=== PATIENT | male | born 1945 | race Caucasian/White ===

== ENCOUNTER → 2018-06-24 13:48 | Outpatient (CLI) | payer MEDICARE, OTHER, SELFPAY | PROVIDERS: Family Provider Internal Medicine; PCP Internal Medicine; Referring Provider Internal Medicine; Visit Provider Internal Medicine | DX: R09.89 Other specified symptoms and signs involving the circulatory and respiratory systems (principal) | CPT/HCPCS: 93225; 93226 ==

== ENCOUNTER 2018-07-25 10:51 | Emergency (ER) | payer MEDICARE, OTHER, SELFPAY ==
[2017-10-16 16:11] VITALS: BMI 26.2
[2018-07-25 10:52] VITALS: BP 112/69; PULSE 74; RESP 16; TEMP 36.3; O2SAT 94; BMI 25.2
--- NOTE | 2018-07-25 11:28 | EKG12_ITS ---
Test Reason : CP Blood Pressure : / mmHG Vent. Rate : 060 BPM Atrial Rate : 060 BPM P-R Int : 144 ms QRS Dur : 074 ms QT Int : 424 ms P-R-T Axes : 069 -30 063 degrees QTc Int : 424 ms Normal sinus rhythm Left axis deviation Septal infarct , age undetermined Abnormal ECG Confirmed by ALONA WALKER, LETY ([id number]), editor greeting card MUSTAPHA ECKERT ([id number]) on 07/29/2018 11:41:50 AM Referred By: KEISHA/EZRA Confirmed By:LETY SAGE MD
--- NOTE | 2018-07-25 11:30 | RAD_ITS ---
STUDY: X-RAY CHEST REASON FOR EXAM: Male, 73 years old. Chest pain, history of OR and stent TECHNIQUE: Single AP portable view of the chest. COMPARISON: Previous study of 06/19/2017 FINDINGS: site monitor leads are present. The lungs are clear and expanded. There is no demonstrated pleural abnormality. Normal size heart. Normal mediastinum and tremayne. Normal visualized pulmonary arteries. There are calcified plaques of the aortic arch. Normal visualized thoracic spine. Normal visualized ribs, clavicles, and shoulders. There is no demonstrated abnormality of the visualized soft tissue structures of the upper abdomen. RAD/Chest 1 View (Portable) IMPRESSION: Calcified plaques of the aortic arch. No acute cardiopulmonary disease process is seen. Electronically Signed: Charles Maria MD at 11:55 EST , Service support ,
[2018-07-25 11:31] VITALS: O2SAT 100
[2018-07-25 11:49] LABS: Absolute Lymphocyte Count 0.81 X10^3/ul (0.83-4.51); Absolute Neutrophil Count 4.6 X10^3/uL (2.0-7.7); Basophil# 0.04 X10^3/uL; Basophil% 0.6 % (0-1); Eosinophils% 4.5 % (0-5); Hematocrit 43.4 % (40-54); Hemoglobin 14.5 g/dl (13.0-16.5); Lymphocyte # 0.81 X10^3/ul (4.0); Lymphocyte % 12.1 % (19-41); Mean Corp Hgb Conc 33.4 g/gl (32-36); Mean Corpuscular Hgb 30.5 pg (27.0-32.0); Mean Corpuscular Volume 91.2 fL (80-94); Mean Platelet Vol. 10.7 fl (6.2-12.0); Monocyte# 0.94 X10^3/uL; Monocyte% 14.1 % (0-10); Neutrophil # 4.57 X10^3/uL (2.7-7.7); Neutrophil % 68.6 % (47-70); POSITIVE COUNT NO; POSITIVE DIFFERENTIAL NO; POSITIVE MORPHOLOGY NO; Platelet Count 206 K/mm3 (150-450); RBC Distribution Width CV 15.1 % (11.6-14.6); RBC Distribution Width SD 49.6 fl (35.1-43.9); Red Blood Count 4.76 M/mm3 (4.6-6.2); White Blood Count 6.7 K/mm3 (4.4-11.0)
[2018-07-25 12:01] LABS: Anion Gap 5 (5-15); BUN 12 mg/dL (7-18); BUN/Creat Ratio 11.7 RATIO (10-20); Calcium,Total 8.5 mg/dL (8.5-10.1); Chloride 108 mmol/L (98-107); Creatinine, Serum 1.03 mg/dL (0.70-1.30); EST Glomerular Filtration Rate 76 mL/min (>60); Est Glom Filt Rate - Afr Amer 91 mL/min (>60); Estimated Creatinine Clearance 63.64 ml/min; Glucose 99 mg/dL (74-106); Sodium Level 142 mmol/L (136-145)
[2018-07-25 12:11] VITALS: BP 124/70; PULSE 66; RESP 14; O2SAT 96
--- NOTE | 2018-07-25 13:05 | ED.DCSUM_ITS ---
- ER Visit Summary Date of Service: 07/25/18 Chief Complaint: Chest pain History of Present Illness: The patient is a 73 M with chest pain that is now resolved. It is mostly on the right side of his chest. He has had this in the past. He has no shortness of breath or cough. No fever or chills. He is now asymptomatic. He has a history of coronary artery disease. Physical Examination: Not appear in acute distress. Moist mucous membranes, no obvious facial deformity No C-spine tenderness supple neck. Regular rate and rhythm without any obvious murmurs Clear lungs bilaterally speaking in full sentences without any obvious respiratory distress. Right-sided chest wall pain is somewhat reproducible. Abdomen soft and nontender no guarding or rebound Moves all extremities without any difficulty or pain. Skin does not show any obvious rashes or lesions, no trauma. Alert oriented ?3 with no gross focal deficit Emergency Department Course and Treatment: Cardiac workup is unremarkable. Initial troponin is negative. The patient's risk factors I repeated a troponin, clinical history is unlikely for cardiac disease but for safety 2 different troponins were done. This was also unremarkable. 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 His worsening symptoms needs to return. Disposition: Discharge stable condition Impression: Chest pain This note was generated with [employer] dictation software. It may contain incorrect words, spelling, and punctuation that were not noted in review of the chart prior to signing ED Disposition - Plan for ED Patient: Disposition: Home or Assisted Living Chief Complaint: Chest Pain Instructions: ED Chest Pain Atypical Unkn Cause Referrals: Yen Hamlin DO [Primary Care Provider] - 3-5 Days
[2018-07-25 14:30] VITALS: BP 116/67; PULSE 75; RESP 18; O2SAT 92
[2018-07-25 15:21] VITALS: BP 118/102; PULSE 72; RESP 16; O2SAT 93
== END 2018-07-25 15:22 | disposition home or self-care (01) ==
PROVIDERS: Emergency Provider Emergency Medicine; Family Provider Internal Medicine; PCP Internal Medicine
DX: R07.9 Chest pain, unspecified (principal); I25.10 Atherosclerotic heart disease of native coronary artery without angina pectoris; J44.9 Chronic obstructive pulmonary disease, unspecified; I10 Essential (primary) hypertension; E78.00 Pure hypercholesterolemia, unspecified; Z79.02 Long term (current) use of antithrombotics/antiplatelets; Z79.899 Other long term (current) drug therapy
CPT/HCPCS: 71045; 80048; 84484; 85025; 93005; 99284; A4216

== ENCOUNTER → 2018-11-25 10:45 | Outpatient (CLI) | payer MEDICARE, OTHER, SELFPAY ==
[2018-11-11 13:01] VITALS: BMI 26.3
== END ==
PROVIDERS: Family Provider Internal Medicine; PCP Internal Medicine; Referring Provider Physician Assistant Medical; Visit Provider Physician Assistant Medical
DX: I49.3 Ventricular premature depolarization (principal)
CPT/HCPCS: 93225; 93226

== ENCOUNTER → 2018-12-11 13:31 | Outpatient (CLI) | payer MEDICARE, OTHER, SELFPAY ==
[2018-11-11 13:01] VITALS: BMI 26.3
--- NOTE | 2018-12-11 13:34 | CT_ITS ---
STUDY: LOW DOSE CT LUNG CANCER SCREENING REASON FOR EXAM: Male, 73 years old. 50 years of smoking, 1-3 packs per day RADIATION DOSAGE (If Supplied By Facility): CTDIvol = ( 2.55 ) mGy, DLP = ( 88.06 ) mGycm TECHNIQUE: No contrast was administered. Low dose technique was utilized (average mAS-38 and kVp 120). 1.25 mm axial source images with a slice interval of 1.25-mm were reconstructed in lung windows. 2.5 mm axial source images with a slice interval of 2.5-mm were reconstructed in lung windows. 5.0 mm axial source images with a slice interval of 5.0-mm were reconstructed in soft tissue windows. Nodule measured using lung windows on PACS and/or independent workstation with automated measurement of minimum and maximum diameter. Nodule measurement reported as average diameter rounded to the nearest whole number. Growth is defined as an increase ins size of greater than 1.5 mm. COMPARISON: 06/03/2017 NODULES: Total lung nodules (excluding granulomas): 0 Emphysema: Central lobular emphysema and multiple pulmonary lobes but predominantly the upper segments. Reticular fibrotic changes at the bilateral lung apices, right middle lobe and the bilateral lower lobes overall similar. Endobronchial lesion: None Aorta: Atherosclerosis throughout the thoracic aorta. Coronary arteries: Moderate atherosclerosis. Heart: Normal size Pulmonary artery: Unremarkable unopacified appearance Mediastinal nodes: No adenopathy. Other chest and abdominal findings: Multiple hepatic cysts are grossly similar. CT/Low Dose CT Lung Screening IMPRESSION: Lung-RADS category 2 - Continue annual screening with LDCT in 12 months. Centrilobular emphysema, atherosclerosis including coronary arteries IMPORTANT NOTES FOR USE: ACR Lung-RADS Version 1.0 Assessment Categories Release Date: January 03, 2014 Category: Coded 0-4 bases on nodule(s) with highest degree of suspicion. Negative screen is defined as categories 1 and 2; a positive screen is defined as categories 3 and 4. Category 3 and 4A nodules that are unchanged on interval CT should be coded as category 2, and individuals returned to screening in 12 months. Category 4X: Category 3 or 4 nodules with additional imaging findings that increase the suspicion of lung cancer, such as spiculation, GGN that doubles in size in 1 year, enlarged lymph notes, etc. Category Modifiers: S (significant finding unrelated to lung cancer) and C (prior history of treated lung cancer) may be added to the 0-4 Lung-RADS Electronically Signed: Rajesh Barber MD at 13:12 EDT , Service support ,
== END ==
PROVIDERS: Family Provider Internal Medicine; PCP Internal Medicine; Referring Provider Internal Medicine Pulmonary Disease; Visit Provider Internal Medicine Pulmonary Disease
DX: Z87.891 Personal history of nicotine dependence (principal)
CPT/HCPCS: G0297

== ENCOUNTER → 2019-02-10 | Outpatient (CLI) | payer MEDICARE, OTHER, SELFPAY ==
[2019-01-05 10:55] VITALS: BMI 26.3
--- NOTE | 2019-02-10 06:47 | ECHOD_ITS ---
Reason For Study: Palpitations Procedure This was a 2D Doppler, Color Flow transthoracic echocardiogram. Exam performed in department. Left Ventricle Normal LV size. Left ventricular systolic function is normal. The estimated ejection fraction is 55 %. Stage 2 diastolic dysfunction. No regional wall motion abnormalities noted. Right Ventricle Normal RV size. Normal systolic function. Atria Normal left atrium. Normal right atrium. Mitral Valve Normal mitral valve. Mild (1+) eccentric mitral valve insufficiency. Tricuspid Valve Normal tricuspid valve. Mild tricuspid valve insufficiency. Pulmonary artery systolic pressure is 39 mmHg. Aortic Valve Normal aortic valve. Pulmonic Valve Normal pulmonic valve. Great Vessels Normal aortic root. The pulmonary artery is normal size. Normal inferior vena cava. Pericardium/Pleural No pericardial effusion. MMode/2D Measurements & Calculations LVIDd: 4.3 cm IVSd: 1.0 cm Ao root diam: 3.5 cm LVIDs: 3.2 cm LVPWd: 0.82 cm LA dimension: 3.6 cm RVDd: 3.3 cm FS: 25.4 % LAV(MOD-bp): 47.7 ml LA A4 area: 17.8 cm2 RA A4 area: 14.8 cm2 LAV(MOD-bp) Indexed: 25.2 ml/m2 LAV(MOD-sp2): 47.1 ml LAV(MOD-sp4): 45.7 ml Time Measurements MV dec time: 0.16 sec Doppler Measurements & Calculations MV E max rahul: 101.6 cm/sec Lat Peak E' Rahul: 8.8 cm/sec Med Peak E' Rahul: 8.7 cm/sec MV A max rahul: 70.5 cm/sec E/E' lat: 11.5 E/E' med: 11.7 MV E/A: 1.4 MV V2 max: 101.1 cm/sec MV P1/2t max rahul: 103.0 cm/sec Ao V2 max: 128.1 cm/sec MV max P.1 mmHg MV P1/2t: 103.7 msec Ao max P.6 mmHg MV V2 mean: 55.4 cm/sec MV dec slope: 290.9 cm/sec2 Ao V2 mean: 87.0 cm/sec MV mean P.4 mmHg MVA(P1/2t): 2.1 cm2 Ao mean P.4 mmHg MV V2 VTI: 31.9 cm Ao V2 VTI: 32.6 cm LV V1 max: 80.6 cm/sec MR max rahul: 610.6 cm/sec PA V2 max: 64.5 cm/sec LV V1 max P.6 mmHg MR max P.1 mmHg LV V1 mean P.1 mmHg MR mean rahul: 484.0 cm/sec LV V1 mean: 47.7 cm/sec MR mean P.0 mmHg LV V1 VTI: 19.1 cm MR VTI: 260.6 cm TR max rahul: 294.2 cm/sec TR max P.6 mmHg Interpretation Summary Normal LV size. Left ventricular systolic function is normal. The estimated ejection fraction is 55 %. Stage 2 diastolic dysfunction. Mild (1+) eccentric mitral valve insufficiency. Mild tricuspid valve insufficiency. Ordering Physician: Nancy Lozada Referring Physician: Nancy Lozada Performed By: Jason Camacho RCS
--- NOTE | 2019-02-10 17:16 | STRESSREP ---
Stress Test Report Exercise myocardial perfusion stress test. 74-year-old man with a history of chest pain. Medications: Plavix, Pravachol, Flomax,. Resting EKG demonstrates normal sinus rhythm with a rate of 58 bpm normal intervals are noted resting blood pressures 120/88 mmHg. The patient exercised according to regular [place] protocol for total duration of 6 minutes and 45 seconds. The maximum heart rate attained was 107 bpm which was 72% of maximum predicted heart rate the maximum workload was 8.1 metabolic equivalents. At rest there were no ST or T wave changes noted suggest ischemia at peak exercise upsloping ST changes only were noted with no meet the criteria for ischemia. No clinical angina was noted occasional premature ventricular complexes was noted. The resting blood pressure was 120/88 with a final blood pressure 130/88 mmHg. Myocardial perfusion protocol. 11.3 mCi of technetium 99m sestamibi was injected at rest. The patient exercised according to regular [place] protocol. At peak exercise 32.7 mCi of technetium 99m sestamibi was injected stress images were obtained stress and rest images were reconstructed and compared in the short axis vertical long horizontal long axis. Gated images were also obtained per Perfusion SPECT analysis: Review of the stress images demonstrate a normal cardiac silhouette size. There is a medium-sized defect noted involving the inferior wall on the stress images. The septum anterior wall and lateral wall appear to be well perfused. The resting images demonstrate a moderate amount of improvement in the inferior wall suggestive of moderate inferior ischemia present. Gated SPECT analysis: The gated ejection fraction is noted to be 56% with mild basal inferior hypokinesis. Conclusion: Abnormal exercise myocardial perfusion stress test with evidence of moderate inferior ischemia. Preserved ejection fraction.
== END | disposition home or self-care (01) ==
LOC: CVS 06:44
PROVIDERS: Family Provider Internal Medicine; PCP Internal Medicine; Referring Provider Physician Assistant Medical; Visit Provider Physician Assistant Medical
DX: I25.10 Atherosclerotic heart disease of native coronary artery without angina pectoris (principal); I49.3 Ventricular premature depolarization
CPT/HCPCS: 78452; 93017; 93306; A9500; A4216

== ENCOUNTER → 2019-02-15 | Outpatient (CLI) | payer MEDICARE, OTHER, SELFPAY ==
[2019-01-05 10:55] VITALS: BMI 26.3
--- NOTE | 2019-02-15 11:25 | RAD_ITS ---
STUDY: X-RAY CHEST REASON FOR EXAM: Male, 74 years old. Abnormal stress test. TECHNIQUE: Frontal and lateral views of the chest. COMPARISON: 07/25/2018 FINDINGS: The lungs are hyperexpanded. There are coarsened interstitial markings suggestive of mild chronic fibrosis. No gross focal infiltrates. No gross effusions. Normal size heart. Normal mediastinum and tremayne. Normal visualized pulmonary arteries. Normal visualized aortic arch and descending thoracic aorta. Normal visualized thoracic spine. Normal visualized ribs, clavicles, and shoulders. There is no demonstrated abnormality of the visualized soft tissue structures of the upper abdomen. RAD/Chest PA and Lateral IMPRESSION: There are findings consistent with COPD. There is no evidence of acute chest disease. Electronically Signed: Brandon Menezes MD at 17:29 EDT , Service support ,
[2019-02-15 11:33] LABS: Absolute Lymphocyte Count 1.11 X10^3/ul (0.83-4.51); Absolute Neutrophil Count 3.7 X10^3/uL (2.0-7.7); Basophil# 0.02 X10^3/uL; Basophil% 0.3 % (0-1); Eosinophils% 3.4 % (0-5); Hematocrit 44.1 % (40-54); Hemoglobin 14.7 g/dl (13.0-16.5); Lymphocyte # 1.11 X10^3/ul (4.0); Lymphocyte % 18.7 % (19-41); Mean Corp Hgb Conc 33.3 g/gl (32-36); Mean Corpuscular Hgb 29.9 pg (27.0-32.0); Mean Corpuscular Volume 89.8 fL (80-94); Mean Platelet Vol. 10.5 fl (6.2-12.0); Monocyte# 0.87 X10^3/uL; Monocyte% 14.7 % (0-10); Neutrophil # 3.72 X10^3/uL (2.7-7.7); Neutrophil % 62.7 % (47-70); Platelet Count 231 K/mm3 (150-450); RBC Distribution Width CV 15.1 % (11.6-14.6); RBC Distribution Width SD 49.6 fl (35.1-43.9); Red Blood Count 4.91 M/mm3 (4.6-6.2); White Blood Count 5.9 K/mm3 (4.4-11.0)
[2019-02-15 11:35] LABS: POSITIVE COUNT NO; POSITIVE DIFFERENTIAL NO; POSITIVE MORPHOLOGY NO
[2019-02-15 12:01] LABS: Anion Gap 9 (5-15); BUN 15 mg/dL (7-18); BUN/Creat Ratio 12.3 RATIO (10-20); Calcium,Total 8.8 mg/dL (8.5-10.1); Chloride 109 mmol/L (98-107); Creatinine, Serum 1.22 mg/dL (0.70-1.30); EST Glomerular Filtration Rate 62 mL/min (>60); Est Glom Filt Rate - Afr Amer 75 mL/min (>60); Glucose 90 mg/dL (74-106); Potassium 4.1 mmol/L (3.5-5.1); Sodium Level 144 mmol/L (136-145)
== END | disposition home or self-care (01) ==
LOC: LAB 11:14
PROVIDERS: Family Provider Internal Medicine; PCP Internal Medicine; Referring Provider Internal Medicine Cardiovascular Disease; Visit Provider Internal Medicine Cardiovascular Disease
DX: R94.39 Abnormal result of other cardiovascular function study (principal); I25.10 Atherosclerotic heart disease of native coronary artery without angina pectoris; I25.2 Old myocardial infarction; Z95.5 Presence of coronary angioplasty implant and graft; E78.5 Hyperlipidemia, unspecified; I71.9 Aortic aneurysm of unspecified site, without rupture
CPT/HCPCS: 36415; 71046; 80048; 85025

== ENCOUNTER 2019-02-17 06:42 | Day surgery (SDC) | payer MEDICARE, OTHER, SELFPAY ==
[2019-01-05 10:55] VITALS: BMI 26.3
[2019-02-16 08:02] VITALS: BMI 26.7
--- NOTE | 2019-02-16 16:48 | PCM.HP.BLA ---
History and Physical Details: SHAY UMSTAFA, is a 73 M who presents to the office today for a cardiovascular follow-up. He has a history of known coronary artery disease with previous angioplasty and stenting to the right coronary artery. His circumflex artery was totally occluded in the ramus intermedius and left anterior descending artery had mild disease. He also has a history of hyperlipidemia. Pt was restarted on his metoprolol d/t his 23% PVC burden. His metoprolol was discontinued in the past d/t intermediate 2:1 AV block. This was last year on a tilt test. He notes that the only had one episode of dizziness since restarting his metoprolol He does have SOB walking up steps, this is not new. He does keep himself active. He does not have any chest pain/heaviness. Intake Vital Signs 01/05/19 Body Mass Index (BMI) 26.3 01/05/19 Height 5 ft 7 in 01/05/19 Weight: 171 lb 01/05/19 Body Mass Index (BMI) 26.7 01/05/19 Blood Pressure 90/58 L 01/05/19 Blood Pressure Location Rt brachial 01/05/19 Blood Pressure Position Sitting 01/05/19 Respiratory Rate 18 01/05/19 Pulse Rate 68 01/05/19 Pulse Source Palpation Intake Visit Reasons: 1 M FU Accompanied by: Self Is patient in pain?: No Allergies No Known Allergies Allergy (Verified 11/11/18 13:02) Medications Albuterol IH (ProAir) [Proair Hfa] 1 puff INHALATION Q4H PRN PRN 01/25/14 [History Confirmed 01/05/19] Azelastine HCl [Astelin] 2 spray NASAL BID 01/25/14 [History Confirmed 01/05/19] Calcium Carbonate/Vitamin D3 [Calcium 600 + Vit D Tablet] 1 ea PO DAILY 01/25/14 [History Confirmed 01/05/19] Clopidogrel Bisulfate [Plavix] 75 mg PO DAILY 01/25/14 [History Confirmed 01/05/19] Multivitamins,Therapeutic [Multivitamin] 1 tab PO DAILY 01/25/14 [History Confirmed 01/05/19] Pravastatin [Pravachol] 80 mg PO DAILY 01/25/14 [History Confirmed 01/05/19] Tamsulosin HCl [Flomax] 0.4 mg PO DAILY 01/25/14 [History Confirmed 01/05/19] Temazepam [Restoril] 15 mg PO QHS PRN PRN 01/25/14 [History Confirmed 01/05/19] Tiotropium [place] [Spiriva 18 MCG] 1 puff INHALATION DAILY 01/25/14 [History Confirmed 01/05/19] Ascorbic Acid [Vitamin C] 1,000 mg PO PRN PRN 06/11/17 [History Confirmed 01/05/19] Citalopram [Celexa] 10 mg PO DAILY 06/11/17 [History Confirmed 01/05/19] Fluticasone 0.05% [Flonase Nasal [place]] 1 spray NASAL DAILY 06/11/17 [History Confirmed 01/05/19] Fluticasone/Salmeterol [Advair 250/50 Mcg Diskus] 1 puff INHALATION BID 06/11/17 [History Confirmed 01/05/19] Goldenseal/Echinacea Purpurea [Echinacea & Goldenseal Cap] 1 ea PO PRN PRN 06/11/17 [History Confirmed 01/05/19] Montelukast Sodium 10 mg PO DAILY 06/11/17 [History Confirmed 01/05/19] Pantoprazole Sodium 40 mg PO DAILY 06/11/17 [History Confirmed 01/05/19] fenofibric acid (choline) 135 mg capsule,delayed release 135 mg PO QDAY 10/13/17 [History Confirmed 01/05/19] metoprolol tartrate 25 mg tablet 12.5 mg PO BID tab 01/05/19 [History] [facility] Medical History Arteriosclerotic heart disease (ASHD) (Chronic) Hyperlipidemia (Chronic) Old 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 Social History Smoking Status: Former smoker ROS Const Const: Negative for fatigue, weakness, fever(s) or headache(s) Eyes Eyes: Negative for blind spots, loss of peripheral vision or transient loss of vision ENT ENT: Positive for dizziness; negative for headache(s) Cardio Chest Pain: No Palpitations: No Edema: None Muscle aches with walking: None Resp Respiratory: Negative for SOB with activity, SOB at rest, SOB orthopnea\SOB lying down or Cough GI GI: Negative nausea, vomiting, heartburn or vomiting blood/hematemesis : Negative for hematuria Musc Musc: Negative for muscle aches/ myalgia Neuro Neuro: Positive for dizziness; negative for headache(s) or weakness Eliseo Hematologic/Lymphatic: Negative for easy bleeding Endo Endo: Negative for fatigue Cardiology Exam Const Appearance: cooperative, no acute distress and well developed Orientation: alert, awake and oriented x3 Head Head: normocephalic and atraumatic Mouth: moist mucous membranes Eyes General: appearance normal, both eyes and all related structures Conjunctivae: conjunctivae normal Pupils: PERRL EOM: EOM intact bilaterally Neck Neck: normal visual inspection, no lymphadenopathy and no JVD Carotids: Negative bruit Neck Mass: Negative Neck mass Chest Chest inspection: normal inspection of the chest and symmetric chest movement Auscultation: Bilateral: Clear to Auscultation Cardio Palpation: normal PMI Rate: regular rate Rhythm: regular rhythm Heart sounds: S1 normal and S2 normal; negative rub, gallop or murmur GI GI: normal to inspection, soft, no hepatosplenomegaly and bowel sounds present; negative tender Neuro General: alert, awake, oriented x3, CN's II-XI intact bilaterally and moves all extremities Extremities Pulses: Normal: Right Posterior Tibial Pulse, Left Posterior Tibial Pulse, Right Radial Pulse, Left Radial Pulse Lower Extremity Edema: None: Bilateral Psych Psychological: normal affect Assessment & Plan 1. Arteriosclerotic heart disease (ASHD) I25.10 NAOMY to RCA 2008 Plan Patient does not have any symptoms of angina however it is been quite sometime since he has had a stress test done. Reviewed with Dr. Hoffman, will obtain a stress test and echocardiogram to evaluate for increase in PVCs Orders Orders: Nuclear Stress Test - Treadmil Today 2. Pure hypercholesterolemia E78.00 Plan Recent lipid profile has been reviewed. Patient will continue with his current dose of high intensity statin. 3. Frequent PVCs I49.3 Plan Patient does have low blood pressure readings. We will decrease his metoprolol back to 12.5 mg twice a day. We will continue to follow closely. As mentioned above will obtain a stress test and echocardiogram to evaluate for increase in PVC Orders Orders: Echo Complete Today Nuclear Stress Test - Treadmil Today Plan Detail Additional Comments The above patient was discussed with Dr. Hoffman, he agrees with plan of care. Thank you for allowing us to participate in patient's plan of care, if you have any questions please do not hesitate to call. This note was generated using a voice recognition system and there may be incorrect words, spelling or punctuation errors that were not noted when reviewing the office note prior to saving. 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 Echocardiogram in 2014 demonstrated: Normal LV size. Left ventricular systolic function is normal. The estimated ejection fraction is 60 %. Mild (1+) eccentric mitral valve insufficiency. Mild (1+) tricuspid valve insufficiency. Diagnostics Electrocardiogram 07/25/18 Cardiac Tilt Table Test 07/11/17 Chest X-Ray 07/25/18 Addendum: Patient underwent stress testing which was noted to be abnormal. The patient was counseled about the catheterization the risk benefits alternatives and he understood and agreed to proceed.
--- NOTE | 2019-02-17 09:05 | CL.D_ITS ---
Patient Name: SHAY MUSTAFA Study Date: 02/17/2019 Performing: Shawn Hoffman MD Ht: 66.92 inches 170 cm : 1945 Wt: 171.96 lbs 78 kg Age: 74 Gender: male BSA: 1.89 PROCEDURE(S) PERFORMED [id number]/LV CLINICAL PROFILE AND INDICATIONS Indications: Suspected CAD, Suspected CAD Heart Failure: None Stress/Imaging Date: 02/10/2019Stress Test with SPECT MPI: Positive Intermediate Risk CAD Presentations: No Sxs, no angina. CONCLUSIONS Previously placed stent in the right coronary artery is patent. Luminal irregularities in the left a nterior descending artery and a totally occluded mid small circumflex nondominant vessel. RECOMMENDATIONS Medical therapy Patient also noted to have multiple premature ventricular complexes and bradycardia. Will discontinu e metoprolol and start amiodarone 100 mg a day DESCRIPTION OF PROCEDURE The patient arrived to the procedure lab. The risks and benefits of the procedure as well as a full d escription of our services here and current unavailability of surgical backup were fully explained to the patient and/or their significant other prior to the catheterization. The Timeout was completed, verifying the correct patient and procedure. The patient's procedural site was prepped and draped in the usual fashion. Local anesthetic was given subcutaneously to right radial region with Lidocaine 2% . Using a modified Seldinger technique, arterial access was obtained via the right radial artery, a 6 Fr sheath was inserted. Left Coronary Artery selective angiography was performed in multiple views u sing a 5 Fr. 4.0 [place] catheter. Right Coronary Artery selective angiography was then performed in mu ltiple views using a 5 Fr. 4.0 [place] catheter. Left Ventriculography was performed in [place] projection using a 5 Fr. [place] catheter. LV to AO pullback pressures were then recorded.The arterial sheath was pulled and a TR Band was applied for hemostasis CORONARY ANGIOGRAPHY DOMINANCE: Right Dominant LEFT HEART ASSESSMENT Left Ventricular Ejection Fraction: by LV Gram 60 % Normal LV wall motion Normal Left Ventricular systolic function LEFT MAIN: Angiographically normal LEFT ANTERIOR DESCENDING ARTERY: Mild luminal irregularities less than 30% CIRCUMFLEX ARTERY: MID CIRC: is occluded RAMUS: Mild luminal irregularities RIGHT CORONARY ARTERY: MID RCA: Previously placed stent is patent COMPLICATIONS No Complications PROCEDURE MEDICATIONS Versed 1 mg IV Fentanyl 50 mcg IV Oxygen: 2 L/min via nasal cannula Heparin given IA 02/17/2019 08:43:16 Verapamil 2.5mg, Ntg 100mcgs, 2000 units of Heparin given IA 02/17/2019 08:43:16 SUMMARY OF HEMODYNAMIC DATA Time AIR REST ECG 07:05:21 AO 84/45 (57) SA 08:44:23 LV 84/0, 5 08:51:22 LV 81/0, 5 08:51:28 LV 75/-3, 8 08:52:27 LV 75/-4, 10 08:52:34 LVp 78/-2, 9 08:52:40 AOp 79/41 (57) 08:52:45 AO 100/52 (71) 08:53:11 Signed By Shawn Hoffman MD On 02/17/2019 9:04:14 AM Shawn Hoffman MD
== END 2019-02-17 11:25 | disposition home or self-care (01) ==
LOC: CLSP 06:43
PROVIDERS: Family Provider Internal Medicine; PCP Internal Medicine; Referring Provider Internal Medicine Cardiovascular Disease; Visit Provider Internal Medicine Cardiovascular Disease
DX: I25.10 Atherosclerotic heart disease of native coronary artery without angina pectoris (principal); I49.3 Ventricular premature depolarization; E78.00 Pure hypercholesterolemia, unspecified; I25.2 Old myocardial infarction; I71.9 Aortic aneurysm of unspecified site, without rupture; Z95.5 Presence of coronary angioplasty implant and graft; Z79.82 Long term (current) use of aspirin; Z79.899 Other long term (current) drug therapy; Z87.891 Personal history of nicotine dependence
CPT/HCPCS: 93458; 99152; 99153; J7040; C1769; C1894; Q9967

== ENCOUNTER → 2019-06-14 11:55 | Outpatient (CLI) | payer MEDICARE, OTHER, SELFPAY ==
[2019-03-05 14:45] VITALS: BMI 26.9
--- NOTE | 2019-06-14 11:58 | RAD_ITS ---
STUDY: X-RAY - RIGHT HAND REASON FOR EXAM: Male, 74 years old. Sensation of needle jabbing of distal second metacarpal region. TECHNIQUE: 3 view(s) of the hand. COMPARISON: None. FINDINGS: Normal radiocarpal articulation. Normal distal radioulnar joint. Normal visualized carpal bones. Normal carpal articulations There are degenerative changes of the first metacarpal greater multangular joint. Normal second through fifth carpometacarpal joints. Normal metacarpi. Normal metacarpophalangeal joint of the thumb. Normal interphalangeal joint of the thumb. Normal proximal and distal phalanges of the thumb. Normal metacarpophalangeal joints of the second through fifth fingers. Normal proximal and distal interphalangeal joints of the second through fifth fingers. Normal phalanges of the second through fifth fingers. The soft tissue structures are unremarkable. 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 The remaining osseous structures and articular surfaces as well as soft tissues of the right hand appear within normal limits. Electronically Signed: Charles Maria MD at 20:47 EDT , Service support ,
== END ==
PROVIDERS: Family Provider Internal Medicine; PCP Internal Medicine; Referring Provider Internal Medicine; Visit Provider Internal Medicine
DX: M79.641 Pain in right hand (principal)
CPT/HCPCS: 73130

== ENCOUNTER → 2019-07-09 10:51 | Outpatient (CLI) | payer MEDICARE, OTHER, SELFPAY ==
[2019-03-05 14:45] VITALS: BMI 26.9
--- NOTE | 2019-07-09 10:58 | RAD_ITS ---
STUDY: X-RAY - RIGHT HAND REASON FOR EXAM: Male, 74 years old. Sensation of needle jabbing of distal second metacarpal region. TECHNIQUE: 3 view(s) of the hand. COMPARISON: None. FINDINGS: Normal radiocarpal articulation. Normal distal radioulnar joint. Normal visualized carpal bones. Normal carpal articulations There are degenerative changes of the first metacarpal greater multangular joint. Normal second through fifth carpometacarpal joints. Normal metacarpi. Normal metacarpophalangeal joint of the thumb. Normal interphalangeal joint of the thumb. Normal proximal and distal phalanges of the thumb. Normal metacarpophalangeal joints of the second through fifth fingers. Normal proximal and distal interphalangeal joints of the second through fifth fingers. Normal phalanges of the second through fifth fingers. The soft tissue structures are unremarkable. 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 The remaining osseous structures and articular surfaces as well as soft tissues of the right hand appear within normal limits. Electronically Signed: Charles Maria MD at 20:47 EDT , Service support ,
== END ==
PROVIDERS: Family Provider Internal Medicine; PCP Internal Medicine; Referring Provider Internal Medicine; Visit Provider Internal Medicine
DX: M19.041 Primary osteoarthritis, right hand (principal)
CPT/HCPCS: 73090

== ENCOUNTER → 2019-07-20 09:31 | Outpatient (CLI) | payer MEDICARE, OTHER, SELFPAY ==
[2019-03-05 14:45] VITALS: BMI 26.9
[2019-07-20 09:37] LABS: Bacteria 0 SEEN /hpf (None Seen); Mucous, Urine 0 SEEN /hpf (<or=2+); Red Blood Cells-Urine 0 SEEN /hpf (0-5); Squamous Epithelial Cells - UA 0 SEEN /hpf (0-5); White Blood Cells 0 SEEN /hpf (0-5)
[2019-07-20 12:21] LABS: Color, Urine Yellow (Yellow); Glucose, Dipstick Normal (Normal); Ketone-Dipstick Negative (Negative); Leukocyte Esterase-Dipstick Negative /ul (Negative); Nitrite-Dipstick Negative (Negative); Occult Blood-Urine Negative /ul (Negative); Protein-Dipstick Negative (Negative); Urine Bilirubin Dipstick Negative (Negative); Urine Clarity Clear (Clear); Urine Urobilinogen Normal (Normal)
[2019-07-20 12:23] LABS: Absolute Lymphocyte Count 0.69 X10^3/uL (0.83-4.51); Absolute Neutrophil Count 3.6 X10^3/uL (2.0-7.7); Basophil# 0.03 X10^3/uL; Basophil% 0.6 % (0-1); Eosinophil# 0.15 X10^3/uL; Eosinophils% 2.8 % (0-5); Hematocrit 46.5 % (40-54); Lymphocyte # 0.69 X10^3/ul (4.0); Lymphocyte % 12.8 % (19-41); Mean Corp Hgb Conc 32.3 g/dL (32-36); Mean Platelet Vol. 10.6 fl (6.2-12.0); Monocyte% 16.6 % (0-10); NRBC Flagged by Analyzer 0 % (0-5); Neutrophil # 3.62 X10^3/uL (2.7-7.7); Neutrophil % 66.8 % (47-70); Platelet Count 235 K/mm3 (150-450); RBC Distribution Width CV 14.9 % (11.6-14.6); RBC Distribution Width SD 50.8 fl (35.1-43.9); White Blood Count 5.4 K/mm3 (4.4-11.0)
[2019-07-20 12:43] LABS: Microalbumin,Random Urine < 5.0 mg/L (NO RANGE EST.)
[2019-07-20 12:59] LABS: Vitamin D,25 Hydroxy 29.5 ng/mL (29.95-100.01)
[2019-07-20 13:04] LABS: AST(SGOT) 21 U/L (15-37); Alanine Aminotransfer ALT/SGPT 30 U/L (16-61); Albumin, Serum 3.6 g/dL (3.2-5.0); Alkaline Phosphatase 40 U/L (45-117); Anion Gap 7 (5-15); BUN 17 mg/dL (7-18); BUN/Creat Ratio 13.3 RATIO (10-20); Calcium,Total 8.7 mg/dL (8.5-10.1); Chloride 107 mmol/L (98-107); Creatinine, Serum 1.28 mg/dL (0.70-1.30); EST Glomerular Filtration Rate 59 mL/min (>60); Est Glom Filt Rate - Afr Amer 71 mL/min (>60); Globulin 3.7 g/dL (2.2-4.2); Glucose 84 mg/dL (74-106); Potassium 4.1 mmol/L (3.5-5.1); Protein, Total 7.3 g/dL (6.4-8.2); Sodium Level 142 mmol/L (136-145); Thyroid Stim Hormone (TSH) 2.74 uIU/mL (0.358-3.74)
[2019-07-22 12:07] LABS: CHOLESTEROL TOTAL 185 mg/dL (100-199); HDL-C 54 mg/dL (>39); SMALL LDL-P 690 nmol/L (<=527); TRIGLYCERIDES 105 mg/dL (0-149)
[2019-07-22 15:41] LABS: INSULIN RESISTANCE SCORE 46 (<=45); LDL-C 110 mg/dL (0-99); LDL-P 1438 nmol/L (<1000)
== END ==
PROVIDERS: Family Provider Internal Medicine; PCP Internal Medicine; Referring Provider Internal Medicine; Visit Provider Internal Medicine
DX: E55.9 Vitamin D deficiency, unspecified (principal); E78.00 Pure hypercholesterolemia, unspecified; R73.09 Other abnormal glucose
CPT/HCPCS: 36415; 80053; 80061; 81001; 82043; 82306; 82570; 83704; 84443; 85025

== ENCOUNTER 2019-08-31 17:17 | Emergency (ER) | payer MEDICARE, OTHER, SELFPAY ==
[2019-07-27 09:44] VITALS: BMI 26.2
[2019-08-31 17:18] VITALS: BP 115/70; PULSE 75; RESP 16; TEMP 36.8; O2SAT 95; BMI 25.0
--- NOTE | 2019-08-31 17:32 | ED.DCSUM_ITS ---
History of Present Illness Chief Complaint: Laceration Informant: Patient Onset: Yesterday Context: Sudden Onset Timing: Continuous Current Severity: Moderate Maximum Severity: Moderate Narrative: The patient presents to the emergency department with skin tear to his right elbow. The patient is on Plavix for history of coronary vascular disease status post stenting. He states that he was walking up a ramp on his truck last night. He lost his balance and fell. He struck his right elbow against a crate. He states that there was a skin tear that he clipped off last night. He said a bandage on it today but he continues to weep. He did not strike his head. He denies loss of consciousness. He denies other injury. Prior similar symptoms: No Recent Illness/Hospitalization: No Past Medical History - Allergies and Home Meds Allergies/Adverse Reactions: Allergies No Known Allergies Allergy (Verified 08/31/19 17:20) Primary Care Physician: Yen Hamlin DO [Primary Care Provider] - Prior records reviewed: Yes Past Medical History: - - PVD, CVD Surgical History: noncontributory Smoking Status: Former smoker Review of Systems General: Denies: Chills, Fever, Sweats Eyes: Denies: Visual changes - bilaterally, Diplopia ENT: Denies: Rhinorrhea, Sore throat Cardiovascular: Denies: Chest pain, Palpitations Respiratory: Denies: Dyspnea, Cough, Dyspnea on exertion Gastrointestinal: Denies: Abdominal pain, Nausea, Vomiting, Diarrhea, Melena, Hematochezia Genitourinary: Denies: Dysuria, Hematuria, Frequency Musculoskeletal: Denies: Back pain, Extremity Pain Skin: Denies: Rash, Wounds Neurological: Denies: Headache, Weakness, Numbness Physical Exam Vital Signs/Narrative: Vital Signs Temp Pulse Resp BP Pulse Ox 08/31/19 17:18 98.3 F 75 16 115/70 95 Inital Vital Signs reviewed: Yes General: Well nourished, Well developed, No Acute Distress Head: Normocephalic, Atraumatic Eyes: Perrl, EOMI ENT: Moist mucous membranes, No rhinorrhea Neck: Supple, Nontender Cardiovascular: Regular rate, Regular rhythm, No murmurs Respiratory: No distress, CTA bilaterally, Chest nontender Abdomen: Soft, Nontender, Nondistended, Normal bowel sounds Back: Nontender, Normal Inspection Extremities: No edema, Tenderness - 2 cm circumferential skin tear with mild weeping, no pulsitile Skin: Normal color, No rash Neurological: Alert, Oriented x3, Cranial nerves II-XII grossly intact, Normal Strength, Normal Sensation Psychological: Normal affect, Normal Mood Diagnostic/Tx/Re-eval - Medical Decision Making The wound was cleaned and explored. He does have some venous weeping from the skin tear. There was no visible vessel or pulsatile bleeding. There is nothing that would benefit from primary closure. He is missing a decent flap of skin. With this, Surgicel and a dressing was applied. The patient tolerated this without issue. He will keep this in place for 24 hours and remove it tomorrow. He was counseled on concerning symptoms and reasons to return. He will be d ischarged home. Impression 1. Skin tear right elbow ED Disposition - Plan for ED Patient: Instructions: LACERATION, Old - Not Sutured Referrals: Yen Hamlin DO [Primary Care Provider] - Additional Instructions: Keep the dressing in place for 24 hours and you can remove it tomorrow evening.
[2019-08-31 17:59] VITALS: RESP 16
== END 2019-08-31 18:03 | disposition home or self-care (01) ==
LOC: ED 17:59
PROVIDERS: Emergency Provider Emergency Medicine; Family Provider Internal Medicine; PCP Internal Medicine
DX: S51.011A Laceration without foreign body of right elbow, initial encounter (principal); W01.0XXA Fall on same level from slipping, tripping and stumbling without subsequent striking against object, initial encounter; Y93.01 Activity, walking, marching and hiking; Y92.812 Truck as the place of occurrence of the external cause; I25.10 Atherosclerotic heart disease of native coronary artery without angina pectoris; Z95.5 Presence of coronary angioplasty implant and graft; Z79.02 Long term (current) use of antithrombotics/antiplatelets; Z87.891 Personal history of nicotine dependence
CPT/HCPCS: 99282

== ENCOUNTER 2019-11-05 13:30 | Observation (INO) | payer MEDICARE, OTHER, SELFPAY ==
[2019-11-05] VITALS (7 sets, daily range): BP systolic 111–132; BP diastolic 65–70; PULSE 63–85; RESP 18–20; TEMP 36.4–36.7; O2SAT 92–97; BMI 26.9; BMI 26.3
--- NOTE | 2019-11-05 13:54 | EKG12_ITS ---
Test Reason : CP Blood Pressure : / mmHG Vent. Rate : 079 BPM Atrial Rate : 079 BPM P-R Int : 156 ms QRS Dur : 070 ms QT Int : 388 ms P-R-T Axes : 074 012 078 degrees QTc Int : 444 ms Normal sinus rhythm Septal infarct , age undetermined Low voltage QRS (limb leads) Nonspecific T-Wave abnormality Abnormal ECG Confirmed by ANA WALKER, ELLA ([id number]), features editor TRAVON MANDUJANO ([id number]) on 11/08/2019 10:00:57 AM Referred By: BUD Confirmed By:ELLA PEREZ MD
--- NOTE | 2019-11-05 13:57 | RAD_ITS ---
EXAM DESCRIPTION: PORTABLE AP CHEST CLINICAL HISTORY: 74 years Male, CHEST PAIN; -- H/O MN, STENT, COPD/EMPHYSEMA CHEST PAIN; -- H/O MN, STENT, COPD/EMPHYSEMA COMPARISON: Previous PA and lateral chest obtained on 02/15/2019 FINDINGS: The thorax is intact. The heart and mediastinum appear to be within normal limits. The lungs appear to be well areated without evidence of pneumonic consolidation or pleural effusion. RAD/Chest 1 View (Portable) IMPRESSION: Normal portable chest. Electronically Signed: Gomez Glez, at 15:12 EST Tel , Service support ,
[2019-11-05 14:08] LABS: Absolute Lymphocyte Count 0.87 X10^3/uL (0.83-4.51); Absolute Neutrophil Count 4.5 X10^3/uL (2.0-7.7); Basophil# 0.04 X10^3/uL; Basophil% 0.7 % (0-1); Eosinophil# 0.11 X10^3/uL; Eosinophils% 1.8 % (0-5); Hematocrit 44.6 % (40-54); Hemoglobin 14.9 g/dL (13.0-16.5); Lymphocyte # 0.87 X10^3/ul (4.0); Lymphocyte % 14.3 % (19-41); Mean Corp Hgb Conc 33.4 g/dL (32-36); Mean Corpuscular Hgb 30.5 pg (27.0-32.0); Mean Corpuscular Volume 91.2 fL (80-94); Mean Platelet Vol. 10.3 fl (6.2-12.0); Monocyte% 9.8 % (0-10); NRBC Flagged by Analyzer 0 % (0-5); Neutrophil # 4.46 X10^3/uL (2.7-7.7); Neutrophil % 73.1 % (47-70); Platelet Count 258 K/mm3 (150-450); RBC Distribution Width CV 14.6 % (11.6-14.6); RBC Distribution Width SD 49.1 fl (35.1-43.9); Red Blood Count 4.89 M/mm3 (4.6-6.2); White Blood Count 6.1 K/mm3 (4.4-11.0)
--- NOTE | 2019-11-05 14:11 | ED.VIS.GEN ---
History of Present Illness Chief Complaint: Chest Pain Detail of Chief Complaint: Today with activity and awakened from sleep x7 days Informant: Patient Onset: Weeks Context: Sudden Onset Timing: Intermittent Quality: Tight heavy sensation Location: Mid chest Current Severity: Mild Maximum Severity: Moderate Worsened by: Nothing Relieved by: Improved with nitro Associated Symptoms: No associated symptoms did radiate to the intrascapular region Narrative: Patient is a 74-year-old male with history of coronary disease and other risk factors who presents with chest discomfort described as tightness with radiation to the back. He denied diaphoresis, nausea or shortness of breath. This occurred approximate 45 minutes prior to presentation. He did take nitroglycerin with significant improvement. He also admits to awakening from sleep between 2 AM and 4 AM with chest tightness that radiates to the shoulder. He denied PND, diaphoresis or nausea. He does have history of GERD. He states this feels different than his GERD. He also acknowledges swelling of his ankles in the past couple of days which is not normal for him. He denies history of congestive heart failure. He denies fever, chills night sweats. He denies cough or shortness of breath. He denies history of VTE. He denies leg pain, swelling discoloration. He denies black or maroon stool. He denies history of peptic ulcer disease. 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 (4) H/O right coronary artery stent placement Status: Resolved Comment: PCI-NAOMY-RCA 09/07/2009 Past Medical History - Allergies and Home Meds Allergies/Adverse Reactions: Allergies No Known Allergies Allergy (Verified 11/05/19 13:36) Primary Care Physician: Yen Hamlin DO [Primary Care Provider] - Prior records reviewed: Yes Surgical History: noncontributory Lives: Spouse/ Significant Other Smoking Status: Former smoker Alcohol: None Drugs: None Review of Systems General: Denies: Chills, Fever, Malaise Eyes: Denies: Visual changes - bilaterally, Blurred Vision - bilaterally ENT: Denies: Rhinorrhea, Sore throat Cardiovascular: Reports: Chest pain. Denies: Palpitations, Heart racing Respiratory: Denies: Dyspnea, Cough, Dyspnea on exertion, Orthopnea, Paroxysmal nocturnal dyspnea Gastrointestinal: Denies: Abdominal pain, Nausea, Vomiting, Diarrhea, Melena, Hematochezia Musculoskeletal: Reports: Back pain. Denies: Myalgias, Arthralgias, Neck pain, Swelling, Extremity Pain, -, - Skin: Denies: Rash Neurological: Denies: Headache, Weakness, Parasthesia Endocrine: Denies: Polyuria, Polydipsia Hematologic: Denies: Easy bruising, Easy bleeding Physical Exam Vital Signs/Narrative: Vital Signs Temp Pulse Resp BP Pulse Ox 11/05/19 13:31 97.9 F 85 20 H 111/65 92 Inital Vital Signs reviewed: Yes General: Well nourished, Well developed, No Acute Distress Head: Normocephalic, Atraumatic Eyes: Perrl, EOMI ENT: Moist mucous membranes, No rhinorrhea Neck: Supple, Nontender, No lymphadenopathy, No JVD Cardiovascular: Regular rate, Regular rhythm, No murmurs, Normal S1, Normal S2 Respiratory: No distress, CTA bilaterally, Chest nontender Abdomen: Soft, Nontender, Nondistended, Normal bowel sounds, No masses, - - There is no abdominal bruit.. Negative for: Mass, Pulsatile mass Back: Nontender, Normal Inspection Extremities: Nontender, Edema - Pitting approximately 2 mm Skin: Normal color, No rash Neurological: Alert, Oriented x3, Cranial nerves II-XII grossly intact, Normal Strength, Normal Sensation, Normal DTR Psychological: Normal affect, Normal Mood Diagnostic/Tx/Re-eval Chest X-Ray - ED: 1 View, Read by ED Physician, Normal, Heart, Lungs, Mediastinum, Bony Structures, No Acute Disease, Chronic Changes, - - X-ray is unchanged from February 15, 2019 11/05/19 13:57 Chest 1 View (Portable) [RAD] Stat Laboratory Results 11/05/19 11/05/19 13:35 13:35 WBC 6.1 RBC 4.89 Hgb 14.9 Hct 44.6 MCV 91.2 MCH 30.5 MCHC 33.4 RDW Std Deviation 49.1 H RDW Coeff of Demar 14.6 Plt Count 258 MPV 10.3 Immature Gran % (Auto) 0.300 Neut % (Auto) 73.1 H Lymph % (Auto) 14.3 L [place] % (Auto) 9.8 Eos % (Auto) 1.8 Baso % (Auto) 0.7 Absolute Neuts (auto) 4.5 Absolute Lymphs (auto) 0.87 Nucleated RBC % 0 Sodium 142 Potassium 4.0 Chloride 111 H Carbon Dioxide 26.0 Anion Gap 5 BUN 17 Creatinine 1.42 H Estim Creat Clear Calc 43.96 Est GFR (MDRD) Af Amer 63 Est GFR (MDRD) Non-Af 52 L BUN/Creatinine Ratio 12.0 Glucose 106 Calcium 9.0 Troponin I < 0.015 BC is unremarkable. Basic metabolic panel is normal. Troponin is normal. - EKG Initial EKG Interpretation: Sinus Rhythm - Sinus rhythm with ventricular rate of 79. [place] interval 106 ms. QRS duration 70 ms. QT duration 388 ms. [place] is normal. There is decreased anterior force noted. There is no evidence of acute ischemia. - Medical Decision Making Frontal diagnosis is cardiac ischemia, GERD, esophageal spasm, biliary and pulmonary etiology EKG was obtained. There is no evidence of acute ischemia. Chest x-ray was obtained as well as appropriate blood work. ED Disposition - Plan for ED Patient: Disposition: Acute [facility] Diagnosis: Midsternal chest pain Referrals: Yen Hamlin DO [Primary Care Provider] -
[2019-11-05] MEDS: Aspirin 81 MG TAB.CHEW 324 MG PO (14:18)
[2019-11-05 14:21] LABS: Anion Gap 5 (5-15); BUN 17 mg/dL (7-18); Chloride 111 mmol/L (98-107); Creatinine, Serum 1.42 mg/dL (0.70-1.30); EST Glomerular Filtration Rate 52 mL/min (>60); Est Glom Filt Rate - Afr Amer 63 mL/min (>60); Estimated Creatinine Clearance 43.96 ml/min; Glucose 106 mg/dL (74-106); Sodium Level 142 mmol/L (136-145)
--- NOTE | 2019-11-05 14:32 | HP.PCM_ITS ---
Problem List (1) Chest pain Status: Acute Qualifiers: Chest pain type: unspecified Qualified Code(s): R07.9 - Chest pain, unspecified (2) HTN (hypertension) Status: Chronic Qualifiers: Hypertension type: essential hypertension Qualified Code(s): I10 - Essential (primary) hypertension (3) COPD (chronic obstructive pulmonary disease) Status: Chronic Qualifiers: COPD type: unspecified COPD Qualified Code(s): J44.9 - Chronic obstructive pulmonary disease, unspecified (4) Former tobacco use Status: Chronic (5) Atherosclerotic heart disease of [place] coronary artery without angina pectoris Status: Chronic Comment: PCI-NAOMY-RCA 09/07/2009 (6) Hyperlipidemia Status: Chronic Qualifiers: Hyperlipidemia type: pure hypercholesterolemia Qualified Code(s): E78.00 - Pure hypercholesterolemia, unspecified; E78.0 - Pure hypercholesterolemia (7) IBS (irritable bowel syndrome) Status: Chronic Qualifiers: Irritable bowel syndrome type: unspecified Qualified Code(s): K58.9 - Irritable bowel syndrome without diarrhea (8) Anxiety and depression Status: Chronic (9) Symptomatic PVCs Status: Chronic (10) BPH (benign prostatic hyperplasia) Status: Chronic Qualifiers: Lower urinary tract symptom presence: unspecified whether lower urinary tract symptoms present Qualified Code(s): N40.0 - Benign prostatic hyperplasia without lower urinary tract symptoms (11) GERD (gastroesophageal reflux disease) Status: Chronic Qualifiers: Esophagitis presence: esophagitis presence not specified Qualified Code(s): K21.9 - Gastro-esophageal reflux disease without esophagitis (12) CKD (chronic kidney disease), stage III Status: Chronic History of Present Illness Date of Admission: 11/05/19 Chief Complaint: Chest pain The patient is a 74 y/o M w/ PMHx: CKD stage III, Chronic COPD, HTN, Symptomatic PVCs on amidarone, CAD s/p NAOMY RCA 2008, Hx Aortic aneurysm, GERD, Anxiety and Depression who presents to the [facility] ED on 11/05/19 with history of onset of chest discomfort more so midsternal reflux burning sensation over the last two nights, recently evaluated per ENT and GI with diagnosis GERD/esophagitis, on protonix with life changes encouraged including decrease of his 20 cup per day coffee intake; however, he then had on day of ED presentation, ~ 20 min prior to ED presentation, onset midsternal chest stabbing sensation, radiating outward and toward his back with no dyspnea, diaphoresis, nausea or emesis; however, notes he appeared suddenly extremely pale at onset with complete resolution following self NG administration. He notes that chest pain was rated at an 8 out of 10 at its worst, currently 0 out of 10 in severity. Patient notes when he had his prior [place] 2008 he had initially onset of similar type discomfort but it started in his back and this discomfort was similar in sensation. Work-up in the ED included T7.9, heart rate 85, BP 111/65, respiratory rate 20, 92% on room air, CBC with WC 6.1, hemoglobin 14.9, platelet 258 without market shift, BMP wi th chloride 111, BUN/creatinine 17/1.42 with baseline creatinine noted 1.2, troponin less than 0.015, chest x-ray with no acute cardiopulmonary findings similar to prior, EKG with sinus rhythm with no acute evidence of ischemia. In the ED patient ministered aspirin 324 mg p.o. x1. Past Medical History Past Medical History (Chronic Problems): Chronic Problems (Last Reviewed 07/27/19 @ 14:[address] 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 Shawn Hoffman MD) Atherosclerotic heart disease of [place] coronary artery without angina pectoris (Chronic) I25.10 PCI-NAOMY-RCA 09/07/2009 Old inferior wall myocardial infarction (Chronic) Onset Date: 09/07/09 I25.2 Hyperlipidemia (Chronic) E78.5 Aortic aneurysm of unspecified site without mention of rupture I71.9 COPD (chronic obstructive pulmonary disease) J44.9 Dizziness and giddiness (Inactive) R42 Allergies No Known Allergies Allergy (Verified 11/05/19 13:36) Home Medications: Ambulatory Orders Medication Instructions Recorded Albuterol IH (ProAir) [Proair Hfa] 1 puff INHALATION Q4H PRN PRN 01/25/14 Azelastine HCl [Astelin] 2 spray NASAL BID 01/25/14 Clopidogrel Bisulfate [Plavix] 75 mg PO DAILY 01/25/14 Tamsulosin HCl [Flomax] 0.4 mg PO DAILY 01/25/14 Temazepam [Restoril] 15 mg PO QHS PRN PRN 01/25/14 Tiotropium [place] [Spiriva 18 MCG] 1 puff INHALATION DAILY 01/25/14 Citalopram [Celexa] 10 mg PO DAILY 06/11/17 Fluticasone 0.05% [Flonase Nasal 1 spray NASAL DAILY 06/11/17 [place]] Fluticasone/Salmeterol [Advair 1 puff INHALATION BID 06/11/17 250/50 Mcg Diskus] Pantoprazole Sodium 40 mg PO DAILY 06/11/17 fenofibric acid (choline) 135 mg 135 mg PO QDAY 10/13/17 capsule,delayed release Amiodarone HCl 100 mg PO DAILY 11/05/19 Calcium Carbonate [Calcium] 600 mg PO DAILY 11/05/19 Montelukast [Singulair] 10 mg PO DAILY 11/05/19 Multivit-Min/FA/Lycopen/Lutein 1 ea PO DAILY 11/05/19 [Centrum Silver Men Tablet] Rifaximin [Xifaxan] 550 mg PO TID 11/05/19 Surgical History: Surgical History (Last Reviewed 07/27/19 @ 14:[address] Shawn Hoffman MD) H/O right coronary artery stent placement (Resolved) Onset Date: 09/07/09 Z95.5 PCI-NAOMY-RCA 09/07/2009 History of left heart catheterization Onset Date: 02/17/19 Z98.890 08/28/2009 [facility]-PCI- NAOMY to RCA; January 2010 [facility]; February 2012 [facility] History of right knee surgery Z98.890 Surgical History: - - PCI x1 to RCA 2008, right knee surgery. Psychiatric History: Anxiety, Depression Lives: Spouse/ Significant Other Smoking Status: Former smoker - Patient quit cigarette tobacco usage approximately 10 years prior to current presentation, prior to this was up to 2 to 3 pack/day but started when he was 18 years old he notes and at that time is only been smoking 1 pack/day. Alcohol: Occasional Drugs: None - *Family History Maternal Family History: Family History (Last Reviewed 07/27/19 @ 14:[address] Shawn Hoffman MD) Unknown No problems noted. History Items: - - Patient has a maternal family history of diabetes. Paternal Family History: Family History (Last Reviewed 07/27/19 @ 14:[address] Shawn Hoffman MD) Unknown No problems noted. History Items: - - Patient notes paternal family history of significant metastatic cancer, possibly liver primary, following liver biopsy with significant hemorrhage associated. Review of Systems Constitutional: Reports: Weakness, Fatigue. Denies: Anorexia, Chills, Fever, Malaise, Weight Change HEENT: Denies: Head Aches, Sinus Congestion, Sinus Drainage Cardiovascular: Reports: Chest Pain. Denies: Chest Pressure, Chest Tightness, Heaviness, Light Headedness, Orthopnea, Palpitations, Syncope Respiratory: Denies: Cough, Shortness of Breath, Shortness of breath at rest, Shortness of breath upon exertion, Sputum production Gastrointestinal: Denies: Abdominal Pain, Nausea, Vomiting Genitourinary: Denies: Dysuria Musculoskeletal: Reports: Back Pain, Joint Pain. Denies: Joint Tenderness Skin: Denies: Rash, Wounds Neurological: Denies: Focal weakness, Numbness, Tingling Psychiatric: Reports: Anxiety, Depression. Denies: Homicidal Ideations, Suicidal Ideations Hematologic/ Lymphatic: Reports: Easy Bruising, Easy Bleeding VTE Information - Inpt Only VTE Present on Admission: No VTE Mechan Device Prophylaxis: SCD's VTE Pharm Prophylaxis ordered?: Yes Patient Problems: Active and Suspected Problems (Last Reviewed 07/27/19 @ 14:[address] Shawn Hoffman MD) Chest pain (Acute) Subjective: Seated upright in ED bed, no acute distress, chest pain-free currently. Objective: Physical Examination: General: awake, alert, oriented x 3 and cooperative, seated upright in the ED bed in no apparent distress, currently denies any recurrent chest discomfort. Skin: normal color, turgor, no icterus, cyanosis. HEENT: AT/NC, EOMI, right pupil 2 mm, left pupil 3 to 4 mm, chronically different secondary to surgery patient notes otherwise reactive round to light and accommodation, MMM, no carotid bruits or JVD noted. Lungs: CTA bilaterally, moderate effort, or it decrease BL bases, no rales, ronchi or wheezing. Heart: Regular rate and rhythm; no gallop, rub audible. Abdomen: soft, NTTP, ND, normal BS, no HSM. Extremities: no cyanosis, clubbing, or edema. Neurological: patient awake, alert, oriented x 3; cognitive function intact; pupils equally reactive to light and accomodation; cranial nerves II-XII grossly normal, moving all 4 extremities, no focal deficits, strength currently intact, preserved. Psychiatric: affect appears normal, no acute evidence of depressive or anxiety feelings. - Physical Exam Vitals/I&O's: Vital Signs Temp Pulse Resp BP Pulse Ox 97.9 F 85 20 H 111/65 96 11/05/19 13:31 11/05/19 13:31 11/05/19 13:31 11/05/19 13:11/05/19 13:54 Oxygen Delivery Method Room Air Weight: 171 lb 11.841 oz Body Mass Index (BMI) 26.9 Laboratory Results 11/05/19 13:35: WBC 6.1, RBC 4.89, Hgb 14.9, Hct 44.6, MCV 91.2, MCH 30.5, MCHC 33.4, RDW Std Deviation 49.1 H, RDW Coeff of Demar 14.6, Plt Count 258, MPV 10.3, Immature Gran % (Auto) 0.300, Neut % (Auto) 73.1 H, Lymph % (Auto) 14.3 L, [place] % (Auto) 9.8, Eos % (Auto) 1.8, Baso % (Auto) 0.7, Absolute Neuts (auto) 4.5, Absolute Lymphs (auto) 0.87, Nucleated RBC % 0 11/05/19 13:35: Sodium 142, Potassium 4.0, Chloride 111 H, Carbon Dioxide 26.0, Anion Gap 5, BUN 17, Creatinine 1.42 H, Estim Creat Clear Calc 43.96, Est GFR (MDRD) Af Amer 63, Est GFR (MDRD) Non-Af 52 L, BUN/Creatinine Ratio 12.0, Glucose 106, Calcium 9.0, Troponin I < 0.015 Assessment/Plan All Active Problems (Last Reviewed 07/27/19 @ 14:[address] Shawn Hoffman MD) Chest pain (Acute) H/O right coronary artery stent placement (Resolved 09/07/09) Abnormal nuclear stress test (Resolved) The patient is a 74 y/o M w/ PMHx: CKD stage III, Chronic COPD, HTN, Symptomatic PVCs on amidarone, CAD s/p NAOMY RCA 2008, Hx Aortic aneurysm, GERD, Anxiety and Depression who presents to the [facility] ED on 11/05/19 with history of onset of chest discomfort more so midsternal reflux burning sensation over the last two nights, recently evaluated per ENT and GI with diagnosis GERD/esophagitis, on protonix with life changes encouraged including decrease of his 20 cup per day coffee intake; however, he then had on day of ED presentation, ~ 20 min prior to ED presentation stabbing chest tightness, midsternal with radiation. 1. Chest Pain: EKG in ED with sinus rhythm with no acute evidence of ischemia, CXR w/ no acute cardiopulmonary findings, initial trop normal x1. Will admit to PCU, place on a monitored bed to assure no acute myocardial infarction with serial cardiac enzymes and EKGs. Patient is unable to perform exercise thus will proceed with AM nuclear stress testing. ASA, NG, morphine. FLP in AM. Mag pending. 2. CAD: Status post PCI RCA 2008, recent 02/17/29 cardiac catheterization with noted previously placed stent RCA patent, luminal irregularities in the left anterior descending artery and a totally occluded mid small circumflex nondominant vessel with demonstrated multiple premature ventricular complexes and bradycardia therefore at that time patient's metoprolol had been discontinued and he had been initiated on amiodarone 100 mg daily. We will continue patient home aspirin, statin, no longer on his beta-caryl therapy. 3. Anxiety and depression: We will continue patient home citalopram, temazepam regimen. 4. Hypertension: Recently taken off of his beta-caryl therapy, transition to amiodarone secondary to bradycardia noted during cardiac catheterization previously as well as PVCs, clarifying BP regimen, PRN hydralazine. 5. History of frequent PVCs: We will continue patient home amiodarone regimen. 6. Hyperlipidemia: Continue home statin regimen. AM FLP. 7. Chronic COPD: Maintain on ATC duonebs, PRN albuterol, HOB, IS parameters. 8. GERD: We will continue patient home PPI. 9. BPH: We will continue patient on Flomax regimen. 10. Chronic Kidney Disease Stage III: Admission BUN/Cr 17/1.42, baseline renal function 1.2, repeat BMP in AM. 11. DVT prophylaxis: SCDs, Lovenox. 12. CODE status: Patient MARYCHUY is his who is present and living will is currently in place. Discussed CODE status at length including difference between FULL code, DNR-CCA and DNR-CC status. Following discussions about the differences in these status, requested full CODE STATUS. Advanced Care Planning Face to Face Time: 16 minutes. Code Visit OBSV E&M: 68553 Initial observation care L3 Procedures: 84145 Advncd Care Plan 30 Min
--- NOTE | 2019-11-05 16:12 | EKG12_ITS ---
Test Reason : CP ADMISSION Blood Pressure : / mmHG Vent. Rate : 069 BPM Atrial Rate : 069 BPM P-R Int : 164 ms QRS Dur : 080 ms QT Int : 418 ms P-R-T Axes : 070 -02 079 degrees QTc Int : 447 ms Normal sinus rhythm Low Voltage QRS (Limb Leads) Septal infarct Age undetermined Abnormal ECG Confirmed by ANA WALKER, ELLA ([id number]), news editor SLIM PERKINS ([id number]) on 11/10/2019 2:04:07 PM Referred By: ALEKSANDAR Confirmed By:ELLA PEREZ MD
[2019-11-05] MEDS: 0.9% Saline Lock 10 ML Syringe IV (16:56)
[2019-11-05] MEDS: Tamsulosin HCl 0.4 MG Capsule PO (17:37)
[2019-11-05] MEDS: Pravastatin 80 MG Tablet PO (21:27)
[2019-11-05] MEDS: rifAXIMin 550 MG Tablet PO (21:27)
[2019-11-05] MEDS: 0.9% Normal Saline 1,000 ML 100 ML IV (21:27)
--- NOTE | 2019-11-06 01:41 | EKG12_ITS ---
Test Reason : AM EKG Blood Pressure : / mmHG Vent. Rate : 061 BPM Atrial Rate : 061 BPM P-R Int : 166 ms QRS Dur : 086 ms QT Int : 454 ms P-R-T Axes : 074 -22 072 degrees QTc Int : 457 ms Normal sinus rhythm Low voltage QRS (Limb Leads) Nonspecific T- wave abnormality Septal infarct , age undetermined Abnormal ECG Confirmed by ANA WALKER, ELLA ([id number]), marketing editor SLIM PERKINS ([id number]) on 11/10/2019 1:49:08 PM Referred By: DR HUERTAS Confirmed By:ELLA PEREZ MD
[2019-11-06 02:59] VITALS: PULSE 62
[2019-11-06 03:00] VITALS: BP 119/71; PULSE 63; RESP 18; TEMP 36.5; O2SAT 93
[2019-11-06 05:17] VITALS: BP 96/56; PULSE 65; RESP 18; TEMP 36.4; O2SAT 93
[2019-11-06] MEDS: Clopidogrel Bisulfate 75 MG Tablet PO (05:28)
[2019-11-06] MEDS: Acetaminophen 325 MG Tablet 650 MG PO (05:28)
[2019-11-06] MEDS: Aspirin E.C. 81 MG Tablet PO (05:28)
[2019-11-06] MEDS: rifAXIMin 550 MG Tablet PO (05:30)
[2019-11-06 06:44] LABS: Absolute Lymphocyte Count 1.06 X10^3/uL (0.83-4.51); Absolute Neutrophil Count 3.2 X10^3/uL (2.0-7.7); Basophil# 0.05 X10^3/uL; Basophil% 0.9 % (0-1); Eosinophil# 0.16 X10^3/uL; Hemoglobin 14.4 g/dL (13.0-16.5); Lymphocyte # 1.06 X10^3/ul (4.0); Lymphocyte % 19.7 % (19-41); Mean Corp Hgb Conc 32.7 g/dL (32-36); Mean Corpuscular Hgb 29.9 pg (27.0-32.0); Mean Corpuscular Volume 91.3 fL (80-94); Monocyte# 0.87 X10^3/uL; Monocyte% 16.2 % (0-10); NRBC Flagged by Analyzer 0 % (0-5); Neutrophil # 3.23 X10^3/uL (2.7-7.7); Platelet Count 247 K/mm3 (150-450); RBC Distribution Width CV 14.6 % (11.6-14.6); RBC Distribution Width SD 49.1 fl (35.1-43.9); Red Blood Count 4.82 M/mm3 (4.6-6.2); White Blood Count 5.4 K/mm3 (4.4-11.0)
[2019-11-06 06:45] VITALS: PULSE 76
[2019-11-06 06:50] LABS: International Normalized Ratio 1.1; Partial Thromboplast Time 39.4 Seconds (24.1-36.2); Prothrombin Time (Protime)PT. 14.3 SECONDS (11.7-14.9)
[2019-11-06 07:06] LABS: Anion Gap 5 (5-15); BUN 17 mg/dL (7-18); BUN/Creat Ratio 14.7 RATIO (10-20); Calcium,Total 8.4 mg/dL (8.5-10.1); Chloride 114 mmol/L (98-107); Cholesterol 157 mg/dL (200); Creatinine, Serum 1.16 mg/dL (0.70-1.30); EST Glomerular Filtration Rate 66 mL/min (>60); Est Glom Filt Rate - Afr Amer 79 mL/min (>60); Estimated Creatinine Clearance 53.82 ml/min; Glucose 78 mg/dL (74-106); High Density Lipoprotein 48 mg/dL; Potassium 3.7 mmol/L (3.5-5.1); Sodium Level 143 mmol/L (136-145); Triglycerides 102 mg/dL; Very Low Density Lipoprotein 20 mg/dL (5-40)
[2019-11-06 08:35] VITALS: O2SAT 94
[2019-11-06 12:00] VITALS: BP 99/68; PULSE 75; RESP 16; TEMP 36.6; O2SAT 92
--- NOTE | 2019-11-06 13:17 | STRESSREP ---
Stress Test Report Date: 11-06-2019 Procedure: Exercise tolerance test/imaging study Indications: Chest pain; CAD; PCI Consent: Per the patient Procedure: The patient exercised on a [place] protocol for 5 minutes and 30 seconds completing Stage I and 2 minutes and 30 seconds of Stage II achieving a peak heart rate of 126 bpm (85 % predicted maximal heart rate) with a peak blood pressure 160/72 mmHg and a peak MET capacity of 7 METs. The baseline ECG demonstrated normal sinus rhythm. The peak exercise ECG demonstrated no obvious ECG changes. There was an isolated PVC during recovery. The functional capacity was considered average. There was no complaint of chest discomfort during exercise or recovery. The examination was discontinued secondary to dyspnea. Impression: 1. Technically adequate (percent predicted maximal heart rate greater than 85%) exercise tolerance test 2. Peak exercise ECG no obvious ECG changes 3. There was an isolated PVC during recovery 4. Nuclear images pending Myocardial perfusion imaging study: Technique: The patient was injected with 12.0 mCi of technetium 99m Cardiolite and subsequently rest SPECT Cardiolite nuclear imaging was obtained in the horizontal long, vertical long, and short axis views. The patient exercised on a [place] protocol for 5 minutes and 30 seconds completing Stage I and 2 minutes and 30 seconds of Stage II achieving a peak heart rate of 126 bpm (85 % predicted maximal heart rate) with a peak blood pressure 160/72 mmHg and a peak MET capacity of 7 METs. The patient was injected with 36.0 mCi of technetium 99m Cardiolite and subsequently stress SPECT Cardiolite nuclear imaging was obtained in the horizontal long, vertical long, and short axis views. A gated Cardiolite study at peak stress was obtained. Interpretation: Rest and stress SPECT Cardiolite nuclear imaging status post realignment, normalization, and attenuation correction, demonstrates the appearance of relative uniform tracer uptake and myocardial perfusion appearing within normal limits. There is end systolic thickening and brightening. The gated Cardiolite study demonstrates myocardial thickening and inward wall motion. The reported LVEF is 63 %. Impression: 1. Rest and stress SPECT Cardiolite nuclear imaging demonstrate relative uniform tracer uptake and myocardial perfusion appearing within normal limits. 2. The gated Cardiolite study reports an LVEF of 63 %. This note was generated with [employer] software. It may contain incorrect words, spelling, and punctuation that were not noted in checking the note before signing.
--- NOTE | 2019-11-06 13:46 | DCINST_ITS ---
- Discharge Diagnoses Current Active Problems: Current Active and Chronic Problems (Last Reviewed 07/27/19 @ 14:[address] Shawn Hoffman MD) Chest pain (Acute) HTN (hypertension) (Chronic) COPD (chronic obstructive pulmonary disease) (Chronic) Former tobacco use (Chronic) IBS (irritable bowel syndrome) (Chronic) Anxiety and depression (Chronic) Symptomatic PVCs (Chronic) BPH (benign prostatic hyperplasia) (Chronic) GERD (gastroesophageal reflux disease) (Chronic) CKD (chronic kidney disease), stage III (Chronic) Midsternal chest pain (Acute) You will use the following diet at home:: No restrictions Your food should be the consistency of: Regular Your liquids should be the consistency of: Regular/Thin Discharge Activity: Return to Normal Activity Weight Bearing Status: Full weight bearing Additional Instructions: Resume aspirin as directed by your computer numerical control operator Allergies/Adverse Reactions: Allergies No Known Allergies Allergy (Verified 11/05/19 13:36) Medications to take at Discharge Albuterol IH (ProAir) [Proair Hfa] 1 puff INHALATION Q4H PRN PRN 01/25/14 Azelastine HCl [Astelin] 2 spray NASAL BID 01/25/14 Clopidogrel Bisulfate [Plavix] 75 mg PO DAILY 01/25/14 Tamsulosin HCl [Flomax] 0.4 mg PO DAILY 01/25/14 Temazepam [Restoril] 15 mg PO QHS PRN PRN 01/25/14 Tiotropium [place] [Spiriva 18 MCG] 1 puff INHALATION DAILY 01/25/14 Citalopram [Celexa] 10 mg PO DAILY 06/11/17 Fluticasone 0.05% [Flonase Nasal [place]] 1 spray NASAL DAILY 06/11/17 Fluticasone/Salmeterol [Advair 250/50 Mcg Diskus] 1 puff INHALATION BID 06/11/17 Pantoprazole Sodium 40 mg PO DAILY 06/11/17 fenofibric acid (choline) 135 mg capsule,delayed release 135 mg PO DAILY 10/13/17 Amiodarone HCl 100 mg PO DAILY 11/05/19 Calcium Carbonate [Calcium] 600 mg PO DAILY 11/05/19 Montelukast [Singulair] 10 mg PO DAILY 11/05/19 Multivit-Min/FA/Lycopen/Lutein [Centrum Silver Men Tablet] 1 ea PO DAILY 11/05/19 Rifaximin [Xifaxan] 550 mg PO TID 11/05/19 Amiodarone HCl [Cordarone] 100 mg PO DAILY tab 11/06/19 Pravastatin [Pravachol] 80 mg PO QHS tab 11/06/19 Primary Care Physician: Yen Hamlin DO [Primary Care Provider] - Please follow up with your Primary Care Physician in: in 2 weeks Test Results: Test results from this visit will be discussed in further detail at your follow- up appointment, if applicable.
--- NOTE | 2019-11-07 13:44 | DS.PCM_ITS ---
Discharge Date and Diagnosis Date of Admission: 11/05/19 Date of Discharge: 11/06/19 - Primary Discharge Diagnosis #1 musculoskeletal chest pain #2 coronary artery disease #3 chronic obstructive pulmonary disease - Secondary Discharge Diagnosis Chronic Problems (Last Reviewed 07/27/19 @ 14:[address] 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 Patient has a past history of coronary artery disease. Work-up in the emergency room included an EKG which showed a normal sinus rhythm without evidence of ischemic changes, patient's troponin was unremarkable, and chest x-ray was normal. Patient was placed in observation status on PCU, cardiac enzymes were cycled and these remain normal. Patient underwent a nuclear stress test on 11/06/2019 which was negative for reversible ischemia. On 11/06/2019, patient was seen and examined: On examination he appeared in good health and spirits. Vital signs as documented. Skin warm and dry and without overt rashes. Neck without JVD. Lungs clear. Heart exam notable for regular rhythm, normal sounds and absence of murmurs, rubs or gallops. Abdomen unremarkable and without evidence of organomegaly, masses, or abdominal aortic enlargement. Extremities nonedematous. Neuro: Cranial nerves II through XII are grossly intact, no focal motor deficits were noted, sensation to light touch and pinprick intact. Psych: Patient is alert and oriented x3, he does not appear anxious or depressed On 11/06/2019, patient was seen and examined and discharged home in stable condition - Physical Exam Vitals/I&O's: Vital Signs Temp Pulse Resp BP Pulse Ox 97.9 F 75 16 99/68 92 11/06/19 12:00 11/06/19 12:00 11/06/19 12:00 11/06/19 12:00 11/06/19 12:00 Oxygen Delivery Method Room Air Weight: 76.204 kg Body Mass Index (BMI) 26.3 Intake and Output for Last 24 Hours 11/05/19 11/06/19 11/07/19 23:59 23:59 23:59 Intake Total 2079 Balance 2079 Discharge Activity: Return to Normal Activity Weight Bearing Status: Full weight bearing Home Medications: Medications to take at Discharge Albuterol IH (ProAir) [Proair Hfa] 1 puff INHALATION Q4H PRN PRN 01/25/14 Azelastine HCl [Astelin] 2 spray NASAL BID 01/25/14 Clopidogrel Bisulfate [Plavix] 75 mg PO DAILY 01/25/14 Tamsulosin HCl [Flomax] 0.4 mg PO DAILY 01/25/14 Temazepam [Restoril] 15 mg PO QHS PRN PRN 01/25/14 Tiotropium [place] [Spiriva 18 MCG] 1 puff INHALATION DAILY 01/25/14 Citalopram [Celexa] 10 mg PO DAILY 06/11/17 Fluticasone 0.05% [Flonase Nasal [place]] 1 spray NASAL DAILY 06/11/17 Fluticasone/Salmeterol [Advair 250/50 Mcg Diskus] 1 puff INHALATION BID 06/11/17 Pantoprazole Sodium 40 mg PO DAILY 06/11/17 fenofibric acid (choline) 135 mg capsule,delayed release 135 mg PO DAILY 10/13/17 Amiodarone HCl 100 mg PO DAILY 11/05/19 Calcium Carbonate [Calcium] 600 mg PO DAILY 11/05/19 Montelukast [Singulair] 10 mg PO DAILY 11/05/19 Multivit-Min/FA/Lycopen/Lutein [Centrum Silver Men Tablet] 1 ea PO DAILY 11/05/19 Rifaximin [Xifaxan] 550 mg PO TID 11/05/19 Amiodarone HCl [Cordarone] 100 mg PO DAILY tab 11/06/19 Pravastatin [Pravachol] 80 mg PO QHS tab 11/06/19 Primary Care Physician: Yakelin,Yen, DO [Primary Care Provider] - Please follow up with your Primary Care Physician in: in 2 weeks Disposition: Home Minutes spent on discharge:: 30 Patient Condition:: Stable Medical Necessity - Tobacco Use Smoking Status: Former smoker Tobacco Use: Cigarettes Meaningful Use Info Meaningful Use Diagnoses (Choose all that apply): None applicable Code Visit OBSV E&M: 72335 Observation care discharge
== END 2019-11-06 13:47 | disposition home or self-care (01) ==
LOC: ED 14:42 → PCU 14:48
PROVIDERS: Admitting Provider Family Medicine; Emergency Provider Emergency Medicine; PCP Internal Medicine; Visit Provider Internal Medicine
DX: R07.89 Other chest pain (principal); K21.9 Gastro-esophageal reflux disease without esophagitis; I25.10 Atherosclerotic heart disease of native coronary artery without angina pectoris; E78.5 Hyperlipidemia, unspecified; K58.9 Irritable bowel syndrome, unspecified; F41.9 Anxiety disorder, unspecified; F32.9 Major depressive disorder, single episode, unspecified; N40.0 Benign prostatic hyperplasia without lower urinary tract symptoms; J44.9 Chronic obstructive pulmonary disease, unspecified; N18.3 Chronic kidney disease, stage 3 (moderate); I12.9 Hypertensive chronic kidney disease with stage 1 through stage 4 chronic kidney disease, or unspecified chronic kidney disease; I49.3 Ventricular premature depolarization; R94.31 Abnormal electrocardiogram [ECG] [EKG]; Z95.5 Presence of coronary angioplasty implant and graft; Z79.899 Other long term (current) drug therapy; Z79.02 Long term (current) use of antithrombotics/antiplatelets; Z79.51 Long term (current) use of inhaled steroids; Z87.891 Personal history of nicotine dependence
CPT/HCPCS: 36415; 71045; 78452; 80048; 80061; 83735; 84484; 85025; 85610; 85730; 93005; 93017; 96360; 96361; 99218; 99285; A9500; J7030; A4216; G0378

== ENCOUNTER → 2020-06-12 09:58 | Outpatient (CLI) | payer MEDICARE, OTHER, SELFPAY ==
[2020-06-08 15:29] VITALS: BMI 27.6
== END ==
PROVIDERS: PCP Internal Medicine; Referring Provider Internal Medicine Cardiovascular Disease; Visit Provider Internal Medicine Cardiovascular Disease
DX: I49.3 Ventricular premature depolarization (principal); Z95.5 Presence of coronary angioplasty implant and graft
CPT/HCPCS: 93225; 93226

== ENCOUNTER → 2020-07-05 15:13 | Outpatient (CLI) | payer MEDICARE, OTHER, SELFPAY ==
[2020-06-08 15:29] VITALS: BMI 27.6
[2020-07-05 18:14] LABS: BNP,B-Type NATRIURETIC PEPTIDE 46.3 pg/mL (0-100)
== END ==
PROVIDERS: PCP Internal Medicine; Referring Provider Internal Medicine Cardiovascular Disease; Visit Provider Internal Medicine Cardiovascular Disease
DX: R06.00 Dyspnea, unspecified (principal)
CPT/HCPCS: 36415; 83880

== ENCOUNTER → 2021-07-19 07:57 | Outpatient (CLI) | payer MEDICARE, OTHER, SELFPAY ==
--- NOTE | 2021-07-19 08:00 | VDLE_ITS ---
Reason For Study: pain RIGHT CFV is compressible, spontaneous, phasic, competent and demonstrates normal augmentation. FV is compressible, spontaneous, phasic, competent and demonstrates normal augmentation. POP V is compressible, spontaneous, phasic, competent and demonstrates normal augmentation. T/P Trunk is compressible. PTV is compressible. RT PerV is compressible. SFJ is competent and measures .58 cm. GSV proximal thigh measures .29 x .32 cm. GSV at knee measures .23 x .26 cm. GSV is competent throughout. SSV proximal calf is competent and measures .21 x .19 cm. Procedure This is a venous duplex using B-mode, color flow and spectral Doppler. Exam performed in department. The exam was abbreviated due to the COVID 19 protocol. The exam was diagnostic. A preliminary report was called and/or faxed to Dr. Hamlin. VL/Venous Duplex US, Unilateral Interpretation Summary Deep veins of the right lower extremity are patent and compressible segmentally . There is no evidence of right lower extremity deep vein thrombosis. Valvular competence benitez ears intact within the proximal deep venous system on the right . The right great saphenous vein a ppears patent and compressible segmentally. The right sapheno-femoral junction is competent . The right great saphenous vein appears segmentally competent. The right small saphenous vein is patent and competent. Ordering Physician: Yen Hamlin Performed By: Lorenzo Rice RVT
== END ==
PROVIDERS: PCP Internal Medicine; Referring Provider Internal Medicine; Visit Provider Internal Medicine
DX: M79.661 Pain in right lower leg (principal)
CPT/HCPCS: 93971

== ENCOUNTER 2021-09-06 08:38 | Inpatient (IN) | payer MEDICARE, OTHER, SELFPAY ==
[2021-09-06] VITALS (11 sets, daily range): BP systolic 104–160; BP diastolic 63–86; PULSE 70–84; RESP 16–26; TEMP 36.6–37.7; O2SAT 72–98; BMI 26.7; BMI 25.9
--- NOTE | 2021-09-06 09:10 | EKG12_ITS ---
Test Reason : SOB Blood Pressure : / mmHG Vent. Rate : 077 BPM Atrial Rate : 077 BPM P-R Int : 162 ms QRS Dur : 074 ms QT Int : 390 ms P-R-T Axes : 067 000 063 degrees QTc Int : 441 ms Normal sinus rhythm Normal ECG Confirmed by ALONA WALKER, LETY ([id number]), rewrite editor SLIM PERKINS ([id number]) on 09/12/2021 12:08:44 PM Referred By: MR Confirmed By:LETY SAGE MD
--- NOTE | 2021-09-06 09:11 | ED.VIS.DYS ---
HPI History of Present Illness Chief Complaint: Shortness of Breath Narrative Narrative: Patient presenting for evaluation secondary to generalized illness and shortness of breath as well as low pulse oximetry. Patient does have an underlying history of COPD is not typically on supplemental oxygen. Patient reports that since the weekend he has been feeling generally ill, it started with headache and myalgias and has progressed to a cough with worsening shortness of breath. Patient reports that he had an outpatient negative coronavirus test, as well as a negative influenza test. Patient denies that he is having chest pain or peripheral edema associated with this. He denies that he is had significant wheezing. 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 Home Medications albuterol sulfate 1 puff INHALATION Q4H PRN PRN 01/25/14 [History Last Taken 3 Months Ago ~08/05/19] tiotropium bromide 1 puff INHALATION DAILY 01/25/14 [History Last Taken 09/05/21] citalopram 10 mg PO DAILY 06/11/17 [History Last Taken 09/05/21] fluticasone propion-salmeterol 1 puff INHALATION BID 06/11/17 [History Last Taken 09/05/21] pantoprazole 40 mg PO DAILY 06/11/17 [History Last Taken 09/05/21] calcium carbonate 600 mg PO DAILY 11/05/19 [History Last Taken 09/05/21] montelukast 10 mg PO DAILY 11/05/19 [History Last Taken 09/05/21] nrogkggt-rkc-DW-lycopen-lutein 1 ea PO DAILY 11/05/19 [History Last Taken 09/05/21] pravastatin 80 mg PO QHS tab 11/06/19 [Rx Last Taken 09/05/21] azelastine 137 mcg (0.1 %) nasal spray aerosol 2 spray INTRANASAL BID PRN 11/11/19 [History Last Taken 09/05/21] aspirin 81 mg tablet,delayed release 81 mg PO .M/W/F tab 06/08/20 [History Last Taken 09/05/21] amiodarone 200 mg tablet 100 mg PO DAILY #45 tab 03/09/21 [Rx Last Taken 09/05/21] cholecalciferol (vitamin D3) 25 mcg (1,000 unit) tablet 500 unit PO DAILY tab 03/16/21 [History Last Taken 09/05/21] fenofibrate nanocrystallized 145 mg tablet 145 mg PO DAILY tab 03/16/21 [History Last Taken 09/05/21] fluticasone propionate 50 mcg/actuation nasal spray,suspension 1 spray NASAL DAILY PRN 03/16/21 [History Last Taken 09/05/21] tamsulosin 0.4 mg capsule 0.4 mg PO DAILY cap 03/16/21 [History Last Taken 09/05/21] temazepam 15 mg capsule 15 mg PO QHS cap 03/16/21 [History Last Taken 09/05/21] pentoxifylline [Trental] 400 mg PO DAILY 09/06/21 [History Last Taken 09/05/21] roflumilast [Daliresp] 500 mcg PO DAILY 09/06/21 [History Last Taken 09/05/21] Allergy/AdvReac Type Severity Reaction Status Date / Time No Known Allergies Allergy Verified 03/16/21 14:42 Family History Unknown No problems noted. Daughter Hypertension Surgical History H/O right coronary artery stent placement (09/07/09) History of left heart catheterization (02/17/19) History of right knee surgery Social History Smoking Status: Former smoker how long ago did patient quit smokin years ago alcohol intake: current alcohol intake frequency: a few times a week Alcohol type: beer substance use type: does not use caffeine: Yes Type: coffee Number of servings: 20 ROS ROS ED Constitutional Constitutional ED: Reports other Details: Generalized weakness ENT ENT ED: Denies rhinorrhea Cardiovascular Cardiovascular: Denies chest pain Respiratory/Chest Respiratory/Chest: Reports cough and dyspnea Gastrointestinal Gastrointestinal: Denies abdominal pain, diarrhea, nausea or vomiting Genitourinary Genitourinary ED: Denies dysuria or hematuria Musculoskeletal Musculoskeletal: Denies back pain Integumentary Denies rash Neurologic Neurologic: Denies paresthesias or weakness Psychiatric Psychiatric: Denies depression Endocrine Endocrinology: Denies fatigue Allergic/Immunologic Allergic/Immunologic ED: Denies urticaria EXAM Physical Exam Const Vital Signs: 09/06/21 08:42 09/06/21 08:45 09/06/21 09:21 Temperature 99.8 F H 99.8 F H 99.2 F H Temperature Source Oral Oral Oral Pulse Rate 84 84 78 Respiratory Rate 26 H 26 H 21 H Respiratory Effort Short of Breath Respiratory Depth Deep Respiratory Pattern Hyperpnea Blood Pressure 160/75 H 160/75 H 136/70 H Blood Pressure Mean 103 103 92 Pulse Ox 72 72 96 Oxygen Delivery Method Room Air Nasal Cannula Nasal Cannula Oxygen Flow Rate (L/min) 4 3 09/06/21 09:49 09/06/21 10:42 Temperature 98.7 F 98.2 F Temperature Source Oral Oral Pulse Rate 75 79 Respiratory Rate 17 19 H Respiratory Effort Respiratory Depth Respiratory Pattern Blood Pressure 109/67 104/86 H Blood Pressure Mean 81 92 Pulse Ox 96 96 Oxygen Delivery Method Nasal Cannula Oxygen Flow Rate (L/min) 3 2 Positive well nourished and well developed Constitutional Narrative: Patient resting comfortably on nasal cannula. General Appearance ED: well developed and NAD HEENT Reports dry mucous membranes Negative for trauma or tenderness Mouth ED: Yes dry mucous membranes Mouth: dry mucous membranes Eyes EOMs intact bilaterally Neck no lymphadenopathy, supple and no JVD Chest Wall inspection of chest normal Resp normal respiratory effort Resp Narrative: Somewhat decreased air movement, but not significant wheezing rales or rhonchi noted. Cardio regular rate, regular rhythm, no murmurs and peripheral pulses 2+ throughout GI normal to inspection, nondistended, normoactive bowel sounds, non-tender and no masses Palpation: soft Back/Spine normal to inspection Extremity normal to inspection Extremity Narrative: Trace peripheral edema General Extremety ED: Negative for tenderness Neuro oriented x3 and no sensory deficits noted Sensorium / Orientation: alert Motor Exam: strength 5/5 throughout Psych mental status grossly normal Skin no rashes or lesions noted MDM MDM MDM Narrative Medical decision making narrative: Patient presented secondary to worsening shortness of breath and hypoxia. We did do a repeat coronavirus test on the patient which was noted to be negative. CBC does not demonstrate leukocytosis, chemistry shows normal renal function normal electrolytes. BNP modestly elevated at 74 lactic acid was 1.6. Chest x-ray shows increased interstitial markings potentially consistent with congestive changes versus infiltrative change. Patient had a infectious prodrome to all of this, so we will treat the patient as if this is an atypical pneumonia. Patient was given Rocephin and azithromycin. Patient will be admitted to the hospitalist. Lab Data Labs: Laboratory Results - last 24 hr 09/06/21 09/06/21 09/06/21 08:45 08:45 08:45 WBC 10.3 RBC 4.96 Hgb 14.6 Hct 44.4 MCV 89.5 MCH 29.4 MCHC 32.9 RDW Std Deviation 46.4 H RDW Coeff of Demar 14.2 Plt Count 336 MPV 9.8 Immature Gran % (Auto) 0.400 Neut % (Auto) 73.3 H Lymph % (Auto) 7.5 L [place] % (Auto) 13.0 H Eos % (Auto) 5.1 H Baso % (Auto) 0.7 Absolute Neuts (auto) 7.6 Absolute Lymphs (auto) 0.77 L Nucleated RBC % 0 PT 13.6 INR 1.1 APTT 37.8 H Sodium 138 Potassium 3.8 Chloride 105 Carbon Dioxide 27.0 Anion Gap 6 BUN 15 Creatinine 1.17 Estim Creat Clear Calc 51.79 Est GFR (MDRD) Af Amer 78 Est GFR (MDRD) Non-Af 65 BUN/Creatinine Ratio 12.8 Glucose 91 Lactic Acid Calcium 9.3 Total Bilirubin 0.60 AST 22 ALT 30 Alkaline Phosphatase 45 B-Natriuretic Peptide Total Protein 8.1 Albumin 3.5 Globulin 4.6 H Albumin/Globulin Ratio 0.8 L 09/06/21 09/06/21 08:45 08:45 WBC RBC Hgb Hct MCV MCH MCHC RDW Std Deviation RDW Coeff of Demar Plt Count MPV Immature Gran % (Auto) Neut % (Auto) Lymph % (Auto) [place] % (Auto) Eos % (Auto) Baso % (Auto) Absolute Neuts (auto) Absolute Lymphs (auto) Nucleated RBC % PT INR APTT Sodium Potassium Chloride Carbon Dioxide Anion Gap BUN Creatinine Estim Creat Clear Calc Est GFR (MDRD) Af Amer Est GFR (MDRD) Non-Af BUN/Creatinine Ratio Glucose Lactic Acid 1.6 Calcium Total Bilirubin AST ALT Alkaline Phosphatase B-Natriuretic Peptide 74.2 Total Protein Albumin Globulin Albumin/Globulin Ratio Radiography Diagnostic Testing: Clinical Impression(s) from Imaging Studies Chest X-Ray 09/06/21 09:28 IMPRESSION: Prominence of the bronchovascular and interstitial lung markings, would recommend clinical correlation for mild congestive changes versus Covid 19 disease.. Electronically Signed: Patrick Edwards MD at 10:15 EST Tel , Service support , Discharge Plan Dx/Rx/DC Orders Clinical Impression: Acute respiratory failure with hypoxia, Pneumonia Disposition Disposition: Acute Care Hospital [facility] Discharge Date/Time: 09/06/21 12:31
--- NOTE | 2021-09-06 09:28 | RAD_ITS ---
INDICATION: SOB EXAMINATION/TECHNIQUE: X-RAY - XR Chest 1 View COMPARISON: 11/05/2019 FINDINGS: LINES/DEVICES: None. LUNGS: Prominence of the bronchovascular interstitial lung markings visualized bilaterally, peribronchial cuffing bilateral hilar prominence is seen. Linear subsegmental atelectatic streaks visualized in bilateral lower lung dom[place] demonstrating slight prominence in comparison to the prior study. No evidence of pneumothorax or pleural effusion is seen. MEDIASTINUM AND CARDIOVASCULAR STRUCTURES: Mild prominence of the cardiovascular silhouette is seen no evidence of cardiomegaly. BONES AND SOFT TISSUES: Mild degenerative bone changes are seen. RAD/Chest 1 View (Portable) IMPRESSION: Prominence of the bronchovascular and interstitial lung markings, would recommend clinical correlation for mild congestive changes versus Covid 19 disease.. Electronically Signed: Patrick Edwards MD at 10:15 EST Tel , Service support ,
[2021-09-06 09:30] LABS: Absolute Lymphocyte Count 0.77 X10^3/uL (0.83-4.51); Absolute Neutrophil Count 7.6 X10^3/uL (2.0-7.7); Basophil# 0.07 X10^3/uL; Basophil% 0.7 % (0-1); Eosinophil# 0.53 X10^3/uL; Eosinophils% 5.1 % (0-5); Hematocrit 44.4 % (40-54); Hemoglobin 14.6 g/dL (13.0-16.5); Lymphocyte # 0.77 X10^3/ul (0.83-4.51); Lymphocyte % 7.5 % (19-41); Mean Corp Hgb Conc 32.9 g/dL (32-36); Mean Corpuscular Hgb 29.4 pg (27.0-32.0); Mean Corpuscular Volume 89.5 fL (80-94); Mean Platelet Vol. 9.8 fl (6.2-12.0); Monocyte# 1.34 X10^3/uL; NRBC Flagged by Analyzer 0 % (0-5); Neutrophil # 7.56 X10^3/uL (2.7-7.7); Neutrophil % 73.3 % (47-70); Platelet Count 336 K/mm3 (150-450); RBC Distribution Width CV 14.2 % (11.6-14.6); RBC Distribution Width SD 46.4 fl (35.1-43.9); Red Blood Count 4.96 M/mm3 (4.6-6.2); White Blood Count 10.3 K/mm3 (4.4-11.0)
[2021-09-06 09:41] LABS: International Normalized Ratio 1.1; Prothrombin Time (Protime)PT. 13.6 SECONDS (11.7-14.9)
[2021-09-06 09:42] LABS: Partial Thromboplast Time 37.8 Seconds (24.1-36.2)
[2021-09-06 09:45] LABS: ALB/GLOB Ratio 0.8 RATIO (0.9-2.4); AST(SGOT) 22 U/L (15-37); Alanine Aminotransfer ALT/SGPT 30 U/L (16-61); Albumin, Serum 3.5 g/dL (3.2-5.0); Alkaline Phosphatase 45 U/L (45-117); Anion Gap 6 (5-15); BUN 15 mg/dL (7-18); BUN/Creat Ratio 12.8 RATIO (10-20); Calcium,Total 9.3 mg/dL (8.5-10.1); Chloride 105 mmol/L (98-107); Creatinine, Serum 1.17 mg/dL (0.70-1.30); EST Glomerular Filtration Rate 65 mL/min (>60); Est Glom Filt Rate - Afr Amer 78 mL/min (>60); Estimated Creatinine Clearance 51.79 ml/min; Globulin 4.6 g/dL (2.2-4.2); Glucose 91 mg/dL (74-106); Lactic Acid 1.6 mmol/L (0.4-1.9); Potassium 3.8 mmol/L (3.5-5.1); Protein, Total 8.1 g/dL (6.4-8.2); Sodium Level 138 mmol/L (136-145)
[2021-09-06] MEDS: Ceftriaxone 1 GM/50 ML BAG IV (11:20)
[2021-09-06] MEDS: predniSONE 20 MG Tablet 60 MG PO (11:20)
--- NOTE | 2021-09-06 11:41 | HP.PCM_ITS ---
Documented by User: JILL Jeong 09/06/21 12:06 HPI - General General Date of Admission: 09/06/21 Date of Service: 09/06/21 Chief Complaint: Shortness of breath HPI Narrative SHAY MUSTAFA, is a 76 M who presents with complaints of increasing shortness of breath over the past 2 to 3 days. Patient states that the shortness of breath initially started with exertion however he is continuously short of breath even at rest. Patient was hypoxic upon presentation to the ER and is currently on 2 L nasal cannula oxygen. Patient states he has a history of COPD but does not currently wear oxygen at home. Patient rapid antigen Covid test is negative. Patient has a negative PCR and negative flu a and B from 2 days ago. 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 Home Medications albuterol sulfate 1 puff INHALATION Q4H PRN PRN 01/25/14 [History Last Taken 3 Months Ago ~08/05/19] tiotropium bromide 1 puff INHALATION DAILY 01/25/14 [History Last Taken 09/05/21] citalopram 10 mg PO DAILY 06/11/17 [History Last Taken 09/05/21] fluticasone propion-salmeterol 1 puff INHALATION BID 06/11/17 [History Last Taken 09/05/21] pantoprazole 40 mg PO DAILY 06/11/17 [History Last Taken 09/05/21] calcium carbonate 600 mg PO DAILY 11/05/19 [History Last Taken 09/05/21] montelukast 10 mg PO DAILY 11/05/19 [History Last Taken 09/05/21] qyduaeai-vpc-RW-lycopen-lutein 1 ea PO DAILY 11/05/19 [History Last Taken 09/05/21] pravastatin 80 mg PO QHS tab 11/06/19 [Rx Last Taken 09/05/21] azelastine 137 mcg (0.1 %) nasal spray aerosol 2 spray INTRANASAL BID PRN 11/11/19 [History Last Taken 09/05/21] aspirin 81 mg tablet,delayed release 81 mg PO .M/W/F tab 06/08/20 [History Last Taken 09/05/21] amiodarone 200 mg tablet 100 mg PO DAILY #45 tab 03/09/21 [Rx Last Taken 09/05/21] cholecalciferol (vitamin D3) 25 mcg (1,000 unit) tablet 500 unit PO DAILY tab 03/16/21 [History Last Taken 09/05/21] fenofibrate nanocrystallized 145 mg tablet 145 mg PO DAILY tab 03/16/21 [History Last Taken 09/05/21] fluticasone propionate 50 mcg/actuation nasal spray,suspension 1 spray NASAL D AILY PRN 03/16/21 [History Last Taken 09/05/21] tamsulosin 0.4 mg capsule 0.4 mg PO DAILY cap 03/16/21 [History Last Taken 09/05/21] temazepam 15 mg capsule 15 mg PO QHS cap 03/16/21 [History Last Taken 09/05/21] pentoxifylline [Trental] 400 mg PO DAILY 09/06/21 [History Last Taken 09/05/21] roflumilast [Daliresp] 500 mcg PO DAILY 09/06/21 [History Last Taken 09/05/21] Allergy/AdvReac Type Severity Reaction Status Date / Time No Known Allergies Allergy Verified 03/16/21 14:42 Family History Unknown No problems noted. Daughter Hypertension Surgical History H/O right coronary artery stent placement (09/07/09) History of left heart catheterization (02/17/19) History of right knee surgery Social History Smoking Status: Former smoker how long ago did patient quit smokin years ago alcohol intake: current alcohol intake frequency: a few times a week Alcohol type: beer substance use type: does not use caffeine: Yes Type: coffee Number of servings: 20 ROS Constitutional Constitutional: Reports chills; Denies anorexia, fatigue, fever(s) or weakness Cardiovascular Cardiovascular: Denies chest pain, edema, palpitations or syncope Respiratory/Chest Respiratory/Chest: Reports shortness of breath at rest, shortness of breath with exertion and wheezing; Denies cough Gastrointestinal Gastrointestinal: Denies abdominal pain, constipation, diarrhea, nausea or vomiting Genitourinary Genitourinary: Denies dysuria Musculoskeletal Musculoskeletal: Denies back pain, extremity pain, joint pain or joint stiffness Integumentary Integumentary: Denies dry skin Neurologic Neurologic: Denies abnormal gait, abnormal speech, confusion, dizziness or focal weakness Psychiatric Psychiatric: Denies anxiety or depression Endocrine Endocrinology: Denies change in body appearance Hematologic/Lymphatic Hematologic/Lymphatic: Denies anemia Vital Signs Vital Signs Vital Signs: 09/06/21 08:42 09/06/21 08:45 09/06/21 09:21 Temperature 99.8 F H 99.8 F H 99.2 F H Temperature Source Oral Oral Oral Pulse Rate 84 84 78 Respiratory Rate 26 H 26 H 21 H Respiratory Effort Short of Breath Respiratory Depth Deep Respiratory Pattern Hyperpnea Blood Pressure 160/75 H 160/75 H 136/70 H Blood Pressure Mean 103 103 92 Pulse Ox 72 72 96 Oxygen Delivery Method Room Air Nasal Cannula Nasal Cannula Oxygen Flow Rate (L/min) 4 3 09/06/21 09:49 09/06/21 10:42 Temperature 98.7 F 98.2 F Temperature Source Oral Oral Pulse Rate 75 79 Respiratory Rate 17 19 H Respiratory Effort Respiratory Depth Respiratory Pattern Blood Pressure 109/67 104/86 H Blood Pressure Mean 81 92 Pulse Ox 96 96 Oxygen Delivery Method Nasal Cannula Oxygen Flow Rate (L/min) 3 2 Weight Weight: 170 lb 10.205 oz Body Mass Index (BMI) 26.7 Physical Exam Const alert, oriented x3 and no apparent distress General Appearance: cooperative HEENT normocephalic and head/scalp atraumatic Eyes conjunctivae normal and no scleral icterus Neck supple General: trachea midline Resp normal respiratory effort Auscultation: wheezes expiratory wheezes and throughout Cardio regular rate, regular rhythm, S1 normal heart sound and S2 normal heart sound GI normal to inspection, nondistended, normoactive bowel sounds, soft to palpation and non-tender Extremity normal capillary refill and no clubbing, cyanosis or edema General Extremity: no tenderness to palpation of joints or extremities Skin General Skin Exam: no breakdown and turgor normal Lesions: no lesions Rashes: no rashes Neuro oriented x3, moves all extremities, no focal motor deficits and no sensory deficits noted Psych affect normal Results Lab / Micro Data Result Diagrams: 09/06/21 08:45 09/06/21 08:45 Labs: Laboratory Results - last 24 hr 09/06/21 08:45: WBC 10.3, RBC 4.96, Hgb 14.6, Hct 44.4, MCV 89.5, MCH 29.4, MCHC 32.9, RDW Std Deviation 46.4 H, RDW Coeff of Demar 14.2, Plt Count 336, MPV 9.8, Immature Gran % (Auto) 0.400, Neut % (Auto) 73.3 H, Lymph % (Auto) 7.5 L, [place] % (Auto) 13.0 H, Eos % (Auto) 5.1 H, Baso % (Auto) 0.7, Absolute Neuts (auto) 7.6, Absolute Lymphs (auto) 0.77 L, Nucleated RBC % 0 09/06/21 08:45: PT 13.6, INR 1.1, APTT 37.8 H 09/06/21 08:45: Sodium 138, Potassium 3.8, Chloride 105, Carbon Dioxide 27.0, Anion Gap 6, BUN 15, Creatinine 1.17, Estim Creat Clear Calc 51.79, Est GFR (MDRD) Af Amer 78, Est GFR (MDRD) Non-Af 65, BUN/Creatinine Ratio 12.8, Glucose 91, Calcium 9.3, Total Bilirubin 0.60, AST 22, ALT 30, Alkaline Phosphatase 45, Total Protein 8.1, Albumin 3.5, Globulin 4.6 H, Albumin/Globulin Ratio 0.8 L 09/06/21 08:45: Lactic Acid 1.6 Micro: Microbiology 09/06/21 09:25 Nasal Secretion SARS-CoV-2 Antigen (Rapid) - Final Radiology Impression Chest X-Ray 09/06/21 09:28 IMPRESSION: Prominence of the bronchovascular and interstitial lung markings, would recommend clinical correlation for mild congestive changes versus Covid 19 disease.. Electronically Signed: Patrick Edwards MD at 10:15 EST Tel , Service support , Assessment & Plan Assessment/Plan (1) Pneumonia: QUALIFIERS: Laterality: bilateral Lung location: lower lobe of lung Pneumonia type: due to unspecified organism Qualified Code(s): J18.9 - Pneumonia, unspecified organism (2) Acute respiratory failure with hypoxia: PLAN: 1. Acute hypoxic respiratory failure secondary to pneumonia -Admit to [facility] -Patient given azithromycin and Rocephin in ER, Levaquin ordered -Scheduled DuoNebs along with as needed albuterol nebulizer treatments ordered -IV steroids and p.o. Mucinex ordered -Encourage incentive spirometry -CBC BMP daily, CBC and BMP completed in ER unremarkable Patient requested that his home medications for symptomatic PVCs, hyperlipidemia, COPD be held during hospital admission secondary to insurance not covering p.o. medications. DVT prophylaxis-subcu Lovenox This patient was seen by Maria D Sims NP-C under the supervision of Dr. Taveras. Documented by User: Dr. Scott Taveras, 09/06/21 20:23 HPI - General General Date of Admission: 09/06/21 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 Home Medications albuterol sulfate 1 puff INHALATION Q4H PRN PRN 01/25/14 [History Last Taken 3 Months Ago ~08/05/19] tiotropium bromide 1 puff INHALATION DAILY 01/25/14 [History Last Taken 09/05/21] citalopram 10 mg PO DAILY 06/11/17 [History Last Taken 09/05/21] fluticasone propion-salmeterol 1 puff INHALATION BID 06/11/17 [History Last Taken 09/05/21] pantoprazole 40 mg PO DAILY 06/11/17 [History Last Taken 09/05/21] calcium carbonate 600 mg PO DAILY 11/05/19 [History Last Taken 09/05/21] montelukast 10 mg PO DAILY 11/05/19 [History Last Taken 09/05/21] yqkswowc-wes-YR-lycopen-lutein 1 ea PO DAILY 11/05/19 [History Last Taken 09/05/21] pravastatin 80 mg PO QHS tab 11/06/19 [Rx Last Taken 09/05/21] azelastine 137 mcg (0.1 %) nasal spray aerosol 2 spray INTRANASAL BID PRN 11/11/19 [History Last Taken 09/05/21] aspirin 81 mg tablet,delayed release 81 mg PO .M/W/F tab 06/08/20 [History Last Taken 09/05/21] amiodarone 200 mg tablet 100 mg PO DAILY #45 tab 03/09/21 [Rx Last Taken 09/05/21] cholecalciferol (vitamin D3) 25 mcg (1,000 unit) tablet 500 unit PO DAILY tab 03/16/21 [History Last Taken 09/05/21] fenofibrate nanocrystallized 145 mg tablet 145 mg PO DAILY tab 03/16/21 [History Last Taken 09/05/21] fluticasone propionate 50 mcg/actuation nasal spray,suspension 1 spray NASAL DAILY PRN 03/16/21 [History Last Taken 09/05/21] tamsulosin 0.4 mg capsule 0.4 mg PO DAILY cap 03/16/21 [History Last Taken 09/05/21] temazepam 15 mg capsule 15 mg PO QHS cap 03/16/21 [History Last Taken 09/05/21] pentoxifylline [Trental] 400 mg PO DAILY 09/06/21 [History Last Taken 09/05/21] roflumilast [Daliresp] 500 mcg PO DAILY 09/06/21 [History Last Taken 09/05/21] Allergy/AdvReac Type Severity Reaction Status Date / Time No Known Allergies Allergy Verified 03/16/21 14:42 Family History Unknown No problems noted. Daughter Hypertension Surgical History H/O right coronary artery stent placement (09/07/09) History of left heart catheterization (02/17/19) History of right knee surgery Social History Smoking Status: Former smoker how long ago did patient quit smokin years ago alcohol intake: current alcohol intake frequency: a few times a week Alcohol type: beer substance use type: does not use caffeine: Yes Type: coffee Number of servings: 20 Results Lab / Micro Data Result Diagrams: 09/06/21 08:45 09/06/21 08:45 Charges/Coding Addendum Addendum: Patient was seen and examined today independently of Miley Sims, he came to the ER today with complaints of upper respiratory symptoms consisting of increased shortness of breath and periods of chills which started this past weekend. Patient was tested for Covid as an outpatient and was negative, he was also tested for influenza a and B and he was also negative. Patient was sent to the emergency room today for evaluation after he went to his PCPs office and was found to be hypoxic. On examination he appeared in good health and spirits. Vital signs as documented. Skin warm and dry and without overt rashes. Neck without JVD, neck was supple, trachea midline, thyroid was normal. Lungs-breath sounds are distant bilaterally . Heart exam notable for regular rhythm, normal sounds and absence of murmurs, rubs or gallops. Abdomen unremarkable and without evidence of organomegaly, masses, or abdominal aortic enlargement. Bowel sounds are present, abdomen is not distended. Extremities nonedematous, no cyanosis was noted, no clubbing was noted. Neuro: Cranial nerves II through XII are grossly intact, no focal motor deficits were noted, sensation to light touch and pinprick intact, motor exam 5/5 throughout. Psych: Patient is alert and oriented x3, he does not appear anxious or depressed, he does not appear agitated. Patient's chest x-ray showed prominence of the bronchovesicular and interstitial lung markings, patient's white blood cell count was 10.3, and he required oxygen at 2 L/min via nasal cannula to maintain his pulse ox above 90%. Patient will be admitted for community-acquired pneumonia with hypoxic respiratory failure. Patient has a confirmed diagnosis of COPD and sees a sr. strategic sourcing manager as an out patient. Patient will be treated with IV antibiotics as well as IV corticosteroids. I have reviewed Miley Sims's history and physical including her medical assessment and plan of care and endorse it. Visit Charges Inpatient E&M: 11015 Init Hosp L3
[2021-09-06 11:46] LABS: BNP,B-Type NATRIURETIC PEPTIDE 74.2 pg/mL (0-100)
[2021-09-06] MEDS: Ipratropium/Albuterol Sulfate 3 ML AMPUL.NEB INHALATION ×2 (16:03→20:01)
--- NOTE | 2021-09-06 19:59 | PCS.PANDOC ---
PANDEMIC DOCUMENTATION INITIATED: Date: 04/23/2021 Time: 190
[2021-09-06] MEDS: 0.9% Saline Lock 10 ML Syringe IV (22:05)
[2021-09-06] MEDS: guaiFENesin 1,200 MG Tablet 1200 MG PO (22:05)
[2021-09-06 23:31] LABS: Mucous, Urine 0 SEEN /hpf (<or=2+); Red Blood Cells-Urine 0 SEEN /hpf (0-5); Squamous Epithelial Cells - UA 0 SEEN /hpf (0-5)
[2021-09-06 23:58] LABS: Color, Urine Yellow (Yellow); Glucose, Dipstick Normal (Normal); Ketone-Dipstick Negative (Negative); Leukocyte Esterase-Dipstick 100 /ul (Negative); Nitrite-Dipstick Negative (Negative); Occult Blood-Urine Negative /ul (Negative); Protein-Dipstick Negative (Negative); Urine Bilirubin Dipstick Negative (Negative); Urine Clarity Clear (Clear); Urine Urobilinogen Normal (Normal)
[2021-09-07 00:54] LABS: Bacteria 1+ /hpf (None Seen); White Blood Cells 0-5 SEEN /hpf (0-5)
[2021-09-07 02:32] VITALS: BP 120/67; PULSE 71; RESP 16; TEMP 36.7; O2SAT 93
[2021-09-07] MEDS: 0.9% Saline Lock 10 ML Syringe IV (05:28)
[2021-09-07 07:22] LABS: Absolute Lymphocyte Count 0.44 X10^3/uL (0.83-4.51); Absolute Neutrophil Count 6.9 X10^3/uL (2.0-7.7); Basophil# 0.01 X10^3/uL; Basophil% 0.1 % (0-1); Differential Indicated SCAN CRITERIA MET; Hematocrit 39.9 % (40-54); Hemoglobin 13.1 g/dL (13.0-16.5); Lymphocyte # 0.44 X10^3/ul (0.83-4.51); Lymphocyte % 5.7 % (19-41); Mean Corp Hgb Conc 32.8 g/dL (32-36); Mean Corpuscular Volume 88.3 fL (80-94); Mean Platelet Vol. 9.7 fl (6.2-12.0); Monocyte# 0.29 X10^3/uL; Monocyte% 3.8 % (0-10); NRBC Flagged by Analyzer 0 % (0-5); Neutrophil # 6.88 X10^3/uL (2.7-7.7); Neutrophil % 89.9 % (47-70); POSITIVE DIFFERENTIAL YES; Platelet Count 340 K/mm3 (150-450); RBC Distribution Width SD 45.1 fl (35.1-43.9); Red Blood Count 4.52 M/mm3 (4.6-6.2); White Blood Count 7.7 K/mm3 (4.4-11.0)
[2021-09-07] MEDS: levoFLOXacin IV 750 MG/150 ML BAG 100 MG IV (07:47)
[2021-09-07] MEDS: Ipratropium/Albuterol Sulfate 3 ML AMPUL.NEB INHALATION (07:48)
[2021-09-07 07:50] VITALS: PULSE 63; RESP 16; O2SAT 94
[2021-09-07 07:50] LABS: Anion Gap 8 (5-15); BUN 14 mg/dL (7-18); BUN/Creat Ratio 15.5 RATIO (10-20); Chloride 108 mmol/L (98-107); EST Glomerular Filtration Rate 87 mL/min (>60); Est Glom Filt Rate - Afr Amer 106 mL/min (>60); Estimated Creatinine Clearance 67.32 ml/min; Glucose 154 mg/dL (74-106); Sodium Level 139 mmol/L (136-145)
[2021-09-07 08:03] VITALS: BP 136/76; PULSE 66; RESP 18; TEMP 36.8; O2SAT 95
[2021-09-07 09:59] VITALS: O2SAT 90; O2SAT 93
--- NOTE | 2021-09-07 10:19 | CASEMGMT ---
ROSY LONG COMPUTER FORENSICS INVESTIGATOR CM to room to meet with patient for initial transition planning/care coordination assessment. ROSY LONG introduced self and role at [facility]. Pt voices understanding and consents to assessment at this time. Pt sitting up in bed in no distress at this time, face-timing w/his and daughter. Pt is A/O at this time and answers all questions appropriately. Care providers, pharmacy, and demographics verified/updated at this time. Noted pt not wanting to take any PO meds while in the hospital d/t concern they would not be covered. Pt states he has been billed, in the past, for self-administered medications. Educated pt, that he is IN-patient, and all meds would be covered under his IN-pt stay. Pt voices appreciation of this information and voices understanding. PCP: Dr Sesay Specialists:Dr Leslie--pulmonology, Dr Hoffman-cardiology, Dr Combs-podiatry, Dr Price-urology, Dr Andersen-ENT Preferred Pharmacy: [facility] for [facility] Insurance: [employer] PERDOMO Prescription Benefit: Yes--. Living Will/HPOA: Has both. is POA LNOK: Mari Living Arrangements: Lives w/ in one-story home w/basement. Laundry is in basement and pt states has some difficulty w/going back up the stairs. He has purchased a chair-lift for the basement for his , but it has not been installed yet. 3 steps to enter home. Pt is independent w/ADL's. and pt share home mgmt tasks. pt manages his own meds and appts. Transportation: Pt states drives self and states no transportation concerns at this time. also drives DME: States has the following DME: rails in shower. Lift chair for basement (not installed yet). Has available/but does not use: cane, shower chair, walker, scooter. Does not have home O2. Pt provided w/list of local DME companies if o2 is needed @ d/c. Pt chooses [employer], as his has O2 thru [employer]. Pt states no need for further DME at this time. HHC/SNF: No hx of either. No needs identified. Pt wishes to return home and states has no concerns with going home at time of discharge. Nursing to follow for home oxygen needs and any further discharge planning/needs. Pt voices no further concerns/needs at this time. Advised pt to ask for CM if any further questions/concerns/needs arise. Voices understanding. PLAN: Home. Nursing to follow for possible need of Home O2 @ dc. Green sheet placed on chart w/instructions for Home O2 set up, if needed. Genesis ALEXANDERN RN CM
--- NOTE | 2021-09-07 11:59 | PCM.DC.SUM ---
Documented by User: JILL Jeong 09/07/21 12:06 Providers Date of Admission: 09/06/21 Primary Care Physician: Dr. Yen Hamlin DO Reason For Visit: PNA Diagnosis Discharge Diagnosis (1) Pneumonia: Status: Acute Code(s): J18.9 - Pneumonia, unspecified organism Qualifiers: Laterality: bilateral Lung location: lower lobe of lung Pneumonia type: due to unspecified organism Qualified Code(s): J18.9 - Pneumonia, unspecified organism (2) Acute respiratory failure with hypoxia: Status: Acute Code(s): J96.01 - Acute respiratory failure with hypoxia Medications at Discharge Home Medications albuterol sulfate 1 puff INHALATION Q4H PRN PRN 01/25/14 tiotropium bromide 1 puff INHALATION DAILY 01/25/14 citalopram 10 mg PO DAILY 06/11/17 fluticasone propion-salmeterol 1 puff INHALATION BID 06/11/17 pantoprazole 40 mg PO DAILY 06/11/17 calcium carbonate 600 mg PO DAILY 11/05/19 montelukast 10 mg PO DAILY 11/05/19 dypgukpb-hox-WC-lycopen-lutein 1 ea PO DAILY 11/05/19 pravastatin 80 mg PO QHS tab 11/06/19 azelastine 137 mcg (0.1 %) nasal spray aerosol 2 spray INTRANASAL BID PRN 11/11/19 aspirin 81 mg tablet,delayed release 81 mg PO .M/W/F tab 06/08/20 amiodarone 200 mg tablet 100 mg PO DAILY #45 tab 03/09/21 cholecalciferol (vitamin D3) 25 mcg (1,000 unit) tablet 500 unit PO DAILY tab 03/16/21 fenofibrate nanocrystallized 145 mg tablet 145 mg PO DAILY tab 03/16/21 fluticasone propionate 50 mcg/actuation nasal spray,suspension 1 spray NASAL DAILY PRN 03/16/21 tamsulosin 0.4 mg capsule 0.4 mg PO DAILY cap 03/16/21 temazepam 15 mg capsule 15 mg PO QHS cap 03/16/21 Daliresp 500 mcg PO DAILY 09/06/21 pentoxifylline 400 mg PO DAILY 09/06/21 guaifenesin [Mucus Relief ER] 1,200 mg PO BID #0 tab 09/07/21 levofloxacin 750 mg PO DAILY #5 tab 09/07/21 prednisone See Taper PO DAILY #30 tab 09/07/21 Hospital Course Operations None Procedures None Summary of Care Provided Minutes Spent on Discharge: 35 Hospital Course: Patient is a 76-year-old male who originally presented with increasing shortness of breath and chills. Patient has a history of COPD. Patient was admitted with hypoxia which has resolved and patient is stable on room air. Patient was given IV steroids along with IV antibiotics and will be discharged with home with a prednisone taper as well as 5 more days of Levaquin to complete a 7-day antibiotic course. Physical Exam Const alert, oriented x3 and no apparent distress General Appearance: cooperative HEENT normocephalic and head/scalp atraumatic Eyes conjunctivae normal and no scleral icterus Neck supple General: trachea midline Resp normal respiratory effort Auscultation: wheezes expiratory wheezes and throughout Cardio regular rate, regular rhythm, S1 normal heart sound and S2 normal heart sound GI normal to inspection, nondistended, normoactive bowel sounds, soft to palpation and non-tender Extremity normal capillary refill and no clubbing, cyanosis or edema General Extremity: no tenderness to palpation of joints or extremities Skin General Skin Exam: no breakdown and turgor normal Lesions: no lesions Rashes: no rashes Neuro oriented x3, moves all extremities, no focal motor deficits and no sensory deficits noted Psych affect normal Weight / BMI Weight Weight: 164 lb Body Mass Index (BMI) 25.9 ABG / Lab / Microbiology Data Result Diagrams: 09/07/21 06:40 09/07/21 06:40 Laboratory: Laboratory Results - last 24 hr 09/06/21 23:22: Urine Color Yellow, Urine Clarity Clear, Urine pH 7.0, Ur Specific Ewing 1.010, Urine Protein Negative, Urine Glucose (UA) Normal, Urine Ketones Negative, Urine Occult Blood Negative, Urine Nitrite Negative, Urine Bilirubin Negative, Urine Urobilinogen Normal, Ur Leukocyte Esterase 100 H, Urine RBC 0 SEEN, Urine WBC 0-5 SEEN, Ur Squamous Epith Cells 0 SEEN, Urine Bacteria 1+, Urine Mucus 0 SEEN 09/07/21 06:40: WBC 7.7, RBC 4.52 L, Hgb 13.1, Hct 39.9 L, MCV 88.3, MCH 29.0, MCHC 32.8, RDW Std Deviation 45.1 H, RDW Coeff of Demar 14.0, Plt Count 340, MPV 9.7, Immature Gran % (Auto) 0.500, Neut % (Auto) 89.9 H, Lymph % (Auto) 5.7 L, Peach % (Auto) 3.8, Eos % (Auto) 0.0, Baso % (Auto) 0.1, Absolute Neuts (auto) 6.9, Absolute Lymphs (auto) 0.44 L, Nucleated RBC % 0 09/07/21 06:40: Sodium 139, Potassium 4.0, Chloride 108 H, Carbon Dioxide 23.0, Anion Gap 8, BUN 14, Creatinine 0.90, Estim Creat Clear Calc 67.32, Est GFR (MDRD) Af Amer 106, Est GFR (MDRD) Non-Af 87, BUN/Creatinine Ratio 15.5, Glucose 154 H, Calcium 9.0 Microbiology: Microbiology 09/06/21 17:47 Sputum, Expectorated/Coughed Respiratory Culture - Preliminary Appears to be normal respiratory vickey. Further studies to follow. 09/06/21 14:15 Urine, Clean Catch Urine Culture - Preliminary Culture exhibits no growth. 09/06/21 14:15 Urine, Clean Catch Streptococcus pneumoniae Antigen (M - Final 09/06/21 14:15 Urine, Clean Catch Legionella Antigen - Final 09/06/21 09:25 Nasal Secretion SARS-CoV-2 Antigen (Rapid) - Final D/C Instructions Discharge Diet: Low fat / Low cholesterol Discharge Activity: Return to Normal Activity Call your doctor if you observe: Fever of 101 or Higher, Shortness of breath and Chest pain Meaningful Use Info Meaningful Use Diagnoses (Choose all that apply): None applicable Discharge Plan Admission Admit Date/Time: 09/06/21 11:30 Primary Reason for Your Visit: Pneumonia Attending Provider: Scott Taveras Primary Care Provider: Yen Hamlin Discharge Orders/Prescriptions Prescriptions: New Mucus Relief ER 1,200 mg Tablet Extended Release 12hr 1,200 mg PO BID Qty: 0 RF: 0 levofloxacin 750 mg tablet 750 mg PO DAILY Qty: 5 RF: 0 prednisone 10 mg tablet See Taper mg PO DAILY Qty: 30 RF: 0 Continued aspirin [Adult Low Dose Aspirin] 81 mg tablet,delayed release (DR/EC) 81 mg PO .M// RF: 0 fenofibrate nanocrystallized 145 mg tablet 145 mg PO DAILY RF: 0 temazepam 15 mg capsule 15 mg PO QHS RF: 0 tamsulosin 0.4 mg capsule 0.4 mg PO DAILY RF: 0 cholecalciferol (vitamin D3) 25 mcg (1,000 unit) tablet 500 unit PO DAILY RF: 0 albuterol sulfate 1 PUFF inhaler 1 puff INHALATION Q4H PRN PRN (Reason: Shortness Of Breath) RF: 0 tiotropium bromide 1 PUFF inhaler 1 puff INHALATION DAILY RF: 0 azelastine 137 mcg (0.1 %) aerosol,spray 2 spray INTRANASAL BID PRN (Reason: sinus) RF: 0 fluticasone propion-salmeterol 1 PUFF inhaler 1 puff INHALATION BID RF: 0 citalopram 10 MG tablet 10 mg PO DAILY RF: 0 pantoprazole 40 MG tablet,delayed release (DR/EC) 40 mg PO DAILY RF: 0 fluticasone propionate 50 mcg/actuation spray,suspension 1 spray NASAL DAILY PRN (Reason: allergies) RF: 0 calcium carbonate 600 MG tablet 600 mg PO DAILY RF: 0 montelukast 10 MG tablet 10 mg PO DAILY RF: 0 kcuerptk-qgs-QA-lycopen-lutein 1 EACH tablet 1 ea PO DAILY RF: 0 pravastatin 80 MG tablet 80 mg PO QHS RF: 0 pentoxifylline 400 mg Tablet Extended Release 400 mg PO DAILY RF: 0 Daliresp 500 mcg Tablet 500 mcg PO DAILY RF: 0 amiodarone 200 mg tablet 100 mg PO DAILY Qty: 45 RF: 3 Referrals / Follow Up: Yen Hamlin DO [Primary Care Provider] - Within 2 Weeks Disposition Disposition (needs filled in before D/C Order can be placed): Home, Self Care Documented by User: Dr. Scott Taveras DO 09/09/21 19:00 Providers Date of Admission: 09/06/21 Reason For Visit: PNA Medications at Discharge Home Medications albuterol sulfate 1 puff INHALATION Q4H PRN PRN 01/25/14 tiotropium bromide 1 puff INHALATION DAILY 01/25/14 citalopram 10 mg PO DAILY 06/11/17 fluticasone propion-salmeterol 1 puff INHALATION BID 06/11/17 pantoprazole 40 mg PO DAILY 06/11/17 calcium carbonate 600 mg PO DAILY 11/05/19 montelukast 10 mg PO DAILY 11/05/19 rntrjzig-tuj-XX-lycopen-lutein 1 ea PO DAILY 11/05/19 pravastatin 80 mg PO QHS tab 11/06/19 azelastine 137 mcg (0.1 %) nasal spray aerosol 2 spray INTRANASAL BID PRN 11/11/19 aspirin 81 mg tablet,delayed release 81 mg PO .M// tab 06/08/20 amiodarone 200 mg tablet 100 mg PO DAILY #45 tab 03/09/21 cholecalciferol (vitamin D3) 25 mcg (1,000 unit) tablet 500 unit PO DAILY tab 03/16/21 fenofibrate nanocrystallized 145 mg tablet 145 mg PO DAILY tab 03/16/21 fluticasone propionate 50 mcg/actuation nasal spray,suspension 1 spray NASAL DAILY PRN 03/16/21 tamsulosin 0.4 mg capsule 0.4 mg PO DAILY cap 03/16/21 temazepam 15 mg capsule 15 mg PO QHS cap 03/16/21 Daliresp 500 mcg PO DAILY 09/06/21 pentoxifylline 400 mg PO DAILY 09/06/21 guaifenesin [Mucus Relief ER] 1,200 mg PO BID #0 tab 09/07/21 levofloxacin 750 mg PO DAILY #5 tab 09/07/21 prednisone See Taper PO DAILY #30 tab 09/07/21 ABG / Lab / Microbiology Data Result Diagrams: 09/07/21 06:40 09/07/21 06:40 Discharge Plan Admission Admit Date/Time: 09/06/21 11:30 Primary Reason for Your Visit: Pneumonia Attending Provider: Scott Taveras Primary Care Provider: Yen Hamlin Discharge Orders/Prescriptions Prescriptions: New Mucus Relief ER 1,200 mg Tablet Extended Release 12hr 1,200 mg PO BID Qty: 0 RF: 0 levofloxacin 750 mg tablet 750 mg PO DAILY Qty: 5 RF: 0 prednisone 10 mg tablet See Taper mg PO DAILY Qty: 30 RF: 0 Continued aspirin [Adult Low Dose Aspirin] 81 mg tablet,delayed release (DR/EC) 81 mg PO .// RF: 0 fenofibrate nanocrystallized 145 mg tablet 145 mg PO DAILY RF: 0 temazepam 15 mg capsule 15 mg PO QHS RF: 0 tamsulosin 0.4 mg capsule 0.4 mg PO DAILY RF: 0 cholecalciferol (vitamin D3) 25 mcg (1,000 unit) tablet 500 unit PO DAILY RF: 0 albuterol sulfate 1 PUFF inhaler 1 puff INHALATION Q4H PRN PRN (Reason: Shortness Of Breath) RF: 0 tiotropium bromide 1 PUFF inhaler 1 puff INHALATION DAILY RF: 0 azelastine 137 mcg (0.1 %) aerosol,spray 2 spray INTRANASAL BID PRN (Reason: sinus) RF: 0 fluticasone propion-salmeterol 1 PUFF inhaler 1 puff INHALATION BID RF: 0 citalopram 10 MG tablet 10 mg PO DAILY RF: 0 pantoprazole 40 MG tablet,delayed release (DR/EC) 40 mg PO DAILY RF: 0 fluticasone propionate 50 mcg/actuation spray,suspension 1 spray NASAL DAILY PRN (Reason: allergies) RF: 0 calcium carbonate 600 MG tablet 600 mg PO DAILY RF: 0 montelukast 10 MG tablet 10 mg PO DAILY RF: 0 elkfvxbn-pwd-OI-lycopen-lutein 1 EACH tablet 1 ea PO DAILY RF: 0 pravastatin 80 MG tablet 80 mg PO QHS RF: 0 pentoxifylline 400 mg Tablet Extended Release 400 mg PO DAILY RF: 0 Daliresp 500 mcg Tablet 500 mcg PO DAILY RF: 0 amiodarone 200 mg tablet 100 mg PO DAILY Qty: 45 RF: 3 Referrals / Follow Up: Yen Hamlin DO [Primary Care Provider] - Within 2 Weeks Disposition Disposition (needs filled in before D/C Order can be placed): Home, Self Care Charges/Coding Addendum Addendum: Patient was seen and examined independently of Miley Sims today, patient is currently on room air and does not require oxygen on ambulation or at rest. Patient states he feels better today. On examination he appeared in good health and spirits. Vital signs as documented. Skin warm and dry and without overt rashes. Neck without JVD, neck was supple, trachea midline, thyroid was normal. Lungs clear bilaterally, normal air movement was noted. Heart exam notable for regular rhythm, normal sounds and absence of murmurs, rubs or gallops. Abdomen unremarkable and without evidence of organomegaly, masses, or abdominal aortic enlargement. Bowel sounds are present, abdomen is not distended. Extremities nonedematous, no cyanosis was noted, no clubbing was noted. Neuro: Cranial nerves II through XII are grossly intact, no focal motor deficits were noted, sensation to light touch and pinprick intact, motor exam 5/5 throughout. Psych: Patient is alert and oriented x3, he does not appear anxious or depressed, he does not appear agitated. Assessment #1 community-acquired pneumonia-organism unknown, patient will be discharged on additional outpatient antibiotics #2 acute hypoxic respiratory failure secondary to #1-this is resolved at this time, patient does not require supplemental oxygen at the time of #3 chronic obstructive pulmonary disease-patient will continue home medications #4 hyperlipidemia-patient will resume his home medications after discharge I have reviewed Miley Sims's discharge summary including her medical assessment and plan of care and endorse it with the above additions Visit Charges Inpatient E&M: 38635 Disch Hosp
[2021-09-07 13:00] VITALS: BP 123/78; PULSE 79; RESP 18; TEMP 36.2; O2SAT 94
== END 2021-09-07 13:20 | disposition home or self-care (01) | DRG 193 ==
LOC: ED 11:11 → MS2 12:04
PROVIDERS: Nurse Practitioner Family; Admitting Provider Internal Medicine; Emergency Provider Emergency Medicine; PCP Internal Medicine; Visit Provider Internal Medicine
DX: J18.9 Pneumonia, unspecified organism (principal); J96.01 Acute respiratory failure with hypoxia; J44.0 Chronic obstructive pulmonary disease with (acute) lower respiratory infection; Z20.822 Contact with and (suspected) exposure to COVID-19; I12.9 Hypertensive chronic kidney disease with stage 1 through stage 4 chronic kidney disease, or unspecified chronic kidney disease; N18.2 Chronic kidney disease, stage 2 (mild); I49.3 Ventricular premature depolarization; E78.5 Hyperlipidemia, unspecified; K58.9 Irritable bowel syndrome, unspecified; N40.0 Benign prostatic hyperplasia without lower urinary tract symptoms; K21.9 Gastro-esophageal reflux disease without esophagitis; F32.A Depression, unspecified; F41.9 Anxiety disorder, unspecified; Z79.82 Long term (current) use of aspirin; Z79.899 Other long term (current) drug therapy; I25.2 Old myocardial infarction; Z87.891 Personal history of nicotine dependence; Z95.5 Presence of coronary angioplasty implant and graft
CPT/HCPCS: 36415; 71045; 80048; 80053; 81001; 83605; 83880; 85025; 85610; 85730; 87040; 87070; 87086; 87205; 87426; 87449; 93005; 94640; 97802; 99251; 99285; J7030; A4216; G0463

== ENCOUNTER 2021-11-01 09:03 | Outpatient (CLI) | payer MEDICARE, OTHER, SELFPAY ==
--- NOTE | 2021-11-01 09:08 | RAD_ITS ---
EXAM: XR Chest, 2 Views CLINICAL INDICATION: 76 years old, Male; PNEUMONIA TECHNIQUE: Frontal and lateral views of the chest. This report was created using [employer] report generation technology. COMPARISON: XR Chest dated 09/06/2021 FINDINGS: Lungs and pleural spaces: Unremarkable. No consolidation or edema. No pneumothorax. No effusion. Heart: Unremarkable. Cardiac silhouette not enlarged. Mediastinum: Central airways and mediastinal contour are unremarkable. Bones/joints: Unremarkable. Soft tissues: Unremarkable. Vasculature: Calcified aorta. RAD/Chest PA and Lateral IMPRESSION: No acute findings in the chest. Electronically Signed: Gomez Ro MD at 7:47 EST ,
== END 2021-11-01 23:59 | disposition home or self-care (01) ==
LOC: MTRAD 09:05
PROVIDERS: PCP Internal Medicine; Referring Provider Internal Medicine; Visit Provider Internal Medicine
DX: J18.9 Pneumonia, unspecified organism (principal)
CPT/HCPCS: 71046

== ENCOUNTER 2022-02-06 09:50 | Inpatient (IN) | payer MEDICARE, OTHER, SELFPAY ==
[2022-02-06] VITALS (14 sets, daily range): BP systolic 97–192; BP diastolic 57–160; PULSE 58–144; RESP 13–22; TEMP 36.6–37.9; O2SAT 2–97; BMI 24.7; BMI 25.2
--- NOTE | 2022-02-06 10:10 | EKG12_ITS ---
Test Reason : CP Blood Pressure : / mmHG Vent. Rate : 074 BPM Atrial Rate : 074 BPM P-R Int : 164 ms QRS Dur : 080 ms QT Int : 400 ms P-R-T Axes : 079 -47 066 degrees QTc Int : 444 ms Normal sinus rhythm Left axis deviation Septal infarct , age undetermined Abnormal ECG Confirmed by ANTHONY WALKER, JOAN ([id number]), metropolitan editor TRAVON MANDUJANO ([id number]) on 02/08/2022 1:46:50 PM Referred By: ABEBA Confirmed By:BECKY CRUZ MD
[2022-02-06 10:39] LABS: Absolute Lymphocyte Count 0.52 X10^3/uL (0.83-4.51); Absolute Neutrophil Count 11.2 X10^3/uL (2.0-7.7); Basophil# 0.03 X10^3/uL; Basophil% 0.2 % (0-1); Eosinophil# 0.09 X10^3/uL; Eosinophils% 0.7 % (0-5); Hematocrit 46.7 % (40-54); Lymphocyte # 0.52 X10^3/ul (0.83-4.51); Mean Corp Hgb Conc 32.1 g/dL (32-36); Mean Corpuscular Volume 90.2 fL (80-94); Mean Platelet Vol. 9.7 fl (6.2-12.0); Monocyte# 1.11 X10^3/uL; Monocyte% 8.5 % (0-10); NRBC Flagged by Analyzer 0 % (0-5); Neutrophil # 11.19 X10^3/uL (2.7-7.7); Neutrophil % 86.1 % (47-70); POSITIVE DIFFERENTIAL YES; Platelet Count 275 K/mm3 (150-450); RBC Distribution Width SD 50.1 fl (35.1-43.9); Red Blood Count 5.18 M/mm3 (4.6-6.2)
[2022-02-06 10:40] LABS: Differential Indicated SCAN CRITERIA MET
[2022-02-06 10:57] LABS: AST(SGOT) 21 U/L (15-37); Alanine Aminotransfer ALT/SGPT 27 U/L (16-61); Albumin, Serum 3.8 g/dL (3.2-5.0); Alkaline Phosphatase 40 U/L (45-117); Anion Gap 7 (5-15); BUN 21 mg/dL (7-18); BUN/Creat Ratio 16.8 RATIO (10-20); Calcium,Total 9.1 mg/dL (8.5-10.1); Chloride 104 mmol/L (98-107); Creatinine, Serum 1.25 mg/dL (0.70-1.30); EST Glomerular Filtration Rate 60 mL/min (>60); Est Glom Filt Rate - Afr Amer 72 mL/min (>60); Estimated Creatinine Clearance 47.74 ml/min; Globulin 3.7 g/dL (2.2-4.2); Glucose 103 mg/dL (74-106); Potassium 4.1 mmol/L (3.5-5.1); Protein, Total 7.5 g/dL (6.4-8.2); Sodium Level 138 mmol/L (136-145); Troponin-I HS 3 pg/mL (3.0-78.0)
[2022-02-06 11:00] LABS: Base Excess -2 mmol/L (-2 to +2); Bicarbonate 22.2 mmol/L (22-26); Blood Gas Specimen Type ART; O2 Delivery Device Cannula; PO2 67 mmHG (75-100); SITE R Radial; SO2 94 % (95-99); Total Carbon Dioxide 23 mmol/L; pCO2 32.7 mmHg (35-45); pH 7.44 (7.35-7.45)
--- NOTE | 2022-02-06 11:00 | RAD_ITS ---
STUDY: X-RAY CHEST REASON FOR EXAM: Male, 77 years old. Acute respiratory failure with hypoxia TECHNIQUE: PA and lateral views of the chest. COMPARISON: Comparison is made with prior study dated 11/01/2021. FINDINGS: EKG electrodes are seen. There is hyperinflation of the lungs consistent with chronic obstructive lung disease (COPD). There is no demonstrated pleural abnormality. Normal size heart. Normal mediastinum and tremayne. Normal visualized pulmonary arteries. There is atherosclerotic calcification of the aortic arch with tortuosity. Normal visualized thoracic spine. Normal visualized ribs, clavicles, and shoulders. There is no demonstrated abnormality of the visualized soft tissue structures of the upper abdomen. RAD/Chest PA and Lateral IMPRESSION: Hyperinflation. The lungs are clear. Electronically Signed: Isael Abdi MD at 11:32 EDT ,
--- NOTE | 2022-02-06 11:08 | EDS_ITS ---
HPI History of Present Illness Chief Complaint: Chest Pain Detail of Chief Complaint: Started last evening with choking Informant: patient Onset/Context/Timing Onset: Yesterday Timing: Continuous Quality: Positive for Aching Current Severity: Mild Maximum Severity: Severe Worsened By: - (Possible food bolus obstructing esophagus) Relieved By: - (After coughing and relieving obstruction) Associated Symptoms: Positive for Dyspnea and Cough; Negative for Nausea, Vomiting, Diaphoresis, Fever, Lightheadedness, Acid Reflux and Palpitations Narrative Narrative: Patient is a 77-year-old male with history of coronary artery disease status post stent placement, essential primary hypertension, hyperlipidemia who presents with chest discomfort after eating [place] food with his . Upon arrival to home he developed chest discomfort and felt something was stuck. He began to cough. He states after coughing significantly the obstruction resolved. He began to cough up colored sputum. He complained of significant shortness of breath this morning. His is on home oxygen. He used her pulse ox and 100 his reading was 70%. He arrived on oxygen and saturation was 92%. He denies fever but does complain of chills. He denies headache, visual, ocular auditory symptoms. He denies nausea, vomiting or diarrhea. He denies history of VTE. He denies leg pain, swelling or discoloration. Prior Similar Symptoms: No CVD Risk Factors: Positive for Hypertension, Hypercholesterolemia and Smoking; Negative for Diabetes and Family History 1' </=55 PE Risk Factors: Negative for Recent Travel/Surgery, Recent Immobilization, Prior DVT or PE, Cancer and OCP + Smoking + >/=35 TAD Risk Factors: Positive for Hypertension; Negative for Marfan's Syndrome and Family History [facility] Medical History Acute upper respiratory infection Anxiety and depression Aortic aneurysm of unspecified site without mention of rupture Atherosclerotic heart disease of [place] coronary artery without angina pectoris BPH (benign prostatic hyperplasia) CKD (chronic kidney disease), stage III COPD (chronic obstructive pulmonary disease) Dizziness and giddiness Essential (primary) hypertension Former smoker Former tobacco use GERD (gastroesophageal reflux disease) Hyperlipidemia IBS (irritable bowel syndrome) Irregular heart beat Multiple premature ventricular complexes 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) Pneumonia Home Medications albuterol sulfate 1 puff INHALATION Q4H PRN PRN 01/25/14 [History Last Taken 3 Months Ago ~08/05/19] tiotropium bromide 1 puff INHALATION DAILY 01/25/14 [History Last Taken 09/05/21] pantoprazole 40 mg PO DAILY 06/11/17 [History Last Taken 09/05/21] calcium carbonate 600 mg PO DAILY 11/05/19 [History Last Taken 09/05/21] montelukast 10 mg PO DAILY 11/05/19 [History Last Taken 09/05/21] jvfgsysl-jxc-QU-lycopen-lutein 1 ea PO DAILY 11/05/19 [History Last Taken 09/05/21] pravastatin 80 mg PO QHS tab 11/06/19 [Rx Last Taken 09/05/21] amiodarone 200 mg tablet 100 mg PO DAILY #45 tab 03/09/21 [Rx Last Taken 09/05/21] cholecalciferol (vitamin D3) 25 mcg (1,000 unit) tablet 500 unit PO DAILY tab 03/16/21 [History Last Taken 09/05/21] fenofibrate nanocrystallized 145 mg tablet 145 mg PO DAILY tab 03/16/21 [History Last Taken 09/05/21] tamsulosin 0.4 mg capsule 0.4 mg PO DAILY cap 03/16/21 [History Last Taken 1 ] temazepam 15 mg capsule 15 mg PO QHS cap 03/16/21 [History Last Taken 09/05/21] Allergy/AdvReac Type Severity Reaction Status Date / Time dog dander Allergy Other Verified 02/06/22 09:51 Family History Unknown No problems noted. Daughter Hypertension Surgical History H/O right coronary artery stent placement (09/07/09) History of left heart catheterization (02/17/19) History of right knee surgery Social History household members: spouse Smoking Status: Former smoker how long ago did patient quit smokin years ago alcohol intake: current alcohol intake frequency: a few times a week Alcohol type: beer substance use type: does not use caffeine: Yes Type: coffee Number of servings: 20 ROS ROS ED Constitutional Constitutional ED: Reports chills and sweats; Denies subjective or weight loss Eyes Eyes: Reports none ENT ENT ED: Denies ear pain, rhinorrhea or sore throat Cardiovascular Cardiovascular: Reports as per HPI; Denies orthopnea or paroxysmal nocturnal dyspnea Respiratory/Chest Respiratory/Chest: Reports cough, dyspnea, dyspnea on exertion and sputum; Denies orthopnea or paroxysmal nocturnal dyspnea Gastrointestinal Gastrointestinal: Denies abdominal pain, constipation, diarrhea, melena, nausea or vomiting Genitourinary Genitourinary ED: Denies dysuria, hematuria or urinary frequency Musculoskeletal Musculoskeletal: Denies arthralgias, myalgias or neck pain Integumentary Denies abscess, Abrasions or rash Neurologic Neurologic: Denies headache(s) or weakness Endocrine Endocrinology: Denies polydipsia, polyphagia or polyuria Hematologic/Lymphatic Hematologic/Lymphatic: Denies easy bleeding or easy bruising EXAM Physical Exam Const Vital Signs: 02/06/22 09:53 02/06/22 10:04 02/06/22 10:15 Temperature 100.2 F H 100.2 F H Temperature Source Temporal Temporal Pulse Rate 144 H 144 H Respiratory Rate 22 H 22 H Respiratory Effort Blood Pressure 192/160 H 192/160 H Blood Pressure Mean 170 170 Pulse Ox 90 97 97 Oxygen Delivery Method Room Air Nasal Cannula Nasal Cannula Oxygen Flow Rate (L/min) 4 4 02/06/22 10:27 02/06/22 10:29 02/06/22 10:56 Temperature Temperature Source Pulse Rate 71 69 Respiratory Rate 16 15 Respiratory Effort Short of Breath Blood Pressure 97/84 H Blood Pressure Mean 88 Pulse Ox 96 95 Oxygen Delivery Method Nasal Cannula Nasal Cannula Oxygen Flow Rate (L/min) 4 3 02/06/22 11:00 02/06/22 11:18 Temperature 100.2 F H Temperature Source Temporal Pulse Rate 69 Respiratory Rate 15 Respiratory Effort Blood Pressure 97/84 H Blood Pressure Mean 88 Pulse Ox 95 Oxygen Delivery Method Nasal Cannula Nasal Cannula Oxygen Flow Rate (L/min) 3 3 Positive well nourished and well developed General Appearance ED: well developed; Negative for NAD or pallor HEENT Reports TM's clear and dry mucous membranes normocephalic and atraumatic Tympanic Membrane ED: Yes TM's clear Mouth ED: Yes dry mucous membranes Mouth: dry mucous membranes Eyes PERRL and EOMs intact bilaterally General Eye ED: Negative for pale conjunctiva or scleral icterus Neck no lymphadenopathy, supple and no JVD Chest Wall inspection of chest normal and palpation of chest normal Resp No normal respiratory effort and No clear to auscultation bilaterally Effort and Inspection: Negative for respiratory distress Auscultation: rales right other (Rales noted anteriorly) and wheezes Cardio regular rate, regular rhythm, S1 normal heart sound, S2 normal heart sound and no murmurs GI normal to inspection, nondistended, normoactive bowel sounds, soft to palpation and non-tender Extremity normal to inspection Extremity Narrative: There is no asymmetry, swelling, discoloration, leg vein distention, palpable cords or tenderness along the distribution of the deep venous system. General Extremety ED: Negative for edema, pulses abnormal or tenderness General Extremity: Negative for edema or pulses abnormal Neuro oriented x3 and CN's II-XII intact bilaterally Sensorium / Orientation: awake and alert Sensory Exam: sensory level loss detected Motor Exam: strength 5/5 throughout Psych mental status grossly normal Skin no rashes or lesions noted and no wounds General Skin Exam: Negative for jaundice or pallor MDM MDM MDM Narrative Medical decision making narrative: With history of possible food bolus obstruction productive cough fever tachycardia tachypnea and hypoxia suspect patient aspirated. Sepsis work-up was undertaken. To evaluate for anemia, white count, renal function, lactic acidosis. Chest x-ray was obtained to confirm suspicion of aspiration pneumonitis. Blood cultures were obtained prior to initiation of antibiotics. He was treated with Unasyn and azithromycin. Since patient had multiple low blood pressure readings he received a 1000 cc bolus of normal saline. Lab Data Labs: Laboratory Results - last 24 hr 02/06/22 02/06/22 02/06/22 10:30 10:30 10:30 WBC 13.0 H RBC 5.18 Hgb 15.0 Hct 46.7 MCV 90.2 MCH 29.0 MCHC 32.1 RDW Std Deviation 50.1 H RDW Coeff of Demar 15.0 H Plt Count 275 MPV 9.7 Immature Gran % (Auto) 0.500 Neut % (Auto) 86.1 H Lymph % (Auto) 4.0 L [place] % (Auto) 8.5 Eos % (Auto) 0.7 Baso % (Auto) 0.2 Absolute Neuts (auto) 11.2 H Absolute Lymphs (auto) 0.52 L Nucleated RBC % 0 Sodium 138 Potassium 4.1 Chloride 104 Carbon Dioxide 27.0 Anion Gap 7 BUN 21 H Creatinine 1.25 Estim Creat Clear Calc 47.74 Est GFR (MDRD) Af Amer 72 Est GFR (MDRD) Non-Af 60 BUN/Creatinine Ratio 16.8 Glucose 103 Lactic Acid 1.0 Calcium 9.1 Total Bilirubin 0.70 AST 21 ALT 27 Alkaline Phosphatase 40 L Troponin I High Sens 3 Total Protein 7.5 Albumin 3.8 Globulin 3.7 Albumin/Globulin Ratio 1.0 ABG was obtained on either 3 or 4 L. pH was 7.44, PCO2 32.7, PO2 67, bicarb 22 base excess -1.9 and a saturation 93.9%. ABG Data ABG results: ABG 02/06/22 10:51 Specimen Type ART Sample Site R Radial pH 7.44 Bicarbonate Actual 22.2 Total CO2 23 Base Excess -2 O2 Saturation 94 L O2 % HEARING SCREEN COORDINATOR ABG pCO2 32.7 L ABG pO2 67 L O2 Delivery Device Cannula Liter Flow 4.0 Radiography Chest X-Ray - ED: 2 View and Read by ED Physician (2 view chest x-ray is independently interpreted by me at 1113. There is hyperaeration with chronic changes. Cardiac silhouette and size normal. Perihilar region normal. Osseous structures are normal.) Diagnostic Testing: Clinical Impression(s) from Imaging Studies Chest X-Ray 02/06/22 11:00 IMPRESSION: Hyperinflation. The lungs are clear. Electronically Signed: Isael Abdi MD at 11:32 EDT , EKG Initial EKG: Attestation: I personally reviewed and interpreted this EKG as follows: Interpretation: Sinus Rhythm (Sinus rhythm with a ventricular rate of 74. SD interval is 154 ms. QS duration 80 ms. QT duration 400 ms. [place] is to the left. There is decreased anterior force noted.) Critical Care Time Critical Care Time: Yes Critical care time (excluding procedures): 30-74 minutes (32 minutes), Including time spent: (History, for cycle, documentation, review of prior records), Discussing w/Patient &/or Family/Lace Roller, Discussing w/Consultants, Arranging Admission or Transfer and Performing Direct Patient Care at Bedside Discharge Plan Dx/Rx/DC Orders Clinical Impression: Acute respiratory failure with hypoxia, Aspiration pneumonitis, Fever, Acute hypotension Disposition Disposition: Acute Care Hospital [facility] Discharge Date/Time: 02/06/22 12:41
[2022-02-06] MEDS: 0.9% Normal Saline 1,000 ML 1000 ML IV (11:22)
--- NOTE | 2022-02-06 11:24 | NURSING ---
DR SOLANO FOR DR US
--- NOTE | 2022-02-06 11:42 | PCM.HP.STD ---
Documented by User: JILL Jeong 02/06/22 12:01 HPI - General General Date of Admission: 02/06/22 Date of Service: 02/06/22 Chief Complaint: Shortness of Breath HPI Narrative SHAY MUSTAFA, is a 77 M who presents with complaints of shortness of breath and chest pain. Patient states that he last night he was eating [place] food and choked. Patient states that he was able to cough up the food however since then he has been short of breath and has been coughing up thick sputum. Patient reports that he was so short of breath at home he began using his 's oxygen. Patient reports that his pulse ox at home was 70% prior to initiating oxygen. Patient reports a history of coronary artery disease with stent placement, hyperlipidemia, BPH, COPD. [facility] Medical History Acute upper respiratory infection Anxiety and depression Aortic aneurysm of unspecified site without mention of rupture Atherosclerotic heart disease of [place] coronary artery without angina pectoris BPH (benign prostatic hyperplasia) CKD (chronic kidney disease), stage III COPD (chronic obstructive pulmonary disease) Dizziness and giddiness Essential (primary) hypertension Former smoker Former tobacco use GERD (gastroesophageal reflux disease) Hyperlipidemia IBS (irritable bowel syndrome) Irregular heart beat Multiple premature ventricular complexes 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) Pneumonia Home Medications albuterol sulfate 1 puff INHALATION Q4H PRN PRN 01/25/14 [History Last Taken 3 Months Ago ~08/05/19] tiotropium bromide 1 puff INHALATION DAILY 01/25/14 [History Last Taken 09/05/21] pantoprazole 40 mg PO DAILY 06/11/17 [History Last Taken 09/05/21] calcium carbonate 600 mg PO DAILY 11/05/19 [History Last Taken 09/05/21] montelukast 10 mg PO DAILY 11/05/19 [History Last Taken 09/05/21] tjakvkcw-etk-TS-lycopen-lutein 1 ea PO DAILY 11/05/19 [History Last Taken 09/05/21] pravastatin 80 mg PO QHS tab 11/06/19 [Rx Last Taken 09/05/21] amiodarone 200 mg tablet 100 mg PO DAILY #45 tab 03/09/21 [Rx Last Taken 09/05/21] cholecalciferol (vitamin D3) 25 mcg (1,000 unit) tablet 500 unit PO DAILY tab 03/16/21 [History Last Taken 09/05/21] fenofibrate nanocrystallized 145 mg tablet 145 mg PO DAILY tab 03/16/21 [History Last Taken 09/05/21] tamsulosin 0.4 mg capsule 0.4 mg PO DAILY cap 03/16/21 [History Last Taken 09/05/21] temazepam 15 mg capsule 15 mg PO QHS cap 03/16/21 [History Last Taken 09/05/21] Allergy/AdvReac Type Severity Reaction Status Date / Time dog dander Allergy Other Verified 02/06/22 09:51 Family History Unknown No problems noted. Daughter Hypertension Surgical History H/O right coronary artery stent placement (09/07/09) History of left heart catheterization (02/17/19) History of right knee surgery Social History household members: spouse Smoking Status: Former smoker how long ago did patient quit smokin years ago alcohol intake: current alcohol intake frequency: a few times a week Alcohol type: beer substance use type: does not use caffeine: Yes Type: coffee Number of servings: 20 ROS Constitutional Constitutional: Reports fever(s) and malaise; Denies anorexia, chills, fatigue or weakness Cardiovascular Cardiovascular: Denies chest pain, edema, palpitations or syncope Respiratory/Chest Respiratory/Chest: Reports change in phlegm color, productive cough, shortness of breath at rest and shortness of breath with exertion Gastrointestinal Gastrointestinal: Denies abdominal pain, constipation, diarrhea, nausea or vomiting Genitourinary Genitourinary: Denies dysuria Musculoskeletal Musculoskeletal: Denies back pain, extremity pain, joint pain or joint stiffness Integumentary Integumentary: Denies dry skin Neurologic Neurologic: Denies abnormal gait, abnormal speech, confusion or dizziness Psychiatric Psychiatric: Denies anxiety or depression Endocrine Endocrinology: Denies change in body appearance Hematologic/Lymphatic Hematologic/Lymphatic: Denies anemia Vital Signs Vital Signs Vital Signs: 02/06/22 09:53 02/06/22 10:04 02/06/22 10:15 Temperature 100.2 F H 100.2 F H Temperature Source Temporal Temporal Pulse Rate 144 H 144 H Respiratory Rate 22 H 22 H Respiratory Effort Blood Pressure 192/160 H 192/160 H Blood Pressure Mean 170 170 Pulse Ox 90 97 97 Oxygen Delivery Method Room Air Nasal Cannula Nasal Cannula Oxygen Flow Rate (L/min) 4 4 02/06/22 10:27 02/06/22 10:29 02/06/22 10:56 Temperature Temperature Source Pulse Rate 71 69 Respiratory Rate 16 15 Respiratory Effort Short of Breath Blood Pressure 97/84 H Blood Pressure Mean 88 Pulse Ox 96 95 Oxygen Delivery Method Nasal Cannula Nasal Cannula Oxygen Flow Rate (L/min) 4 3 02/06/22 11:00 02/06/22 11:18 Temperature 100.2 F H Temperature Source Temporal Pulse Rate 69 Respiratory Rate 15 Respiratory Effort Blood Pressure 97/84 H Blood Pressure Mean 88 Pulse Ox 95 Oxygen Delivery Method Nasal Cannula Nasal Cannula Oxygen Flow Rate (L/min) 3 3 Weight Weight: 158 lb 4.67 oz Body Mass Index (BMI) 24.7 Physical Exam Const alert, oriented x3 and no apparent distress General Appearance: cooperative HEENT normocephalic and head/scalp atraumatic Eyes conjunctivae normal and no scleral icterus Neck supple General: trachea midline Resp normal respiratory effort and normal air movement Auscultation: diminished lung sounds Cardio regular rate, regular rhythm, S1 normal heart sound, S2 normal heart sound and peripheral pulses 2+ throughout GI normal to inspection, nondistended, normoactive bowel sounds, soft to palpation and non-tender Extremity normal capillary refill and no clubbing, cyanosis or edema General Extremity: no tenderness to palpation of joints or extremities Skin General Skin Exam: no breakdown and turgor normal Lesions: no lesions Rashes: no rashes Neuro no focal motor deficits and no sensory deficits noted Psych thought process normal, cooperative and affect normal Appearance: appropriate Results Lab / Micro Data Result Diagrams: 02/06/22 10:30 02/06/22 10:30 Labs: Laboratory Results - last 24 hr 02/06/22 10:30: WBC 13.0 H, RBC 5.18, Hgb 15.0, Hct 46.7, MCV 90.2, MCH 29.0, MCHC 32.1, RDW Std Deviation 50.1 H, RDW Coeff of Demar 15.0 H, Plt Count 275, MPV 9.7, Immature Gran % (Auto) 0.500, Neut % (Auto) 86.1 H, Lymph % (Auto) 4.0 L, [place] % (Auto) 8.5, Eos % (Auto) 0.7, Baso % (Auto) 0.2, Absolute Neuts (auto) 11.2 H, Absolute Lymphs (auto) 0.52 L, Nucleated RBC % 0 02/06/22 10:30: Sodium 138, Potassium 4.1, Chloride 104, Carbon Dioxide 27.0, Anion Gap 7, BUN 21 H, Creatinine 1.25, Estim Creat Clear Calc 47.74, Est GFR (MDRD) Af Amer 72, Est GFR (MDRD) Non-Af 60, BUN/Creatinine Ratio 16.8, Glucose 103, Calcium 9.1, Total Bilirubin 0.70, AST 21, ALT 27, Alkaline Phosphatase 40 L, Troponin I High Sens 3, Total Protein 7.5, Albumin 3.8, Globulin 3.7, Albumin/Globulin Ratio 1.0 02/06/22 10:30: Lactic Acid 1.0 ABG Data ABG results: ABG 02/06/22 10:51 Specimen Type ART Sample Site R Radial pH 7.44 Bicarbonate Actual 22.2 Total CO2 23 Base Excess -2 O2 Saturation 94 L O2 % 28 ABG pCO2 32.7 L ABG pO2 67 L O2 Delivery Device Cannula Radiology Impression Chest X-Ray 02/06/22 11:00 IMPRESSION: Hyperinflation. The lungs are clear. Electronically Signed: Isael Abdi MD at 11:32 EDT , Assessment & Plan Assessment/Plan (1) Acute respiratory failure with hypoxia: (2) Aspiration pneumonitis: PLAN: 1. Acute respiratory failure with hypoxia secondary to aspiration pneumonitis -Admit to PCU -Sputum culture ordered -Oxygen per protocol, currently on 3 L nasal cannula oxygen -CBC and BMP ordered daily -Urine strep pneumonia and urine Legionella ordered -Scheduled DuoNebs and as needed albuterol nebulizer treatments ordered -Patient received 1 dose of Zithromax and Unasyn in ER, patient ordered Zosyn and azithromycin inpatient -Normal saline 100 mL/h, patient hypotensive on presentation however patient states that this is normal for him 2. Hyperlipidemia -Continue fenofibrate and pravastatin 3. BPH -Continue tamsulosin 4. CAD status post stent -Continue amiodarone -Patient not currently on any anticoagulation or antiplatelet 5. COPD -Continue montelukast -Tiotropium on hold -Patient receiving scheduled DuoNeb nebulizer treatments as well as as needed albuterol treatments DVT prophylaxis-subcu heparin This patient was seen by Maria D Sims, BRAULIO-C under the supervision of Dr. Taveras. 29 minutes spent in clinical coordination of patient's plan of care. Documented by User: Dr. Scott Taveras, 02/06/22 19:44 HPI - General General Date of Admission: 02/06/22 [facility] Medical History Acute upper respiratory infection Anxiety and depression Aortic aneurysm of unspecified site without mention of rupture Atherosclerotic heart disease of [place] coronary artery without angina pectoris BPH (benign prostatic hyperplasia) CKD (chronic kidney disease), stage III COPD (chronic obstructive pulmonary disease) Dizziness and giddiness Essential (primary) hypertension Former smoker Former tobacco use GERD (gastroesophageal reflux disease) Hyperlipidemia IBS (irritable bowel syndrome) Irregular heart beat Multiple premature ventricular complexes 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) Pneumonia Home Medications albuterol sulfate 1 puff INHALATION Q4H PRN PRN 01/25/14 [History Last Taken 3 Months Ago ~08/05/19] tiotropium bromide 1 puff INHALATION DAILY 01/25/14 [History Last Taken 09/05/21] pantoprazole 40 mg PO DAILY 06/11/17 [History Last Taken 09/05/21] calcium carbonate 600 mg PO DAILY 11/05/19 [History Last Taken 09/05/21] montelukast 10 mg PO DAILY 11/05/19 [History Last Taken 09/05/21] siwqpqen-fff-DL-lycopen-lutein 1 ea PO DAILY 11/05/19 [History Last Taken 09/05/21] pravastatin 80 mg PO QHS tab 11/06/19 [Rx Last Taken 09/05/21] amiodarone 200 mg tablet 100 mg PO DAILY #45 tab 03/09/21 [Rx Last Taken 09/05/21] cholecalciferol (vitamin D3) 25 mcg (1,000 unit) tablet 500 unit PO DAILY tab 03/16/21 [History Last Taken 09/05/21] fenofibrate nanocrystallized 145 mg tablet 145 mg PO DAILY tab 03/16/21 [History Last Taken 09/05/21] tamsulosin 0.4 mg capsule 0.4 mg PO DAILY cap 03/16/21 [History Last Taken 09/05/21] temazepam 15 mg capsule 15 mg PO QHS cap 03/16/21 [History Last Taken 09/05/21] Allergy/AdvReac Type Severity Reaction Status Date / Time dog dander Allergy Other Verified 02/06/22 09:51 Family History Unknown No problems noted. Daughter Hypertension Surgical History H/O right coronary artery stent placement (09/07/09) History of left heart catheterization (02/17/19) History of right knee surgery Social History household members: spouse Smoking Status: Former smoker how long ago did patient quit smokin years ago alcohol intake: current alcohol intake frequency: a few times a week Alcohol type: beer substance use type: does not use caffeine: Yes Type: coffee Number of servings: 20 Results Lab / Micro Data Result Diagrams: 02/06/22 10:30 02/06/22 10:30 Charges/Coding Addendum Addendum: Patient was seen and examined independently of Miley Sims, he came to the ER today at [facility] with complaints of increasing shortness of breath since yesterday, patient was eating [place] food and choked on some food, he then afterwards gradually became short of breath at home, he did not come to the ER for evaluation however as his had oxygen tanks at home and he just placed himself on oxygen according to his pulse oximetry. Patient states his pulse ox last night was 78 on room air. Patient is not normally on any oxygen at home although he does have a history of significant COPD. Patient has a history of dysphagia, he did not relate this to the emergency room doctor today, the last time he was in the hospital he evidently was seen by speech therapy who recommended a modified diet including thickened liquids-patient refuses to go along with this diet and will not agree to changing of his diet. On examination he appeared in good health and spirits. Vital signs as documented. Skin warm and dry and without overt rashes. Neck without JVD, neck was supple, trachea midline, thyroid was normal. Lungs clear bilaterally, normal air movement was noted. Heart exam notable for regular rhythm, normal sounds and absence of murmurs, rubs or gallops. Abdomen unremarkable and without evidence of organomegaly, masses, or abdominal aortic enlargement. Bowel sounds are present, abdomen is not distended. Extremities nonedematous, no cyanosis was noted, no clubbing was noted. Neuro: Cranial nerves II through XII are grossly intact, no focal motor deficits were noted, sensation to light touch and pinprick intact, motor exam 5/5 throughout. Psych: Patient is alert and oriented x3, he does not appear anxious or depressed, he does not appear agitated. Patient required oxygen at 4 L to maintain his pulse ox above 90%, patient's blood pressure dipped in the emergency room and he was given fluids, labs were obtained, a slightly elevated white blood cell count at 13 was noted, patient's chemistry profile was unremarkable, and his chest x-ray showed no acute disease. It was felt that the patient had aspiration pneumonitis, he was given IV antibiotics and he was admitted to PCU. Impression: #1 aspiration pneumonitis-patient will be maintained on Zosyn and Zithromax #2 acute hypoxic respiratory failure-patient's pulse ox will be monitored, oxygen will be weaned if possible #3 COPD-patient quit smoking approximately 12 years ago, he states his last lung function test that were performed by Dr. Leslie indicated that he had regained some of his lung function from years before. Patient will be maintained on DuoNeb aerosols #4 oropharyngeal dysphagia-probably chronic in nature-patient is totally noncompliant with his diet, I do not feel that it would be advantageous to have speech therapy see the patient as he would not follow any dietary recommendations according to him. Patient states he has a pocket in his throat, he states that occasionally he will cough up mucus. #5 noncompliance with medical treatment-complicates prognosis, care, and recovery. #6 hyperlipidemia-patient is on a statin and fenofibrate #7 essential hypertension-patient will remain on his present medications #8 coronary artery disease-stable at this time, patient has a history of coronary artery stent placement in the past I have reviewed Miley Sims's history and physical including her medical assessment and plan of care and with the above additions endorse it. Total clinical time spent by myself addressing the patient's medical issues, reviewing all of the data, and collaborating with the patient's care team: 44 minutes Visit Charges Inpatient E&M: [id number] Init Hosp L3
--- NOTE | 2022-02-06 12:04 | NURSING ---
PCU TERELETSKY ACUTE RESP FAILURE WITH HYPOXIA, ASPIRATION PNEUMONITIS
[2022-02-06] MEDS: 0.9% Normal Saline 1,000 ML 100 ML IV (13:27)
[2022-02-06] MEDS: Ipratropium/Albuterol Sulfate 3 ML AMPUL.NEB INHALATION ×2 (14:14→21:51)
[2022-02-06] MEDS: Tamsulosin HCl 0.4 MG Capsule PO (16:47)
[2022-02-06] MEDS: Pravastatin 80 MG Tablet PO (21:28)
[2022-02-06] MEDS: Heparin Injection (Vial) 5,000 UNIT/ML VIAL 5000 UNIT SC (21:29)
[2022-02-07 02:00] VITALS: PULSE 71
[2022-02-07] MEDS: Acetaminophen 325 MG Tablet 650 MG PO (02:50)
[2022-02-07 03:18] VITALS: BP 108/58; PULSE 71; RESP 18; TEMP 37.2; O2SAT 96
[2022-02-07 06:57] LABS: Absolute Lymphocyte Count 0.81 X10^3/uL (0.83-4.51); Absolute Neutrophil Count 7.4 X10^3/uL (2.0-7.7); Basophil# 0.03 X10^3/uL; Basophil% 0.3 % (0-1); Eosinophil# 0.12 X10^3/uL; Eosinophils% 1.2 % (0-5); Hematocrit 38.5 % (40-54); Hemoglobin 12.3 g/dL (13.0-16.5); Lymphocyte # 0.81 X10^3/ul (0.83-4.51); Lymphocyte % 8.4 % (19-41); Mean Corp Hgb Conc 31.9 g/dL (32-36); Mean Corpuscular Hgb 29.1 pg (27.0-32.0); Mean Corpuscular Volume 91.2 fL (80-94); Mean Platelet Vol. 10.2 fl (6.2-12.0); Monocyte# 1.24 X10^3/uL; Monocyte% 12.9 % (0-10); NRBC Flagged by Analyzer 0 % (0-5); Neutrophil # 7.39 X10^3/uL (2.7-7.7); Neutrophil % 76.8 % (47-70); Platelet Count 260 K/mm3 (150-450); RBC Distribution Width CV 15.4 % (11.6-14.6); RBC Distribution Width SD 51.5 fl (35.1-43.9); Red Blood Count 4.22 M/mm3 (4.6-6.2); White Blood Count 9.6 K/mm3 (4.4-11.0)
[2022-02-07 07:00] VITALS: PULSE 62
[2022-02-07 07:18] LABS: Anion Gap 7 (5-15); BUN 15 mg/dL (7-18); BUN/Creat Ratio 14.6 RATIO (10-20); Calcium,Total 8.3 mg/dL (8.5-10.1); Chloride 114 mmol/L (98-107); Creatinine, Serum 1.03 mg/dL (0.70-1.30); EST Glomerular Filtration Rate 75 mL/min (>60); Est Glom Filt Rate - Afr Amer 91 mL/min (>60); Estimated Creatinine Clearance 57.94 ml/min; Glucose 100 mg/dL (74-106); Potassium 3.9 mmol/L (3.5-5.1); Sodium Level 145 mmol/L (136-145)
[2022-02-07] MEDS: Ipratropium/Albuterol Sulfate 3 ML AMPUL.NEB INHALATION (07:38)
[2022-02-07 07:40] VITALS: PULSE 86; RESP 18; O2SAT 90
--- NOTE | 2022-02-07 08:00 | RAD_ITS ---
STUDY: X-RAY CHEST REASON FOR EXAM: Male, 77 years old. Pneumonitis. TECHNIQUE: PA and lateral views of the chest. COMPARISON: Comparison is made with prior study dated 02/06/2022. FINDINGS: EKG electrodes are seen. There is hyperinflation of the lungs consistent with chronic obstructive lung disease (COPD). There is no demonstrated pleural abnormality. Normal size heart. Normal mediastinum and tremayne. Normal visualized pulmonary arteries. There is atherosclerotic calcification of the aortic arch with tortuosity. There is demineralization of the osseous structures. Normal visualized ribs, clavicles, and shoulders. There is no demonstrated abnormality of the visualized soft tissue structures of the upper abdomen. RAD/Chest PA and Lateral IMPRESSION: Hyperinflation. The lungs are clear. Electronically Signed: Isael Abdi MD at 14:20 EDT ,
[2022-02-07 08:32] VITALS: BP 106/62; PULSE 71; RESP 17; TEMP 36.6; O2SAT 97
[2022-02-07] MEDS: Fenofibrate 145 MG Tablet PO (08:35)
[2022-02-07] MEDS: Montelukast 10 MG Tablet PO (08:35)
[2022-02-07] MEDS: Pantoprazole Sodium 40 MG Tablet PO (08:35)
[2022-02-07] MEDS: Amiodarone 200 MG Tablet 100 MG PO (08:36)
--- NOTE | 2022-02-07 10:20 | CASEMGMT ---
RN CM [employer] CM to room to meet with patient for initial transition planning/care coordination assessment. ROSY LONG introduced self and role at [facility]. Pt voices understanding and consents to assessment at this time. Pt sitting up in chair in no distress at this time. Pt is A/O at this time and answers all questions appropriately. Care providers, pharmacy, and demographics verified/updated at this time. PCP: Dr Hamlin Specialists: Dr Leslie--pulmonology, Dr Hoffman-cardiology, Dr Price-urology, Dr Combs-podiatry, Dr Howard-ENT Preferred Pharmacy: [facility] Insurance: MCR, Prescription Benefit: Yes, Living Will/HPOA: Has both LW and HPOA, who is his , Mari LNOK: , Mari Living Arrangements: Lives w/his in one-story home w/basement. Laundry is on main floor. Pt reports some difficulty w/the stairs, but he is able to manage them. 3 steps to enter home. Pt is independent w/ADL's and does most of the home mgmt tasks, as his has medical issues and back problems. Pt manages his own medications and appts. Transportation: Pt states drives self and states no transportation concerns at this time. also drives. DME: States has the following DME: rails in shower, shower chair, nebulizer, and pulse ox. Has available, but does not use: cane, walker, scooter. Does not have home O2. Pt states, if he qualifies for Home O2, he would like to use [facility], as that is where his gets her oxygen. Pt denies needs for further DME at this time. HHC/SNF:No hx of either. Denies need for HHC and no needs identified. Pt wishes to return home and states has no concerns with going home at time of discharge. Pt states he used to smoke, but quit about 12 yrs ago. CM to follow for home oxygen needs and any further discharge planning/needs. Pt voices no further concerns/needs at this time. Advised pt to ask for CM if any further questions/concerns/needs arise. Voices understanding. PLAN: Home CM to follow for oxygen needs @ discharge. Geensis MONTANA RN, CM
[2022-02-07 10:47] VITALS: O2SAT 87; O2SAT 88; O2SAT 89; O2SAT 90; O2SAT 92
--- NOTE | 2022-02-07 11:00 | CASEMGMT ---
Addendum entered by Trell Clark 02/07/22 12:34: Portable oxygen tank has been delivered to pt's room by [facility]. Pt aware to call [facility] once he is home to arrange for concentrator and other portable tanks to be delivered. Discharge summary faxed to [facility] at this time. Original Note: ROSY LONG NOTE: Pt qualifies for O2 @ 3 l/m w/exertion. Script obtained from Manda Silvestre NP, and faxed to [facility]. Call placed to [facility] to notify of order. Portable oxygen tank to be delivered w/ETA in less than 2 hrs. Sarah GALLEGOS, aware. Genesis MONTANA RN CM
--- NOTE | 2022-02-07 11:39 | PCM.DC ---
Discharge Instructions Diet Discharge Diet: Soft diet Activity Discharge Activity: Return to Normal Activity Dressing / Incision Call your doctor if you observe: Fever of 101 or Higher, Shortness of breath, Dizziness and Chest pain Follow Up Care Test Results: Test results from this visit will be discussed in further detail at your follow-up appointment, if applicable. Discharge Plan Admission Admit Date/Time: 02/06/22 11:29 Primary Reason for Your Visit: Hypoxia, aspiration pneumonia Attending Provider: Chaim Morgan Primary Care Provider: Yen Hamlin Consulting Providers: Scott Taveras Discharge Orders/Prescriptions Prescriptions: New amoxicillin-pot clavulanate 875-125 mg tablet 1 tab PO BID Qty: 14 RF: 0 Continued fenofibrate nanocrystallized 145 mg tablet 145 mg PO DAILY RF: 0 temazepam 15 mg capsule 15 mg PO QHS RF: 0 tamsulosin 0.4 mg capsule 0.4 mg PO DAILY RF: 0 cholecalciferol (vitamin D3) 25 mcg (1,000 unit) tablet 500 unit PO DAILY RF: 0 albuterol sulfate 1 PUFF inhaler 1 puff INHALATION Q4H PRN PRN (Reason: Shortness Of Breath) RF: 0 tiotropium bromide 1 PUFF inhaler 1 puff INHALATION DAILY RF: 0 pantoprazole 40 MG tablet,delayed release (DR/EC) 40 mg PO DAILY RF: 0 calcium carbonate 600 MG tablet 600 mg PO DAILY RF: 0 montelukast 10 MG tablet 10 mg PO DAILY RF: 0 ltzmdctx-qoq-HQ-lycopen-lutein 1 EACH tablet 1 ea PO DAILY RF: 0 pravastatin 80 MG tablet 80 mg PO QHS RF: 0 amiodarone 200 mg tablet 100 mg PO DAILY Qty: 45 RF: 3 Referrals / Follow Up: Yen Hamlin DO [Primary Care Provider] - In 1 Week Humberto Leslie MD [STAFF PHYSICIAN] - In 1 Week Disposition Disposition (needs filled in before D/C Order can be placed): Home, Self Care
--- NOTE | 2022-02-07 11:46 | DS.PCM_ITS ---
Documented by User: Manda Silvestre COMMERCIAL TIRE SERVICE TECHNICIAN, COMMERCIAL TIRE SERVICE TECHNICIAN-C 02/07/22 11:56 Providers Date of Admission: 02/06/22 Date of Discharge: 02/07/22 Primary Care Physician: Dr. Yen Hamlin DO Reason For Visit: ASPIRATION PNEUMONIA Diagnosis Discharge Diagnosis (1) Acute respiratory failure with hypoxia: Status: Acute Code(s): J96.01 - Acute respiratory failure with hypoxia (2) Aspiration pneumonitis: Status: Acute Code(s): J69.0 - Pneumonitis due to inhalation of food and vomit Medications at Discharge Home Medications albuterol sulfate 1 puff INHALATION Q4H PRN PRN 01/25/14 tiotropium bromide 1 puff INHALATION DAILY 01/25/14 pantoprazole 40 mg PO DAILY 06/11/17 calcium carbonate 600 mg PO DAILY 11/05/19 montelukast 10 mg PO DAILY 11/05/19 ghajgufz-bhu-SW-lycopen-lutein 1 ea PO DAILY 11/05/19 pravastatin 80 mg PO QHS tab 11/06/19 amiodarone 200 mg tablet 100 mg PO DAILY #45 tab 03/09/21 cholecalciferol (vitamin D3) 25 mcg (1,000 unit) tablet 500 unit PO DAILY tab 03/16/21 fenofibrate nanocrystallized 145 mg tablet 145 mg PO DAILY tab 03/16/21 tamsulosin 0.4 mg capsule 0.4 mg PO DAILY cap 03/16/21 temazepam 15 mg capsule 15 mg PO QHS cap 03/16/21 amoxicillin-pot clavulanate 1 tab PO BID #14 tab 02/07/22 Hospital Course Operations None Procedures None Summary of Care Provided Hospital Course: Patient is a 77-year-old male admitted 02/06/2022 due to shortness of breath. 1. Acute hypoxic respiratory failure secondary to aspiration pneumonitis-IV Zosyn during admission. Discharged on Augmentin to complete course. Patient improved quicker than expected, denies shortness of breath/fever. Stable at time of discharge and requesting to return home. Leukocytosis fever, resolved. Oxygen stable at rest on room air, will require 4 L supplemental oxygen with exertion. He is ambulatory in the home. Follow-up with PCP and pulmonary medicine at discharge. 2. Oropharyngeal dysphagia-previously documented to be noncompliant with dietary modifications. Patient declines outpatient follow-up with speech therapy. Recommend mechanical soft diet. At risk for recurrent aspiration. Follow-up with pulmonary medicine. 3. CAD with history of PCI-not on aspirin? Continue statin. Continue follow-up with cardiology. 4. 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 Follows with cardiology. 5. Chronic COPD-continue home inhaler/aerosol regimen. Continue outpatient follow-up with pulmonary medicine. Follows with Dr. Leslie. 6. Hyperlipidemia-on statin, fenofibrate. 7. BPH-continue tamsulosin. 8. GERD- continue PPI. 9. Former tobacco use-quit 12 years ago. Encouraged continued cessation. Patient seen and examined prior to discharge. Physical assessment as noted below. Patient is stable for discharge with follow up recommendations as noted above. This patient was seen by JILL Isaacs under the supervision of Dr. Morgan. Physical Exam Const alert, oriented x3 and no apparent distress Orientation / Consciousness: awake, oriented to person, oriented to place and oriented to time HEENT normocephalic and moist oral mucous membranes Eyes PERRL, EOMs intact bilaterally and conjunctivae normal Neck no lymphadenopathy Resp clear to auscultation bilaterally Auscultation: diminished lung sounds Cardio regular rate, regular rhythm and no murmurs Peripheral Pulses: pulses 2+ throughout GI normal to inspection, nondistended, normoactive bowel sounds, non-tender and non-distended Extremity normal to inspection Skin no rashes or lesions noted Lesions: no lesions Rashes: no rashes Trauma: no lacerations or abrasions Neuro CN's II-XII intact bilaterally, no focal motor deficits, no sensory deficits noted and deep tendon reflexes 2+ bilaterally Psych mental status grossly normal and affect normal Weight / BMI Weight Weight: 160 lb 14.999 oz Body Mass Index (BMI) 25.2 ABG / Lab / Microbiology Data Result Diagrams: 02/07/22 06:05 02/07/22 06:05 Laboratory: Laboratory Results - last 24 hr 02/07/22 06:05: WBC 9.6, RBC 4.22 L, Hgb 12.3 L, Hct 38.5 L, MCV 91.2, MCH 29.1, MCHC 31.9 L, RDW Std Deviation 51.5 H, RDW Coeff of Demar 15.4 H, Plt Count 260, MPV 10.2, Immature Gran % (Auto) 0.400, Neut % (Auto) 76.8 H, Lymph % (Auto) 8.4 L, [place] % (Auto) 12.9 H, Eos % (Auto) 1.2, Baso % (Auto) 0.3, Absolute Neuts (auto) 7.4, Absolute Lymphs (auto) 0.81 L, Nucleated RBC % 0 02/07/22 06:05: Sodium 145, Potassium 3.9, Chloride 114 H, Carbon Dioxide 24.0, Anion Gap 7, BUN 15, Creatinine 1.03, Estim Creat Clear Calc 57.94, Est GFR (MDRD) Af Amer 91, Est GFR (MDRD) Non-Af 75, BUN/Creatinine Ratio 14.6, Glucose 100, Calcium 8.3 L Microbiology: Microbiology 02/06/22 22:00 Sputum, Expectorated/Coughed Gram Stain - Final 02/06/22 22:00 Sputum, Expectorated/Coughed Respiratory Culture - Preliminary Culture exhibits no growth. 02/06/22 13:27 Urine, Random Streptococcus pneumoniae Antigen (M - Final 02/06/22 13:27 Urine, Random Legionella Antigen - Final ABG: ABG 02/06/22 10:51 O2 % COMMERCIAL TIRE SERVICE TECHNICIAN Liter Flow 4.0 D/C Instructions Discharge Diet: Soft diet Call your doctor if you observe: Fever of 101 or Higher, Shortness of breath, Dizziness and Chest pain Meaningful Use Info Meaningful Use Diagnoses (Choose all that apply): None applicable Discharge Plan Admission Admit Date/Time: 02/06/22 11:29 Primary Reason for Your Visit: Hypoxia, aspiration pneumonia Attending Provider: Chaim Morgan Primary Care Provider: Yen Hamlin Consulting Providers: Scott Taveras Discharge Orders/Prescriptions Prescriptions: New amoxicillin-pot clavulanate 875-125 mg tablet 1 tab PO BID Qty: 14 RF: 0 Continued fenofibrate nanocrystallized 145 mg tablet 145 mg PO DAILY RF: 0 temazepam 15 mg capsule 15 mg PO QHS RF: 0 tamsulosin 0.4 mg capsule 0.4 mg PO DAILY RF: 0 cholecalciferol (vitamin D3) 25 mcg (1,000 unit) tablet 500 unit PO DAILY RF: 0 albuterol sulfate 1 PUFF inhaler 1 puff INHALATION Q4H PRN PRN (Reason: Shortness Of Breath) RF: 0 tiotropium bromide 1 PUFF inhaler 1 puff INHALATION DAILY RF: 0 pantoprazole 40 MG tablet,delayed release (DR/EC) 40 mg PO DAILY RF: 0 calcium carbonate 600 MG tablet 600 mg PO DAILY RF: 0 montelukast 10 MG tablet 10 mg PO DAILY RF: 0 bpbfwugo-iqz-PV-lycopen-lutein 1 EACH tablet 1 ea PO DAILY RF: 0 pravastatin 80 MG tablet 80 mg PO QHS RF: 0 amiodarone 200 mg tablet 100 mg PO DAILY Qty: 45 RF: 3 Referrals / Follow Up: Yen Hamlin DO [Primary Care Provider] - In 1 Week (02/18/22 1:30pm) Humberto Leslie MD [STAFF PHYSICIAN] - In 1 Week Disposition Disposition (needs filled in before D/C Order can be placed): Home, Self Care Documented by User: Dr. Chaim Morgan MD 02/07/22 12:48 Providers Date of Admission: 02/06/22 Reason For Visit: ASPIRATION PNEUMONIA Medications at Discharge Home Medications albuterol sulfate 1 puff INHALATION Q4H PRN PRN 01/25/14 tiotropium bromide 1 puff INHALATION DAILY 01/25/14 pantoprazole 40 mg PO DAILY 06/11/17 calcium carbonate 600 mg PO DAILY 11/05/19 montelukast 10 mg PO DAILY 11/05/19 wpyyionb-erl-ES-lycopen-lutein 1 ea PO DAILY 11/05/19 pravastatin 80 mg PO QHS tab 11/06/19 amiodarone 200 mg tablet 100 mg PO DAILY #45 tab 03/09/21 cholecalciferol (vitamin D3) 25 mcg (1,000 unit) tablet 500 unit PO DAILY tab 03/16/21 fenofibrate nanocrystallized 145 mg tablet 145 mg PO DAILY tab 03/16/21 tamsulosin 0.4 mg capsule 0.4 mg PO DAILY cap 03/16/21 temazepam 15 mg capsule 15 mg PO QHS cap 03/16/21 amoxicillin-pot clavulanate 1 tab PO BID #14 tab 02/07/22 Hospital Course Operations None Summary of Care Provided Minutes Spent on Discharge: 40 Hospital Course: This patient was seen in conjunction with LEONID Isaacs . I have independently interviewed and examined the patient and reviewed pertinent historical, laboratory, and other data. Please refer to JILL Isaacs note for details of this patient's presentation, findings, and recommendations. I have reviewed JILL Isaacs note and concur with documented findings. In brief, patient is a 77-year-old gentleman admitted with increasing shortness of breath after choking on his food. There was a suspicion of aspiration pneumonia. Initial chest x-ray obtained was negative for acute pneumonia however given patient presentation patient was admitted to monitored bed for further management. Was started on antibiotics per protocol. Patient was expected to stay for at least 2 midnight given his presentation however he did experience right rapid improvement more than expected at the time of his admission. He was therefore discharged a day after his admission in stable condition Physical Examination: GENERAL: cooperative HEENT: Atraumatic; EYES; Anicteric, Normal Conjunctiva NECK; supple, normal thyroid, RESPIRATORY: Diminished to auscultation CARDIOVASCULAR: Regular S1 S2, GI: soft, normoactive bowel sounds, : No Renal angle tenderness; EXTREMITIES: No edema, no clubbing, MUSCULOSKELETAL: no muscle wasting NEURO: Awake; no lateralizing signs. SKIN: No Rash PSYCH; Flat affect Hospital course; as documented above Total time spent by myself and the advanced practice practitioner evaluating patient, reviewing labs, subsequent management decisions, discussion with patient as well as other providers 40 minutes ( 25 of which was spent by myself) ABG / Lab / Microbiology Data Result Diagrams: 02/07/22 06:05 02/07/22 06:05 Discharge Plan Admission Admit Date/Time: 02/06/22 11:29 Primary Reason for Your Visit: Hypoxia, aspiration pneumonia Attending Provider: Chaim Moragn Primary Care Provider: Yen Hamlin Consulting Providers: Scott Taveras Discharge Orders/Prescriptions Prescriptions: New amoxicillin-pot clavulanate 875-125 mg tablet 1 tab PO BID Qty: 14 RF: 0 Continued fenofibrate nanocrystallized 145 mg tablet 145 mg PO DAILY RF: 0 temazepam 15 mg capsule 15 mg PO QHS RF: 0 tamsulosin 0.4 mg capsule 0.4 mg PO DAILY RF: 0 cholecalciferol (vitamin D3) 25 mcg (1,000 unit) tablet 500 unit PO DAILY RF: 0 albuterol sulfate 1 PUFF inhaler 1 puff INHALATION Q4H PRN PRN (Reason: Shortness Of Breath) RF: 0 tiotropium bromide 1 PUFF inhaler 1 puff INHALATION DAILY RF: 0 pantoprazole 40 MG tablet,delayed release (DR/EC) 40 mg PO DAILY RF: 0 calcium carbonate 600 MG tablet 600 mg PO DAILY RF: 0 montelukast 10 MG tablet 10 mg PO DAILY RF: 0 iyelkadb-nsr-TH-lycopen-lutein 1 EACH tablet 1 ea PO DAILY RF: 0 pravastatin 80 MG tablet 80 mg PO QHS RF: 0 amiodarone 200 mg tablet 100 mg PO DAILY Qty: 45 RF: 3 Referrals / Follow Up: Yen Hamlin DO [Primary Care Provider] - In 1 Week (02/18/22 1:30pm) Humberto Leslie MD [STAFF PHYSICIAN] - In 1 Week Disposition Disposition (needs filled in before D/C Order can be placed): Home, Self Care Charges/Coding Visit Charges Inpatient E&M: 45168 Disch Hosp Hospital Course Imaging Results Imaging Results: 02/07/22 08:00 Chest PA and Lateral [RAD] Timed Operations None
== END 2022-02-07 13:17 | disposition home or self-care (01) | DRG 177 ==
LOC: ED 11:56 → PCU 12:07
PROVIDERS: Admitting Provider Internal Medicine; Emergency Provider Emergency Medicine; PCP Internal Medicine; Visit Provider Internal Medicine
DX: J69.0 Pneumonitis due to inhalation of food and vomit (principal); J96.01 Acute respiratory failure with hypoxia; J44.9 Chronic obstructive pulmonary disease, unspecified; N18.30 Chronic kidney disease, stage 3 unspecified; E78.5 Hyperlipidemia, unspecified; I95.9 Hypotension, unspecified; I12.9 Hypertensive chronic kidney disease with stage 1 through stage 4 chronic kidney disease, or unspecified chronic kidney disease; I25.10 Atherosclerotic heart disease of native coronary artery without angina pectoris; K21.9 Gastro-esophageal reflux disease without esophagitis; N40.0 Benign prostatic hyperplasia without lower urinary tract symptoms; I25.2 Old myocardial infarction; R13.12 Dysphagia, oropharyngeal phase; Z91.11 Patient's noncompliance with dietary regimen; Z87.891 Personal history of nicotine dependence; Z95.5 Presence of coronary angioplasty implant and graft
CPT/HCPCS: 36415; 36600; 71046; 80048; 80053; 82803; 83605; 84484; 85025; 87040; 87070; 87205; 87449; 93005; 94640; 94667; 99251; 99285; J7030; J7050; A4216; G0463; J0295

== ENCOUNTER → 2022-03-12 | Outpatient (CLI) | payer MEDICARE, OTHER, SELFPAY ==
--- NOTE | 2022-03-12 09:00 | RAD_ITS ---
STUDY: X-RAY CHEST REASON FOR EXAM: Male, 77 years old. Fever and cough, possible aspiration TECHNIQUE: PA and lateral views of the chest. COMPARISON: 02/07/2022 FINDINGS: Lungs are mildly hyperexpanded with chronic interstitial changes. Subtle new opacification in the right mid lateral lung field could represent an early infiltrate or atelectasis. Follow-up recommended to assure resolution. Normal size heart. Normal mediastinum and tremayne. Normal visualized pulmonary arteries. There is atherosclerotic calcification of the aortic arch with tortuosity. Normal visualized thoracic spine. Normal visualized ribs, clavicles, and shoulders. There is no demonstrated abnormality of the visualized soft tissue structures of the upper abdomen. RAD/Chest PA and Lateral IMPRESSION: Mildly hyperexpanded lungs with new subtle opacification in the mid right lateral lung field since a previous study in FEBRUARY. Findings likely atelectasis or early infiltrate. Follow-up recommended to assure resolution Electronically Signed: Te Sanders MD at 9:26 EDT ,
== END | disposition home or self-care (01) ==
LOC: MTRAD 08:49
PROVIDERS: PCP Internal Medicine; Referring Provider Internal Medicine; Visit Provider Internal Medicine
DX: R50.9 Fever, unspecified (principal); J69.0 Pneumonitis due to inhalation of food and vomit; I70.0 Atherosclerosis of aorta; R05.9 Cough, unspecified
CPT/HCPCS: 71046

== ENCOUNTER 2022-07-19 13:25 | Emergency (ER) | payer MEDICARE, OTHER, SELFPAY ==
[2022-07-19 13:26] VITALS: BP 147/80; PULSE 75; RESP 16; TEMP 36.2; O2SAT 98; BMI 25.0
--- NOTE | 2022-07-19 13:55 | EX.ED.UPPERE ---
HPI History of Present Illness HPI Narrative: Patient presents with laceration to his right thumb that occurred 4 days ago. Patient states he was cleaning a paper shredder when he accidentally dropped the top of the stridor and it fell. Patient went to catch it and he cut the back of his right thumb on one of the blades. Patient states he has been keeping the area clean. Patient states he applied new skin. Patient states that every time he bends his thumb it opens up and starts bleeding again. Patient denies any paresthesias or weakness. Patient thinks his last tetanus shot was within the last 10 years but does not know for sure. Chief Complaint: Laceration Informant: patient Occured/Mechanism Comment: Patient dropped a paper shredder and was cut by one of the blades on the back of his thumb 4 days ago Onset/Context/Timing Onset: Days (4) Context: Sudden Onset Timing: Continuous Location: Dorsal aspect right thumb over IP joint Current Severity: Gone Worsened by: Bending thumb Relieved by: Nothing Associated Symptoms Associated Symptoms: Negative for Parasthesia, Weakness or Loss of Funtion Narrative Tetanus Immunization: Unknown PFSH PFS Medical History Acute respiratory failure with hypoxia Acute upper respiratory infection Anxiety and depression Aortic aneurysm of unspecified site without mention of rupture Aspiration pneumonitis Atherosclerotic heart disease of [place] coronary artery without angina pectoris BPH (benign prostatic hyperplasia) CKD (chronic kidney disease), stage III COPD (chronic obstructive pulmonary disease) Dizziness and giddiness Essential (primary) hypertension Former smoker Former tobacco use GERD (gastroesophageal reflux disease) Hyperlipidemia IBS (irritable bowel syndrome) Irregular heart beat Multiple premature ventricular complexes 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) Pneumonia Home Medications albuterol sulfate 90 mcg/actuation aerosol inhaler 1 puff inhalation Q4H PRN PRN Shortness Of Breath 01/25/14 [History Last Taken 3 Months Ago ~08/05/19] tiotropium bromide 18 mcg capsule with inhalation device 1 puff inhalation DAILY breathing 01/25/14 [History Last Taken 09/05/21] pantoprazole 40 mg tablet,delayed release 40 mg PO DAILY gerd 06/11/17 [History Last Taken 09/05/21] calcium carbonate 600 mg calcium (1,500 mg) tablet 600 mg PO DAILY supplement 02/28/20 [History Last Taken 09/05/21] montelukast 10 mg tablet 10 mg PO DAILY breathing 11/05/19 [History Last Taken 09/05/21] olchysag-cdw-anfrl acid 300 mcg-lycopene 600 mcg-lutein 300 mcg tablet 1 ea PO DAILY supplement 11/05/19 [History Last Taken 09/05/21] pravastatin 80 mg tablet 80 mg PO QHS 11/06/19 [Rx Last Taken 09/05/21] cholecalciferol (vitamin D3) 25 mcg (1,000 unit) tablet 500 unit PO DAILY supplement 03/16/21 [History Last Taken 09/05/21] fenofibrate nanocrystallized 145 mg tablet 145 mg PO DAILY cholesterol 03/16/21 [History Last Taken 09/05/21] tamsulosin 0.4 mg capsule 0.4 mg PO DAILY urine flow 03/16/21 [History Last Taken 09/05/21] temazepam 15 mg capsule 15 mg PO QHS sleep 03/16/21 [History Last Taken 09/05/21] amoxicillin 875 mg-potassium clavulanate 125 mg tablet 1 tab PO BID #14 tabs 02/07/22 [Rx Last Taken Unknown] amiodarone 200 mg tablet 100 mg PO DAILY heart #45 tabs 03/04/22 [Rx Last Taken Unknown] Allergy/AdvReac Type Severity Reaction Status Date / Time dog dander Allergy Other Verified 07/19/22 13:27 Family History Unknown No problems noted. Daughter Hypertension Surgical History H/O right coronary artery stent placement (09/07/09) History of left heart catheterization (02/17/19) History of right knee surgery Social History household members: spouse Smoking Status: Former smoker how long ago did patient quit smokin years ago alcohol intake: current alcohol intake frequency: a few times a week Alcohol type: beer substance use type: does not use caffeine: Yes Type: coffee Number of servings: 20 ROS ROS ED Constitutional Constitutional ED: Denies chills or fever(s) Eyes Eyes: Denies blurry vision or change in vision ENT ENT ED: Denies rhinorrhea or sore throat Cardiovascular Cardiovascular: Denies chest pain or palpitations Respiratory/Chest Respiratory/Chest: Reports cough; Denies dyspnea Gastrointestinal Gastrointestinal: Denies nausea or vomiting Genitourinary Genitourinary ED: Denies dysuria or hematuria Musculoskeletal Musculoskeletal: Denies back pain or neck pain Integumentary Denies abscess or rash Neurologic Neurologic: Denies headache(s) or weakness Allergic/Immunologic Allergic/Immunologic ED: Denies mouth swelling or urticaria EXAM Physical Exam Const Vital Signs: 07/19/22 13:26 Temperature 97.2 F L Temperature Source Temporal Pulse Rate 75 Respiratory Rate 16 Blood Pressure 147/80 H Blood Pressure Mean 102 Pulse Ox 98 Oxygen Delivery Method Room Air Positive well nourished and well developed General Appearance ED: well developed and NAD HEENT Reports moist mucous membranes Neck full ROM Extremity Extremity Narrative: There is a 0.5 cm linear laceration over the dorsal aspect of the IP joint of the right thumb. There is mild gapping of the wound margins. There is minimal bleeding. There is no erythema. There is no discharge or drainage. Strength is 5/5 in flexion extension of the IP and MP joints of the right thumb. Sensation was intact to light touch in all digits. Capillary refill is less than 2 seconds in all digits. Neuro oriented x3, CN's II-XII intact bilaterally, moves all extremities, no focal motor deficits and no sensory deficits noted Sensorium / Orientation: alert Motor Exam: strength 5/5 throughout Psych mental status grossly normal MDM MDM MDM Narrative Medical decision making narrative: Since the laceration is 4 days old and is small, I do not feel sutures are necessary at this time. Patient was given a bulky dressing. Patient was given a tetanus booster. Patient was instructed to keep the area clean. Patient was instructed to follow-up with his primary care physician in 5 to 7 days. Patient understood and was agreeable with the plan. All questions were answered. Discharge Plan Triage Chief Complaint: Laceration ED Provider: Michael Comer Dx/Rx/DC Orders Clinical Impression: Laceration of right thumb Instructions: ED Laceration, Old: Not Sutured Prescriptions: No Action fenofibrate nanocrystallized 145 mg tablet 145 mg PO DAILY temazepam 15 mg capsule 15 mg PO QHS tamsulosin 0.4 mg capsule 0.4 mg PO DAILY cholecalciferol (vitamin D3) 25 mcg (1,000 unit) tablet 500 unit PO DAILY albuterol sulfate 1 PUFF inhaler 1 puff INHALATION Q4H PRN PRN (Reason: Shortness Of Breath) tiotropium bromide 1 PUFF inhaler 1 puff INHALATION DAILY pantoprazole 40 MG tablet,delayed release (DR/EC) 40 mg PO DAILY calcium carbonate 600 MG tablet 600 mg PO DAILY montelukast 10 MG tablet 10 mg PO DAILY xvkzodbg-wei-OX-lycopen-lutein 1 EACH tablet 1 ea PO DAILY pravastatin 80 MG tablet 80 mg PO QHS 0RF amoxicillin-pot clavulanate 875-125 mg tablet 1 tab PO BID Qty: 14 0RF amiodarone 200 mg tablet 100 mg PO DAILY Qty: 45 3RF Primary Care Provider: Yen Hamlin Referrals: Yne Hamlin DO [Primary Care Provider] - 5-7 Days Disposition Disposition: Home, Self Care
[2022-07-19] MEDS: Diphth,Pertuss(Acell),Tet Vac 0.5 ML Vial IM (14:26)
[2022-07-19 14:27] VITALS: PULSE 77; RESP 17; O2SAT 98
== END 2022-07-19 14:33 | disposition home or self-care (01) ==
PROVIDERS: Emergency Provider Emergency Medicine; PCP Internal Medicine; Visit Provider Emergency Medicine
DX: S61.011A Laceration without foreign body of right thumb without damage to nail, initial encounter (principal); J44.9 Chronic obstructive pulmonary disease, unspecified; N18.30 Chronic kidney disease, stage 3 unspecified; W26.8XXA Contact with other sharp object(s), not elsewhere classified, initial encounter; I12.9 Hypertensive chronic kidney disease with stage 1 through stage 4 chronic kidney disease, or unspecified chronic kidney disease; I25.10 Atherosclerotic heart disease of native coronary artery without angina pectoris; E78.5 Hyperlipidemia, unspecified; Z87.891 Personal history of nicotine dependence; Z23 Encounter for immunization
CPT/HCPCS: 90471; 90715; 99282

== ENCOUNTER → 2023-05-23 | Outpatient (CLI) | payer MEDICARE, OTHER, SELFPAY | END | disposition home or self-care (01) | LOC: LABSPEC 10:56 | PROVIDERS: PCP Internal Medicine; Referring Provider Internal Medicine Pulmonary Disease; Visit Provider Internal Medicine Pulmonary Disease | DX: R05.9 Cough, unspecified (principal) | CPT/HCPCS: 87070; 87077; 87186; 87205 ==

== ENCOUNTER → 2023-07-04 | Outpatient (CLI) | payer MEDICARE, OTHER, SELFPAY | END | disposition home or self-care (01) | PROVIDERS: PCP Internal Medicine; Visit Provider Internal Medicine Pulmonary Disease | DX: J44.9 Chronic obstructive pulmonary disease, unspecified (principal) | CPT/HCPCS: 87070; 87205 ==

== ENCOUNTER → 2023-07-11 | Outpatient (CLI) | payer MEDICARE, OTHER, SELFPAY ==
--- NOTE | 2023-07-11 10:35 | RAD_ITS ---
STUDY: X-RAY CHEST REASON FOR EXAM: Male, 78 years old. COUGH . Possible aspiration. TECHNIQUE: PA and lateral views of the chest. COMPARISON: Comparison is made with prior study dated March 12, 2022. FINDINGS: There is hyperinflation of the lungs consistent with chronic obstructive lung disease (COPD). There is no demonstrated pleural abnormality. Normal size heart. Normal mediastinum and tremayne. Normal visualized pulmonary arteries. There is atherosclerotic calcification of the aortic arch with tortuosity. There is demineralization of the osseous structures. Normal visualized ribs, clavicles, and shoulders. There is no demonstrated abnormality of the visualized soft tissue structures of the upper abdomen. RAD/Chest PA and Lateral IMPRESSION: Hyperinflation. The lungs are clear. Electronically Signed: Isael Abdi MD at 10:58 EDT ,
== END | disposition home or self-care (01) ==
PROVIDERS: PCP Internal Medicine; Referring Provider Internal Medicine Pulmonary Disease; Visit Provider Internal Medicine Pulmonary Disease
DX: R05.9 Cough, unspecified (principal); R09.02 Hypoxemia
CPT/HCPCS: 71046

== ENCOUNTER → 2023-07-22 | Outpatient (CLI) | payer MEDICARE, OTHER, SELFPAY ==
--- NOTE | 2023-07-22 16:20 | RAD_ITS ---
EXAM: XR SINUSES/PARANASAL COMPLETE, 3 OR MORE VIEWS CLINICAL INDICATION: ALLERGIC RHINITIS TECHNIQUE: Frontal, lateral and [place] views of the sinuses and paranasal structures. COMPARISON: No relevant prior studies available. FINDINGS: BONES/JOINTS: Unremarkable. The regional bones are grossly intact. SINUSES: Unremarkable. No significant mucosal thickening. There are no air-fluid levels. RAD/Sinuses min 3 Views IMPRESSION: Negative sinus series. Electronically Signed: Cedric Lucero MD at 0:33 EST ,
== END | disposition home or self-care (01) ==
LOC: MTRAD 16:15
PROVIDERS: PCP Internal Medicine; Referring Provider Internal Medicine Pulmonary Disease; Visit Provider Internal Medicine Pulmonary Disease
DX: J30.9 Allergic rhinitis, unspecified (principal)
CPT/HCPCS: 70220

== ENCOUNTER → 2023-08-04 | Outpatient (CLI) | payer MEDICARE, OTHER, SELFPAY ==
[2023-08-04 09:04] LABS: Bacteria 0 SEEN /hpf (None Seen); Mucous, Urine 0 SEEN /hpf (<or=2+); Red Blood Cells-Urine 0 SEEN /hpf (0-5); Squamous Epithelial Cells - UA 0 SEEN /hpf (0-5); White Blood Cells 0 SEEN /hpf (0-5)
[2023-08-04 10:33] LABS: Absolute Lymphocyte Count 1.45 X10^3/uL (0.83-4.51); Absolute Neutrophil Count 4.1 X10^3/uL (2.0-7.7); Basophil# 0.03 X10^3/uL; Basophil% 0.4 % (0-1); Eosinophil# 0.15 X10^3/uL; Eosinophils% 2.2 % (0-5); Hematocrit 42.5 % (40-54); Hemoglobin 13.7 g/dL (13.0-16.5); Lymphocyte # 1.45 X10^3/ul (0.83-4.51); Lymphocyte % 21.7 % (19-41); Mean Corp Hgb Conc 32.2 g/dL (32-36); Mean Corpuscular Hgb 29.5 pg (27.0-32.0); Mean Corpuscular Volume 91.4 fL (80-94); Mean Platelet Vol. 10.1 fl (6.2-12.0); Monocyte# 0.87 X10^3/uL; NRBC Flagged by Analyzer 0 % (0-5); Neutrophil # 4.13 X10^3/uL (2.7-7.7); Platelet Count 394 K/mm3 (150-450); RBC Distribution Width CV 15.4 % (11.6-14.6); RBC Distribution Width SD 50.8 fl (35.1-43.9); Red Blood Count 4.65 M/mm3 (4.6-6.2); White Blood Count 6.7 K/mm3 (4.4-11.0)
[2023-08-04 10:41] LABS: Glucose, Dipstick Normal (Normal); Ketone-Dipstick Negative (Negative); Leukocyte Esterase-Dipstick Negative /ul (Negative); Nitrite-Dipstick Negative (Negative); Occult Blood-Urine Negative /ul (Negative); Protein-Dipstick Negative (Negative); Specific Gravity, Urine 1.015 (1.002-1.030); Urine Bilirubin Dipstick Negative (Negative); Urine Urobilinogen Normal (Normal)
[2023-08-04 10:47] LABS: Color, Urine Yellow (Yellow); Urine Clarity Clear (Clear)
[2023-08-04 10:57] LABS: Vitamin D,25 Hydroxy 76.3 ng/mL
[2023-08-04 10:58] LABS: Microalbumin,Random Urine < 5.0 mg/L (NO RANGE EST.)
[2023-08-04 11:18] LABS: AST(SGOT) 28 U/L (15-37); Alanine Aminotransfer ALT/SGPT 31 U/L (16-61); Albumin, Serum 3.2 g/dL (3.2-5.0); Alkaline Phosphatase 35 U/L (45-117); Anion Gap 6 (5-15); BUN 15 mg/dL (7-18); Calcium,Total 8.5 mg/dL (8.5-10.1); Chloride 110 mmol/L (98-107); Cholesterol 163 mg/dL (200); Creatinine, Serum 1.25 mg/dL (0.70-1.30); EST Glomerular Filtration Rate 60 mL/min (>60); Est Glom Filt Rate - Afr Amer 72 mL/min (>60); Globulin 3.2 g/dL (2.2-4.2); Glucose 68 mg/dL (74-106); High Density Lipoprotein 74 mg/dL; PSA,Total - Annual Screen 1.56 ng/mL (0.00-4.00); Potassium 3.7 mmol/L (3.5-5.1); Protein, Total 6.4 g/dL (6.4-8.2); Sodium Level 143 mmol/L (136-145); Thyroid Stim Hormone (TSH) 1.75 uIU/mL (0.358-3.74); Triglycerides 97 mg/dL; Very Low Density Lipoprotein 19 mg/dL (5-40)
== END | disposition home or self-care (01) ==
PROVIDERS: PCP Internal Medicine; Referring Provider Nurse Practitioner; Visit Provider Nurse Practitioner
DX: E78.00 Pure hypercholesterolemia, unspecified (principal); E55.9 Vitamin D deficiency, unspecified; R73.09 Other abnormal glucose; Z12.5 Encounter for screening for malignant neoplasm of prostate
CPT/HCPCS: 36415; 80053; 80061; 81001; 82043; 82306; 82570; 84153; 84443; 85025; 87070; 87205; G0103

== ENCOUNTER → 2023-09-13 | Outpatient (CLI) | payer MEDICARE, OTHER, SELFPAY | END | disposition home or self-care (01) | LOC: LABSPEC 15:06 | PROVIDERS: PCP Internal Medicine; Visit Provider Internal Medicine Pulmonary Disease | DX: R06.02 Shortness of breath (principal); R05.9 Cough, unspecified | CPT/HCPCS: 87070; 87205 ==

== ENCOUNTER → 2023-09-26 | Outpatient (CLI) | payer MEDICARE, OTHER, SELFPAY ==
--- NOTE | 2023-09-26 06:28 | ECHOCS_ITS ---
Version 2 Reason For Study: PICHARDO Procedure This was a 2D Doppler, Color Flow transthoracic echocardiogram. The study was technically difficult. Contrast injection was performed. Exam performed in department. Left Ventricle Normal LV size. Left ventricular systolic function is normal. The estimated ejection fraction is 60 %. Stage 1 diastolic dysfunction. No regional wall motion abnormalities noted. Right Ventricle Normal RV size. Normal systolic function. Atria Normal left atrium. Normal right atrium. Mitral Valve There is mild to moderate mitral annular calcification. Tricuspid Valve Normal tricuspid valve. Mild (1+) tricuspid valve insufficiency. Pulmonary artery systolic pressure is 36 mmHg. Aortic Valve Trisinus/trileaflet aortic valve. Mild focal aortic valve thickening. Mild (1+) aortic valve insufficiency. Pulmonic Valve Normal pulmonic valve. Great Vessels Normal aortic root. The pulmonary artery is normal size. Normal inferior vena cava. Pericardium/Pleural No pericardial effusion. Medication 20 gauge I.V. with prn adaptor inserted into right arm. Diluted definity 1.5ml given slow IV push to enhance endocardial definition. MMode/2D Measurements & Calculations LVIDd: 4.8 cm IVSd: 0.79 cm Ao root diam: 3.2 cm LVIDs: 3.6 cm LVPWd: 0.77 cm LA dimension: 3.6 cm RVDd: 3.7 cm FS: 25.9 % LAV(MOD-bp): 48.7 ml LVAd ap4: 29.7 cm2 LVAd ap2: 29.3 cm2 LAV(MOD-bp) Indexed: 25.8 ml/m2 LVLd ap4: 8.0 cm LVLd ap2: 8.3 cm LAV(MOD-sp2): 49.7 ml EDV(MOD-sp4): 91.9 ml EDV(MOD-sp2): 87.4 ml LAV(MOD-sp4): 43.3 ml EDV(sp4-el): 93.5 ml EDV(sp2-el): 87.6 ml LVAs ap4: 18.7 cm2 LVAs ap2: 18.8 cm2 LVLs ap4: 7.2 cm LVLs ap2: 6.9 cm ESV(MOD-sp4): 42.7 ml ESV(MOD-sp2): 43.0 ml ESV(sp4-el): 40.9 ml ESV(sp2-el): 43.4 ml EF(MOD-sp4): 53.5 % EF(MOD-sp2): 50.8 % EF(sp4-el): 56.2 % SV(MOD-sp4): 49.1 ml SV(MOD-sp2): 44.4 ml SV(sp4-el): 52.5 ml LA A4 area: 17.7 cm2 RA A4 area: 14.7 cm2 TAPSE: 2.2 cm Time Measurements MV dec time: 0.15 sec Doppler Measurements & Calculations MV E max rahul: 68.2 cm/sec Lat Peak E' Rahul: 9.9 cm/sec Med Peak E' Rahul: 10.1 cm/sec MV A max rahul: 69.4 cm/sec E/E' lat: 6.9 E/E' med: 6.8 MV E/A: 0.98 MV V2 max: 83.0 cm/sec MV P1/2t max rahul: 83.9 cm/sec Ao V2 max: 146.9 cm/sec MV max P.8 mmHg MV P1/2t: 61.4 msec Ao max P.6 mmHg MV V2 mean: 49.3 cm/sec Ao V2 mean: 92.9 cm/sec MV mean P.2 mmHg MV dec slope: 400.1 cm/sec2 Ao mean P.0 mmHg MV V2 VTI: 33.1 cm MVA(P1/2t): 3.6 cm2 Ao V2 VTI: 33.7 cm AV (velocity ratio): 0.76 AI max rahul: 382.6 cm/sec LV V1 max: 90.1 cm/sec MR max rahul: 485.6 cm/sec AI max P.6 mmHg LV V1 max P.2 mmHg MR max P.3 mmHg LV V1 mean P.8 mmHg AI dec slope: 171.5 cm/sec2 LV V1 mean: 63.5 cm/sec AI P1/2t: 653.6 msec LV V1 VTI: 25.7 cm PA V2 max: 72.8 cm/sec TR max rahul: 286.6 cm/sec TR max P.9 mmHg ECHO/Echo Complete W/ Contrast Interpretation Summary Normal LV size. Left ventricular systolic function is normal. The estimated ejection fraction is 60 %. Stage 1 diastolic dysfunction. Pulmonary artery systolic pressure is 36 mmHg. Contrast injection was performed. Ordering Physician: Nancy Lozada Referring Physician: Yen Hamlin M.D. Performed By: Jason Camacho RCS
--- NOTE | 2023-09-26 15:52 | STRESSREP_ITS ---
Stress Test Report Exercise myocardial perfusion stress test. 78-year-old man with a history of dyspnea on exertion Stress protocol: Resting EKG demonstrates sinus bradycardia with a rate of 59 bpm resting blood pressure is 148/70 mmHg. The patient exercised according to the regular [place] protocol for a total duration of 4 minutes and 45 seconds attaining a maximum heart rate of 114 bpm which was 79% of maximum predicted heart rate; the maximum workload was 7 metabolic equivalents. At rest there were no ST or T wave changes noted to suggest ischemia and at peak exercise upsloping ST changes only were noted which did not meet the criteria for ischemia. No clinical angina was noted the test was terminated due to the target heart rate being achieved/f atigue. The peak blood pressure was 180/70 mmHg. Rate-pressure product was 19,200. Myocardial perfusion protocol. 11.7 mCi of technetium 99m sestamibi was injected at rest. The patient exercised according to regular [facility] protocol for total duration of 4 minutes and 45 seconds and at peak exercise 34.3 mCi of technetium 99m sestamibi was injected stress images were obtained stress and rest images were reconstructed in comparing the short axis vertical long and horizontal long axis. Gated images were also obtained. Perfusion SPECT analysis: Review of the stress images demonstrate normal uptake of tracer noted in all areas of the myocardium. The resting images similarly demonstrate normal uptake of tracer noted in all areas of the myocardium. No areas of reversibility are noted to suggest ischemia no previous infarct was noted. Gated SPECT analysis: The gated ejection fraction is 68%. Conclusion: Normal exercise myocardial perfusion stress test at a moderate workload Preserved ejection fraction.
== END | disposition home or self-care (01) ==
PROVIDERS: PCP Internal Medicine; Referring Provider Physician Assistant Medical; Visit Provider Physician Assistant Medical
DX: R06.09 Other forms of dyspnea (principal); Z95.5 Presence of coronary angioplasty implant and graft
CPT/HCPCS: 78452; 93017; 93306; A9500; Q9957; A4216; C8929

== ENCOUNTER → 2023-10-02 | Outpatient (CLI) | payer MEDICARE, OTHER, SELFPAY ==
--- NOTE | 2023-10-02 12:42 | CT_ITS ---
STUDY: CT CHEST WITHOUT CONTRAST REASON FOR EXAM: Male, 78 years old. SOB RADIATION DOSAGE (If Supplied By Facility): CTDIvol = ( 10.02 ) mGy, DLP = ( 373.00 ) mGycm TECHNIQUE: Transaxial imaging was performed without the administration of intravenous contrast material. Individualized dose optimization techniques were used for this CT. COMPARISON: Comparison is made with prior study December 11, 2018. FINDINGS: CHEST Hyperinflation. Emphysematous changes. New focal area of the irregular groundglass appearance in the lateral aspect of the right upper lobe. Radiographic follow-up is recommended. Stable scarring at the lung bases with evidence of a new 1.1 cm spiculated nodule in the posterior segment of the right lower lobe. Correlation with a PET scan is recommended. There is no demonstrated pleural abnormality. There are calcifications of the coronary arteries. Priors surgical changes of the descending thoracic aorta. Normal mediastinum. Normal hilar regions. Normal unenhanced pulmonary arteries. Normal aorta arch and descending thoracic aorta. There are degenerative changes of the thoracic spine. There is no demonstrated abnormality of the visualized upper abdomen. CT/Chest without Contrast IMPRESSION: New 1.1 sinus but later nodule in the posterior segment of the right lower lobe. Correlation with PET scan is recommended. Focal area of irregular groundglass appearance in the lateral aspect of the right upper lobe. This may represent a focal area of scarring superimposed on emphysematous changes. Electronically Signed: Isael Abdi MD at 15:43 EST ,
== END | disposition home or self-care (01) ==
LOC: CT 12:39
PROVIDERS: PCP Internal Medicine; Referring Provider Internal Medicine Pulmonary Disease; Visit Provider Internal Medicine Pulmonary Disease
DX: R06.02 Shortness of breath (principal); R05.9 Cough, unspecified
CPT/HCPCS: 71250

== ENCOUNTER → 2023-10-21 | Outpatient (CLI) | payer MEDICARE, OTHER, SELFPAY ==
--- NOTE | 2023-10-21 11:30 | PET_ITS ---
EXAMINATION: FDG PET/CT ? INDICATIONS: 62-year-old male with a history of pulmonary nodularity, presenting for initial evaluation. ? COMPARISON EXAMINATION: CT of the chest report dated 10/02/2023. ? TECHNIQUE: Following the intravenous administration of 13.4 mCi of F-18 deoxyglucose via the left hand, multiplanar image acquisitions of the head, neck, chest, abdomen and pelvis to the level of the midthigh, obtained at one-hour post radiopharmaceutical administration contemporaneously interpreted with the current CT of the chest, abdomen and pelvis dated 10/21/[address] of the chest report dated 10/02/2023 via coregistration reveal: ? SERUM GLUCOSE LEVEL:? 77 mg/dL? HEIGHT:?? 67 inches WEIGHT:?? 177 pounds ? FINDINGS: ? HEAD/NECK:? There is no evidence of abnormal increased glucose metabolism in the pharyngeal mucosal space, parapharyngeal space, oropharynx, bilateral-lateral and anterior neck, hypopharynx and distribution of the larynx. ? The visualized portion of the cerebral cortical-subcortical structures demonstrate symmetric and preserved glucose metabolism. ? CHEST:? There is no quantitative scintigraphic evidence of abnormal increased glucose metabolism within the context of the bilateral hemithorax pulmonary parenchyma, right and left hemithorax at the pleural interface, mediastinal structures, and left-right thoracic perihilum. ? CT of the chest demonstrates the following anatomic characteristics: A triangular-shaped density defined in the right mid lateral lung field, right upper lobe, is ametabolic. Accentuated interstitial change manifested in the right lower posterior lung field reveals no evidence of increased tracer uptake. Emphysematous changes are defined in the bilateral upper-mid lung dominguez. Subcentimeter mediastinal and bilateral axillary soft tissue densities are ametabolic. Atherosclerotic calcification is defined in the thoracic aorta without evidence of dilatation, aneurysm formation. Coronary arterial calcification is observed. ? ABDOMEN/PELVIS:? Normal physiologic distribution of the radiopharmaceutical is identified in the hepatic and splenic parenchyma, both renal units, urinary bladder, and visualized intestinal tract. Diffuse intestinal tract is identified in all four quadrants of the abdomen and pelvis. ? CT of the abdomen and pelvis is remarkable for the following: Calcification is demonstrated in the abdominal aorta. The maximal axial diameter of the abdominal aorta is? 59.6 mm. Abdominal-pelvic arterial calcification is observed. Right and left inguinal soft tissue densities are ametabolic. Calcification is identified in both kidneys. ? SKELETAL:? Degenerative changes defined in the thoracic and lumbar spine demonstrate no evidence of increased glucose metabolism. There are no sclerotic, mixed sclerotic-lytic, or primarily lytic changes defined in the axial skeletal structures with evidence of increased FDG uptake. ? PET/PET/CT Tumor Base -Thigh Init IMPRESSION: 1. NEGATIVE EXAMINATION. There is no definitive quantitatively significant scintigraphic evidence of viable neoplasm. 2. Meticulous attention paid to the right hemithorax pulmonary parenchyma demonstrates no evidence of increased tracer uptake to correlate with the structural abnormality defined on CT of the chest dated 10/02/2023 and confirmed on PET CT acquisitions dated 10/21/2023. 3. Anatomic stability may be ensured in the right hemithorax parenchymal density with repeat CT of the thorax in 9-12 weeks if clinically indicated. Electronic Signature Bob Calhoun D.O. Accurate Quantification of SUVs for this report are calculated using the exclusive [employer]. ([place] Patent No. [id number] B2 [phone] [place] patent [phone] [id number] [phone]). Standardization and correction of the FDG SUV metric via [employer] technology allow for vendor non-specific objective quantitative examination comparison and optimization of the sensitivity and specificity of the FDG PET-CT examination. . [email or web address] Electronically Signed: Bob Calhoun DO at 9:20 EST ,
== END | disposition home or self-care (01) ==
LOC: ONC 09:15
PROVIDERS: PCP Internal Medicine; Referring Provider Internal Medicine Pulmonary Disease; Visit Provider Internal Medicine Pulmonary Disease
DX: R91.1 Solitary pulmonary nodule (principal)
CPT/HCPCS: 78815; A9552

== ENCOUNTER → 2023-12-09 | Outpatient (CLI) | payer MEDICARE, OTHER, SELFPAY ==
--- NOTE | 2023-12-09 09:48 | PR.ITP_ITS ---
General Information2 General Information Admitting Diagnosis: COPD STAGE IV SEVERE Gold Classification:: GOLD 3: Severe Oxygen: 2 LITERS 31/03 PFT FEV1:: 47 FVC:: 80 FEV1/FVC%:: 58 Personal Learning Style/Barriers Personal Learning Style:: Audio/Visual and Written Barriers to Learning: None Stage of change r/t lifestyle modifications: Prepared Educational Classes RI: Living with Chronic Lung Disease: Initial Assessment, Breathing Retraining: Initial Assessment, Exercise: Initial Assessment, Energy Conservation: Initial Assessment and Oxygen therapy: Initial Assessment (Patient to wear O2 31/03 reluctant at home to wear it.) Education/Goals Individual Counseling: Initial Assessment: High Blood Pressure and Sedentary Lifestyle RI Patient Goals: Increase muscle strength: Initial Assessment, Experience less dyspnea: Initial Assessment and Improve energy level: Initial Assessment Exercise - Initial Assessment Visit Date of Eval: 12/09/23 Session Number:: 0 (Pre pulmonary rehab evaluation) Problem/Goals Problems: Deconditioning, No regular exercise, Knowledge deficit exercise guidelines and Knowledge deficit exercise safety Goals:: Aerobic exercise 30-60 mins x 12 weeks [36 sessions] Physician Prescribed Exercise Modalities: Treadmill, Airdyne and NuStep Frequency (days/week): 3 Duration (Minutes):: 30-45 Intensity: 60-80% of age predicted maximum heart rate reserve METs - Progression 0.5-1.0 weekly:: 2.0 Target HR:: 101 Resting Blood Pressure: 120/64 Minimum SpO2 with exercise: 93 EKG Type: Sinus bradycardia Plan Plan and Plan to Review:: Benefits of exercise, Core components of exercise, How to measure dyspnea level, How to monitor dyspnea level, Exercise intensity, Exercise safety guideline, Home exercise guidelines and Teena: 3-4/11-13 Nutrition/Wt Mgmt - Initial Visit Date of Eval: 12/09/23 Session Number:: 0 (Pre-pulmonary rehab evaluation) Problems/Goals Problems: Overweight Goals: BMI 21-25 Weight Management Knowledge Deficit Management of:: Overweight Admit Height:: 5 ft 7 in Admit Weight:: 178 lb Admit BMI:: 27.8 Intervention Referral to dietitian:: Yes Will attend diet classes:: Yes Intervention/Plan: Instruct on ideal BMI & set weight loss goal w/patient and Assist pt to ID & incorporate diet changes for weight loss by S9 Plan Nutrition Plan: Yes: Review BMI or WC & identify target wt & strategies for wt control and Yes: Nutrition education class: Nutrition/Wt Mgmt - 30-Day Visit Session Number:: 0 (Pre-pulmonary rehab evaluation) Weight Management Height: 5 ft 7 in Weight:: 178 lb BMI: 27.8 Nutrition/Wt Mgmt - 60-Day Visit Session Number:: 0 (Pre-pulmonary rehab evaluation) Weight Management Height: 5 ft 7 in Weight:: 178 lb BMI: 27.8 Nutrition/Wt Mgmt - 90-Day Visit Session Number:: 0 (Pre-pulmonary rehab evaluation) Weight Management Height: 5 ft 7 in Weight:: 178 lb BMI: 27.8 Nutrition/Wt Mgmt - Final Visit Session Number:: 0 (Pre-pulmonary rehab evaluation) Weight Management Height: 5 ft 7 in Weight:: 178 lb BMI: 27.8 Psychosocial - Initial Assess Visit Date of Eval: 12/09/23 Session Number:: 0 (Pre-pulmonary rehab evaluation) Psychosocial - 30-Day Visit Session Number:: 0 (Pre-pulmonary rehab evaluation) Psychosocial - 60-Day Visit Session Number:: 0 (Pre-pulmonary rehab evaluation) Psychosocial - 90-Day Visit Session Number:: 0 (Pre pulmonary rehab evaluation) Psychosocial - Final Assess Visit Session Number:: 0 (Pre pulmonary rehab evaluation) Oxygen & Oxygen Titration Init Visit Date of Eval: 12/09/23 Session Number:: 0 (Pre-pulmonary rehab evaluation) Initial Assessment Oxygen on Admission: Continuous home use (2 liters) SpO2:: 93 FiO2:: 28 Port O2:: 2 liters DME:: Katiana Patient Reports:: No cough Goal Oxygen & Oxygen Tritration Goals: Effective hypoxemia control and Uses O2 as Rx'd/safely (patient is not using home oxygen as prescribed.) Plans Plan: Monitor SpO2 rest & with exercise, Train appropriate O2 use at rest, Train appropriate O2 use with exercise and Train O2 safety & systems Instruct correct technique/timing & care:: MDI and Nebulizer Bronchial Hygiene Plan: Hydration and Hand hygiene Oxygen & Oxygen Titration 30D Visit Session Number:: 0 (Pre pulmonary rehab evaluation) Reassessment SpO2:: 93 Oxygen & Oxygen Titration 60D Visit Session Number:: 0 (Pre pulmonary rehab evaluation) Reassessment SpO2:: 93 Oxygen & Oxygen Titration 90D Visit Session Number:: 0 (Pre pulmonary rehab evaluation) Reassessment SpO2:: 93 Oxygen & Oxygen Titration DANILO Visit Session Number:: 0 (Pre pulmonary rehab evaluation) Reassessment SpO2:: 93 Core Components - Initial Visit Date of Eval: 12/09/23 Session Number:: 0 (Pre pulmonary rehab evaluation) Hypertension Hypertension Diagnosis:: Hypertension ICD-10 I10 BP: 120/64 [place] [employer] Hypertension Guidelines Outcomes/Goals: Able to verbalize/achieve optimal blood pressure <130/80 Tobacco - Initial Assessment Tobacco Program Goals Learning Barriers: Hearing Do you have family support?: Yes Tobacco Use: Non-smoker How long ago did you quit using tobacco products?: Greater than or equal to 6 months ago Do you use smokeless tobacco?: No Smoking Cessation Referral:: No Individual Education/Counseling:: No Education Schedule Given:: Yes Gave Education Materials For:: Pulmonary Disease, Risk Factors, Breathing Techniques, Medical Compliance, Pulmonary A&P, Exacerbation Signs & Symptoms and Stress & Relaxation Exacerbation Mgmt & Airway Clearance Problems:: Hypoxemia and Poor knowledge of O2 use/safety Hypoxemia Goals:: Hypoxemia managed, Port system and Using O2 as Rx's safely Patient Reports:: No cough Plan: Monitor SpO2 rest & with exercise, Train appropriate O2 use at rest, Train appropriate O2 use with exercise and Train O2 safety & systems Instruct correct technique/timing & care:: MDI and Nebulizer Bronchial Hygiene Plan: Hydration and Hand hygiene Medication Medication Problems: Medication non-adherence Interventions/plans: Instruct on medication effects & side effects, Review medication list w/patient every two weeks and Instruct importance of taking meds as ordered & assist problem solving Medication Goals: Adherence to prescribed medications and Correct technique/timing & care of MDI, DPI, nebulizer, and spacer. Does pt report taking home meds as prescribed?: No Medications: Yes: MDI, Yes: DPI, Yes: NEB and Yes: Spacer Diabetes Diabetes:: No Referral to dietitian:: Yes Referral to Diabetic Clinic:: No Will attend diet classes:: Yes Heart Failure Ejection fraction %:: 60 Documenting weight daily for CHF: No Core Components - 30 DAYS Visit Session Number:: 0 (Pre pulmonary rehab evaluation) Hypertension Hypertension Diagnosis:: Hypertension ICD-10 I10 Resting Blood Pressure:: 120/64 [place] [employer] Hypertension Guidelines Outcomes/Goals: Able to verbalize/achieve optimal blood pressure <130/80 Tobacco - 30-Day Tobacco Program Goals Do you have family support?: Yes Tobacco Use: Non-smoker Do you use smokeless tobacco?: No Smoking Cessation Referral:: No Education Schedule Given:: Yes Gave Education Materials For:: Pulmonary Disease, Risk Factors, Breathing Techniques, Medical Compliance, Pulmonary A&P, Exacerbation Signs & Symptoms and Stress & Relaxation Diabetes Diabetes:: No Heart Failure Documenting weight erica: No Core Components - 60 DAYS Visit Session Number:: 0 (Pre pulmonary rehab evaluation) Hypertension Hypertension Diagnosis:: Hypertension ICD-10 I10 Resting Blood Pressure:: 120/64 [place] [employer] Hypertension Guidelines Outcomes/Goals: Able to verbalize/achieve optimal blood pressure <130/80 Tobacco - 60-Day Tobacco Program Goals Do you have family support?: Yes Tobacco Use: Non-smoker Do you use smokeless tobacco?: No Smoking Cessation Referral:: No Individual Education/Counseling:: No Education Schedule Given:: Yes Gave Education Materials For:: Pulmonary Disease, Risk Factors, Breathing Techniques, Medical Compliance, Pulmonary A&P, Exacerbation Signs & Symptoms and Stress & Relaxation Diabetes Diabetes:: No Heart Failure Documenting weight erica: No Core Components - 90 DAYS Visit Session Number:: 0 (Pre pulmonary rehab evaluation) Hypertension Hypertension Diagnosis:: Hypertension ICD-10 I10 Resting Blood Pressure:: 120/64 [place] [employer] Hypertension Guidelines Outcomes/Goals: Able to verbalize/achieve optimal blood pressure <130/80 Tobacco - 90-Day Tobacco Program Goals Do you have family support?: Yes Tobacco Use: Non-smoker Do you use smokeless tobacco?: No Smoking Cessation Referral:: No Individual Education/Counseling:: No Education Schedule Given:: Yes Gave Education Materials For:: Pulmonary Disease, Risk Factors, Breathing Techniques, Medical Compliance, Pulmonary A&P, Exacerbation Signs & Symptoms and Stress & Relaxation Diabetes Diabetes:: No Core Components - Final Visit Session Number:: 0 (Pre pulmonary rehab evaluation) Hypertension Hypertension Diagnosis:: Hypertension ICD-10 I10 Resting Blood Pressure:: 120/64 [place] [employer] Hypertension Guidelines Outcomes/Goals: Able to verbalize/achieve optimal blood pressure <130/80 Tobacco - Final Tobacco Program Goals Do you have family support?: Yes Tobacco Use: Non-smoker Do you use smokeless tobacco?: No Smoking Cessation Referral:: No Individual Education/Counseling:: No Education Schedule Given:: Yes Diabetes Diabetes:: No Patient Health Questionnaire PHQ-9 Screening Initial Assessment: 1. Little interest or pleasure in doing things: Several days 2. Feeling down, depressed, or hopeless: Several days 3. Trouble falling or staying asleep, or sleeping too much: Not at all 4. Feeling tired or having little energy: Several days 5. Poor appetite or overeating: Several days 6. Feeling bad about yourself -- or that you are a failure or have let yourself or your family down: Several days 7. Trouble concentrating on things, such as reading the newspaper or watching television: Not at all 8. Moving or speaking so slowly that other people could have noticed. Or the opposite - being so fidgety or restless that you have been moving around a lot more than usual: Not at all 9. Thoughts that you would be better off , or of hurting yourself in some way: Not at all Total Score: 5 Knowledge Questionaire (BCKQ) Information Information: [facility] COPD Knowledge Questionnaire (BCKQ) This questionnaire is designed to find out what you know about your lung problem. It should be completed without help form anyone else. This usually takes between 10 and 20 minutes. Your answers will help us to find out what information you need to help you to understand and manage your lung condition. [place] the [place] which you think is the correct answer. Questions 1. In COPD: a. In COPD the word chronic means it is severe: True b. COPD can only be confirmed by breathing tests: Don't know c. In COPD ther is usually gradual worsening over time: True d. In COPD oxygen levels in the blood are always low: Don't know e. COPD is usually in people less than 40 years old: Don't know 2. COPD: [place] than 80% of COPD cases are caused by cigarette smoking: True b. COPD can be caused by occupational dust exposure: True c. Longstanding asthma can develop into COPD: True d. COPD is commonly an inherited disease: False e. Women are less vunerable to the effects of cigarette than men: False 3. The following symptoms are Common in COPD: a. Swelling of the ankles is common in COPD:: Don't know b. Fatigue [tiredness] is common in COPD: True c. Wheezing is common in COPD: True d. Crushing chest pain is common in COPD: Don't know e. Rapid weight loss is common in COPD: Don't know 4. Breathlessness in COPD: a. Severe breathlessness prevents travel by air: Don't know b. Breathlessness can be worsened by eating large meals: True c. Breathlessness means that your oxygen levels are low: True d. Breathlessness is a normal response to exercise: False e. Breathlessness is primarily caused by a narrowing of the bronchial tubes: Don't know 5. Phlegm (sputum): a. Coughing phlegm is a common symptom in COPD: True b. Clearing phlegm is more difficult if you get dehydrated: True c. Bronchodilator inhalers can help clear phlegm: Don't know d. Phlegm causes harm if swallowed: False e. Clearing phlegm can be assisted by breathing exercises: True 6. Chest infections / exacerbations: a. Chest infections often cause coughing of blood: Don't know b. Chest infection phlegm usually becomes coloured (ylw/grn): True cExerbations (episodes of worsening) can occur in the absence of chest infection: Don't know d. Chest infections are always accompanied by a high temperature: True e. Steroid tablets should be taken whenever there is an exacerbation: Don't know 7. Excercise in COPD: aWalking excercises better than breathing to improve fitness: Don't know b. Exercise should be avoided as it strains the lungs: False c. Exercise can help maintain your bone density: True d. Exercise helps relieve depression: True e. Exercise should be stopped if it makes you breathless: False 8. Smoking: a. Stopping smoking will reduce the risk of heart disease: True b. Stopping smoking will slow down further lung damage: True c. Stopping smoking is pointless as the damage is done: False d.Stopping smoking usually results in improved lung function: True eNicotine replacement therapy only available on prescription: Don't know 9. Vaccination: a. A flu jab is recommended every year: True b. You can get flu from having a flu jab: True c. You can only have a flu jab if you are 65 or over: False d. A pneumonia jab protects against all forms of pneumonia: False e.You can have a pneumonia jab and a flu job on the same day: False 10. Inhaled bronchodilators: a. Bronchodilators act quickly (within 10 minutes): False b. Both short & long acting bronchodilators can be taken on the same day: True c. Spacers (volumatic,nebuhaler,serochamber)should be dried w/atowel after washing: False d. A spacer device increases the medication to the lungs: True e. Tremor may be a side effect of bronchodilators: True 11. Antibiotic treatment in COPD: a. To be effective, the course should last at least 10 days: False b. Excessive use of antibiotics can cause resistant bacteria (germs): Don't know c. Antibiotics will clear all chest infections: True d. Antibiotic treatment is necessary for an exacerbation (worsening) however mild: True e. Seek advice if antibiotics cause severe diarrhoea: True 12. Steroid tablets given for COPD (eg Prednisolone): a. Steroid tablets help strengthen muscles: False b. Steroid tablets should be avoided if there is a chest infection: False c. The risk of long-term side effects due to steroids is less w/short courses then w/continous treatment: Don't know dIndigestion is common side effect from using steroid tablet: False e. Steroid tablets can increase your appetite: Don't know 13. Inhaled steroids (brown, red or orange): a. Inhaled steroids should be stopped if you are given steroid tablets: Don't know bSteroid inhalers can be used for rapid relief breathlessnes: True c. Spacer devices reduce the risk of getting thrush in the mouth: Don't know e. Inhaled steroids improve lung function in COPD: True COPD Assessment Test [CAT] Questions Never cough = 0, Cough all the time = 5: 3 No phlegm = 0, Chest full of phlegm = 5: 0 No chest tightness = 0, Chest very tight = 5: 0 No breathless w/exertion = 0, Very breathless w/exertion = 5: 4 No limitations w/activity = 0, Very limited w/activity = 5: 4 Confident leaving home = 0, Not at all confident = 5: 1 Sleep soundly = 0, Don't sleep soundly = 5: 1 Lots of energy = 0, No energy at all = 5: 3 Total CAT score:: 16 Self-Efficacy 6-Item Scale Initial Assessment: We would like to know how confident you are in doing certain activities. Please select your confidence level for: Fatigue Select Number: 3 Physical Discomfort or Pain Select Number: 6 Emotional Distress Select Number: 9 Other Symptoms or Health Problems Select Number: 4 Different Tasks and Activities Select Number: 9 Medication Select Number: 9 Total Score:: 6 Nutrition Survey Nutrition Survey Instructions Scoring Instructions Nutrition Survey Initial: Have you lost >10 lbs over the past 2 months without trying?: No Are you following a special diet at home for diabetes, low fat, or low salt?: No Are you interested in meeting with a dietitian for help understanding your diet?: No Do you eat less than 3 meals a day?: Yes Do you eat fatty meats (conner, sausage, ribs, etc), fried foods, desserts, large amounts of salad dressings, margarine, butter, or cheese most days?: Yes Do you have food allergies? [Enter types in comment field]: No Do you eat in restaurants more than 3 times a week?: Yes Do you season food with salt, seasoning salt, or garlic salt?: Yes Do you used canned, boxed, frozen meals, or soups, seasoning packets?: Yes Total Score:: 5
[2023-12-09 10:05] VITALS: BP 120/64; O2SAT 93
--- NOTE | 2023-12-09 10:29 | PCM.PR.HP ---
History of Present Illness General Arrival date:: 12/09/23 (ADD KX MODIFIER TO ACCOUNT. PATIENT HAS PREVIOUSLY COMPLETED 36 SESSIONS OF PULMONARY REHAB) Arrival time:: 10:00 Date of Referral:: 11/10/23 Date of Evaluation: 12/09/23 Referring Physician: Dr. Humberto Leslie Primary Diagnosis: COPD Stage IV: Severe History of Present Pulmonary Event mMRC Breathless Scale: When is the patient short of breath? Y/N Grade: Description of Breathlessness: 0 I only get breathless with strenuous exercise. 1 I get short of breath when hurrying on level ground or walking up a slight hill. 2 On level ground, I walk slower than people of the same age because of breathless, or have to stop for breath when walking at my own pace. y 3 I stop for breath after walking 100 yards or after a few minutes on level ground. 4 I am too breathless to leave the house or I am breathless when dressing. Respiratory Problems: Yes Fatigue, Able to Speak in Full Sentences and Dyspnea with Activity Medications Home Medications albuterol sulfate 90 mcg/actuation aerosol inhaler 1 puff inhalation Q4H PRN PRN Shortness Of Breath 01/25/14 tiotropium bromide 18 mcg capsule with inhalation device 1 puff inhalation DAILY breathing 01/25/14 pantoprazole 40 mg tablet,delayed release 40 mg PO DAILY gerd 06/11/17 calcium carbonate 600 mg calcium (1,500 mg) tablet 600 mg PO DAILY supplement 11/05/19 montelukast 10 mg tablet 10 mg PO DAILY breathing 11/05/19 ympkknop-ed-ibrqy 300 mcg-K 60 mcg-lycop 600 mcg-lutein 300 mcg tablet 1 ea PO DAILY supplement 11/05/19 pravastatin 80 mg tablet 80 mg PO QHS 11/06/19 cholecalciferol (vitamin D3) 25 mcg (1,000 unit) tablet 500 unit PO DAILY supplement 03/16/21 fenofibrate nanocrystallized 145 mg tablet 145 mg PO DAILY cholesterol 03/16/21 tamsulosin 0.4 mg capsule 0.4 mg PO DAILY urine flow 03/16/21 temazepam 15 mg capsule 15 mg PO QHS sleep 03/16/21 amiodarone 200 mg tablet 100 mg (1/2 x 200 mg) PO DAILY heart #45 tabs 03/03/23 citalopram 20 mg tablet 20 mg PO QDAY 12/04/23 finasteride 5 mg tablet 5 mg PO QDAY 12/04/23 pentoxifylline 400 mg tablet,extended release 400 mg PO QDAY 12/04/23 Allergies Allergies dog dander Allergy (Verified 12/04/23 13:23) Other Secretions Thick:: No Thin:: No Sleep Disorder Evaluation Hx of Sleep Apnea: No Do you snore loudly (louder than talking or can be heard through closed doors)?: No Do you often feel tired/ fatigued/ sleepy during daytime?: Yes Has anyone observed you stop breathing during sleep?: No History of Hypertension (for STOP score): Yes STOP Results: Positive Medical Utilization Medical Devices Do you use a peak flow meter at home?: No Do you use a spacer device with your inhalers?: No Medical Utilization Number of hospital visits in the last year?: 1 Number of emergency room visits in the last year?: 1 Do you see your physician on a regular schedule?: Yes How often?: 6 months Advanced Directives Advanced Directives Power of Carriage Setter: Yes Living Will: Yes Advance Directives Information Provided: No Advance Directives on File: Yes DNR Order?:: No MOLST See MOLST form: No Past Medical History Covid-19 Screening Physicial Symptoms Fever: No Unexplained muscle aches: No Current respiratory symptoms: No Upper respiratory infections symptoms: No Gastro-intestinal symptoms: No Ebq-Ttmc-[id number] symptoms: No Other Clinical Concerns Has tested positive for COVID-19 in last 30 days: No Exposure Risk Had contact w/person w/symptoms or Covid-19 (+) last 14 days: No Has High Risk Exposures ID'd by Health dept/Inf Control team: No Pertinent Comorbidities 65 years or older:: Yes Lives in Assisted Living facility:: No Has a chronic lung disease or moderate to severe asthma:: Yes Has a serious heart condition:: No Immunocompromised:: No Severely obese (Body Mass Index of 40 or higher):: No Diabetic:: No Has chronic kidney disease undergoing dialysis:: No Has liver disease:: No Medical History Medical History Acute respiratory failure with hypoxia Acute upper respiratory infection Anxiety and depression Aortic aneurysm of unspecified site without mention of rupture Aspiration pneumonitis Atherosclerotic heart disease of [place] coronary artery without angina pectoris BPH (benign prostatic hyperplasia) CKD (chronic kidney disease), stage III COPD (chronic obstructive pulmonary disease) Dizziness and giddiness Essential (primary) hypertension Former smoker Former tobacco use GERD (gastroesophageal reflux disease) Hyperlipidemia IBS (irritable bowel syndrome) Irregular heart beat Multiple premature ventricular complexes 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 Daughter Hypertension Current/ Previous Services Pulmonary Rehab:: Yes Comments Comments: Previously has completed 36 sessions of pulmonary rehab here at [facility]. Patient has been advised there is a maximum lifetime benefit of 72 sessions covered by Medicare Part B. Social History Smoking History Smoking Status: Former smoker Hx Tobacco Use: No Hx Smoking Exposure: No Alcohol Use Alcohol Usage: No Substance Abuse Hx Substance Use: No Occupation Occupation (List type of work in comments):: Retired Hobbies, Recreation, Social Activities Hobbies: Watch TV Recreational Activities: I am able to engage in a few activities Functioning ADL/IADL Current Ability Current Ability: Independent: Self-Care (e.g.,grooming, dressing, & bathing), Independent: Ambulation, Independent: Transfer and Independent: Household tasks (e.g., light meal prep, laundry, shopping) Pt Functioning Prior to Problem Prior Functioning: Self-Care (e.g.,grooming, dressing, & bathing): Independent, Ambulation: Independent, Transfer: Independent and Household tasks (e.g., light meal prep, laundry, shopping): Independent Social Environment Status Marital Status: Current Living Arrangements Living Environment:: Spouse Safety Do you feel safe in your surroundings?: Yes Review of Systems Review of Systems Review of Systems Respiratory: Reports SOB upon Exertion, Wheezing, Appetite, Normal and Fatigue Pain Is Patient Pain Free?: Yes Pain Location: none Risk Factor Assessment Vital Signs Temperature: 98.7 F Pulse Rate: 75 Pulse Rhythm: Regular Respiratory Rate: 16 Pulse Ox: 93 Blood Pressure: 120/64 Diabetes Nutrition Referral for Diabetes: No Obesity Height: 5 ft 7 in Weight:: 178 lb Weight in Pounds: 178.0 lbs Weight Source: Stated by Patient Body Mass Index (BMI): 27.8 Nutritional Referral for Obesity: No Physical Activity Physical Inactivity: None Risk Stratification Risk Guidelines: Lowest Risk: Risk Factor for Smoking, Risk Factor for Dyslipidemia, Risk Factor for Diabetes, Risk Factor for Hypertension and Risk Factor for Depression, Moderate Risk: Risk Factor for Obesity and Highest Risk: Risk Factor for Sedentary Lifestyle For Smoking Smoking Risk Guidelines For Dyslipidemia Dyslipidemia Risk Guidelines For Diabetes Mellitus Diabetes Risk Guidelines For Obesity/Overweight Obesity/Overweight Risk Guidelines For Hypertension Hypertension Risk Guidelines For Sedentary Lifestyle Sedentary Lifestyle Risk Guidelines For Depression Depression Risk Guidelines Motivation Motivation to Participate On a scale of 1 to 10, how prepared are you to commit to attending program?: 8 What do you see as barriers to successfully being able to complete the program?: doctors appointments What do you see as the benefits of succesfully completing the program? In other words, what do you hope to get out of participating in the program?: Getting back in shape, breathing better Are there issues you are dealing with that will interfere with completing the program?: no Do you have a spouse or signficant other, family or friends who will help support you to complete the program?: yes Diagnostic Data Review Pulmonary Function Test FEV1:: 47 FVC:: 80 FEV1/FVC%:: 58 Gold Classification: GOLD class III(severe COPD)with FEV1/FVC<70, 30%</=FEV1< 50% predicted
[2023-12-09 10:38] VITALS: BP 120/64; PULSE 75; RESP 16; TEMP 37.1; O2SAT 93
[2023-12-09 10:44] VITALS: BMI 27.8
[2023-12-09 10:54] VITALS: BMI 27.8
== END | disposition home or self-care (01) ==
PROVIDERS: PCP Internal Medicine; Referring Provider Internal Medicine Pulmonary Disease; Visit Provider Internal Medicine Pulmonary Disease
DX: I25.10 Atherosclerotic heart disease of native coronary artery without angina pectoris (principal); I10 Essential (primary) hypertension; E78.5 Hyperlipidemia, unspecified

== ENCOUNTER 2024-01-05 13:00 | Outpatient (RCR) | payer MEDICARE, OTHER, SELFPAY ==
[2023-12-09 10:44] VITALS: BMI 27.8
--- NOTE | 2024-01-06 07:01 | PR.ITP_ITS ---
Exercise - Initial Assessment Visit Session Number:: 7 Physician Prescribed Exercise Current METSs:: 3.0 Target HR:: 101 (THRR 86-101) Maximum Exercise HR:: 106 Resting Blood Pressure: 114/58 Maximum Exercise Blood Pressure: 136/84 Minimum SpO2 with exercise: 89 EKG Type: NSR to sinus tach w/ rare PVCs. Nutrition/Wt Mgmt - Initial Visit Session Number:: 7 Weight Management Admit Height:: 5 ft 7 in Admit Weight:: 178 lb Admit BMI:: 27.8 Nutrition/Wt Mgmt - 30-Day Visit Date of Eval: 01/06/24 Session Number:: 7 Weight Management Weight Assessment:: BMI 21 to 25 Height: 5 ft 7 in Weight:: 178 lb BMI: 27.8 Weight Goals Progress:: Goal met Nutrition/Wt Mgmt - 60-Day Visit Session Number:: 7 Weight Management Height: 5 ft 7 in Weight:: 178 lb BMI: 27.8 Nutrition/Wt Mgmt - 90-Day Visit Session Number:: 7 Weight Management Height: 5 ft 7 in Weight:: 178 lb BMI: 27.8 Nutrition/Wt Mgmt - Final Visit Session Number:: 7 Weight Management Height: 5 ft 7 in Weight:: 178 lb BMI: 27.8 Psychosocial - Initial Assess Visit Session Number:: 7 Problems/Goals Psychosocial Goals: 1. Patient is free from overwhelming symtoms of depression (or anxiety, 2. Identifies personal stressors & states the strategies for managing, 3. Identifies activities to decrease isolation and/or symptoms of, 4. Improved psychosocial coping skills., 5. Verbalizes coping strategies. and 7. Improved Q.O.L. Psychosocial Test Tool Used:: PHQ-9 Questionnaire PHQ-9 Score: 3 Referred to MD for counseling:: No Referral to Behavioral Health PS - Interventions: Yes: Attend Stress Management Classes and No: Referral to Behavioral Health if PHQ-9 score >9:, No: Referral to [facility] and No: Referral to Physician if PHQ-9 if score is 5-9: Intervention/Plan: See List Interventions/Plan:: Assess stressors,coping strategies & signs of derpression on admission, Instruct/assist pt to develop coping & personal stress Mgt strategies, Instruct patient to recognize signs & symptoms of depression and Instruct patient to recog Comments:: PATIENT RETURNS [employer]ONSTRATES STRESS MANAGEMENT AND RELAXATION TECHNIQUES Psychosocial - 30-Day Visit Date of Eval: 01/06/24 Session Number:: 7 Problems/Goals Psychosocial Goals: 1. Patient is free from overwhelming symtoms of depression (or anxiety, 2. Identifies personal stressors & states the strategies for managing, 3. Identifies activities to decrease isolation and/or symptoms of, 4. Improved psychosocial coping skills., 5. Verbalizes coping strategies. and 7. Improved Q.O.L. Psychosocial Test Tool Used:: PHQ-9 Questionnaire PHQ-9 Score: 3 Referred to MD for counseling:: No Referral to [facility] PS - Interventions: Yes: Attend Stress Management Classes and No: Referral to Behavioral Health if PHQ-9 score >9:, No: Referral to [facility] and No: Referral to Physician if PHQ-9 if score is 5-9: Plan Interventions/Plan:: Assess stressors,coping strategies & signs of derpression on admission, Instruct/assist pt to develop coping & personal stress Mgt strategies, Instruct patient to recognize signs & symptoms of depression and Instruct patient to recog Comments:: PATIENT RETURNS [employer]ESS MANAGEMENT AND RELAXATION TECHNIQUES Psychosocial - 60-Day Visit Session Number:: 7 Problems/Goals Psychosocial Goals: 1. Patient is free from overwhelming symtoms of depression (or anxiety, 2. Identifies personal stressors & states the strategies for managing, 3. Identifies activities to decrease isolation and/or symptoms of, 4. Improved psychosocial coping skills., 5. Verbalizes coping strategies. and 7. Improved Q.O.L. Psychosocial Test Tool Used:: PHQ-9 Questionnaire PHQ-9 Score: 3 Referred to MD for counseling:: No Referral to Behavioral Health PS - Interventions: Yes: Attend Stress Management Classes and No: Referral to Behavioral Health if PHQ-9 score >9:, No: Referral to [facility] and No: Referral to Physician if PHQ-9 if score is 5-9: Plan Interventions/Plan:: Assess stressors,coping strategies & signs of derpression on admission, Instruct/assist pt to develop coping & personal stress Mgt strategies, Instruct patient to recognize signs & symptoms of depression and Instruct patient to recog Comments:: PATIENT RETURNS [employer] MANAGEMENT AND RELAXATION TECHNIQUES Psychosocial - 90-Day Visit Session Number:: 7 Problems/Goals Psychosocial Goals: 1. Patient is free from overwhelming symtoms of depression (or anxiety, 2. Identifies personal stressors & states the strategies for managing, 3. Identifies activities to decrease isolation and/or symptoms of, 4. Improved psychosocial coping skills., 5. Verbalizes coping strategies. and 7. Improved Q.O.L. Psychosocial Test Tool Used:: PHQ-9 Questionnaire PHQ-9 Score: 3 Referred to MD for counseling:: No Referral to Behavioral Health PS - Interventions: Yes: Attend Stress Management Classes and No: Referral to Behavioral Health if PHQ-9 score >9:, No: Referral to [facility] and No: Referral to Physician if PHQ-9 if score is 5-9: Plan Interventions/Plan:: Assess stressors,coping strategies & signs of derpression on admission, Instruct/assist pt to develop coping & personal stress Mgt strategies, Instruct patient to recognize signs & symptoms of depression and Instruct patient to recog Comments:: PATIENT RET[employer]NS [employer]ESS MANAGEMENT AND RELAXATION TECHNIQUES Psychosocial - Final Assess Visit Session Number:: 7 Problems/Goals Psychosocial Goals: 1. Patient is free from overwhelming symtoms of depression (or anxiety, 2. Identifies personal stressors & states the strategies for managing, 3. Identifies activities to decrease isolation and/or symptoms of, 4. Improved psychosocial coping skills., 5. Verbalizes coping strategies. and 7. Improved Q.O.L. Psychosocial Test Tool Used:: PHQ-9 Questionnaire PHQ-9 Score: 3 Referred to MD for counseling:: No Referral to Behavioral Health PS - Interventions: Yes: Attend Stress Management Classes and No: Referral to Behavioral Health if PHQ-9 score >9:, No: Referral to [facility] and No: Referral to Physician if PHQ-9 if score is 5-9: Plan Interventions/Plan:: Assess stressors,coping strategies & signs of derpression on admission, Instruct/assist pt to develop coping & personal stress Mgt strategies, Instruct patient to recognize signs & symptoms of depression and Instruct patient to recog Comments:: PATIENT RETURNS [employer]ESS MANAGEMENT AND RELAXATION TECHNIQUES Oxygen & Oxygen Titration Init Visit Session Number:: 7 Initial Assessment SpO2:: 89 Oxygen & Oxygen Titration 30D Visit Date of Eval: 01/06/24 Session Number:: 7 Reassessment Reassessment- 30 Days: Demonstrate knowledge of O2 Rx at rest & w/exercise, Using O2 as Rx'd, Has home O2 as Rx'd and Uses port O2 as Rx'd Breath Sounds:: Diminished and Expiratory Wheezes SpO2:: 89 Oxygen & Oxygen Titration 60D Visit Date of Eval: 01/06/24 Session Number:: 7 Reassessment Breath Sounds:: Diminished and Expiratory Wheezes SpO2:: 89 Oxygen & Oxygen Titration 90D Visit Date of Eval: 01/06/24 Session Number:: 7 Reassessment Breath Sounds:: Diminished and Expiratory Wheezes SpO2:: 89 Oxygen & Oxygen Titration DANILO Visit Date of Eval: 01/06/24 Session Number:: 7 Reassessment Breath Sounds:: Diminished and Expiratory Wheezes SpO2:: 89 Core Components - Initial Visit Session Number:: 7 Hypertension Hypertension Diagnosis:: Hypertension ICD-10 I10 BP: 114/58 [place] [employer] Hypertension Guidelines Blood Pressure: 136/84 Outcomes/Goals: Able to verbalize/achieve optimal blood pressure <130/80 and Incorporates diet changes & exercise for blood pressure control by DC Tobacco - Initial Assessment Tobacco Program Goals Do you have family support?: Yes Tobacco Use: Non-smoker Diabetes Diabetes:: No Heart Failure Documenting weight daily for CHF: No Core Components - 30 DAYS Visit Date of Eval: 01/06/24 Session Number:: 7 Hypertension Hypertension Diagnosis:: Hypertension ICD-10 I10 Resting Blood Pressure:: 114/58 [place] [employer] Hypertension Guidelines Peak Exercise Blood Pressure:: 136/84 Change in medication: No Outcomes/Goals: Able to verbalize/achieve optimal blood pressure <130/80 and Incorporates diet changes & exercise for blood pressure control by DC Interventions/plan: Instruct on optimal blood pressure, hypertension & medications and Instruct on effects of sodium, alcohol, stress, exercise &hypertension 30 day Reassessments:: Met Tobacco - 30-Day Tobacco Program Goals Do you have family support?: Yes Tobacco Use: Non-smoker Exacerbation Mgmt & Airway Clearance Reassessment: Demonstrates knowledge of O2 Rx at rest, Demonstrates knowledge of O2 Rx with exercise, Using O2 as prescribed, Has home O2 as prescribed and Uses port O2 as prescribed Bronchial Hygiene Plan: Yes: Pt demonstrates correctly for effective cough, Yes: Pt demo correct for improved hydration and Yes: Pt demo correct for hand hygiene Medication Medication list reviewed:: Yes Taking medications 100% of the time:: Met Medication reassessment: Yes: Pt demonstrates correct technique timing for MDI, Yes: Pt demonstrates correct technique timing for DPI, Yes: Pt demonstrates correct technique timing for NEB and Yes: Pt demonstrates correct technique timing for spacer Diabetes Diabetes:: No Heart Failure Documenting weight erica: No Core Components - 60 DAYS Visit Session Number:: 7 Hypertension Hypertension Diagnosis:: Hypertension ICD-10 I10 Resting Blood Pressure:: 114/58 [place] [employer] Hypertension Guidelines Peak Exercise Blood Pressure:: 136/84 Change in medication: No Outcomes/Goals: Able to verbalize/achieve optimal blood pressure <130/80 and Incorporates diet changes & exercise for blood pressure control by DC Interventions/plan: Instruct on optimal blood pressure, hypertension & medications and Instruct on effects of sodium, alcohol, stress, exercise &hypertension 60 day Reassessments:: Met Tobacco - 60-Day Tobacco Program Goals Do you have family support?: Yes Tobacco Use: Non-smoker Exacerbation Mgmt & Airway Clearance Reassessment: Demonstrates knowledge of O2 Rx at rest, Demonstrates knowledge of O2 Rx with exercise, Using O2 as prescribed, Has home O2 as prescribed and Uses port O2 as prescribed Bronchial Hygiene Plan: Yes: Pt demonstrates correctly for effective cough, Yes: Pt demo correct for improved hydration and Yes: Pt demo correct for hand hygiene Medication Taking medications 100% of the time:: Met Medication reassessment: Yes: Pt demonstrates correct technique timing for MDI, Yes: Pt demonstrates correct technique timing for DPI, Yes: Pt demonstrates correct technique timing for NEB and Yes: Pt demonstrates correct technique timing for spacer Diabetes Diabetes:: No Heart Failure Documenting weight erica: No Core Components - 90 DAYS Visit Session Number:: 7 Hypertension Hypertension Diagnosis:: Hypertension ICD-10 I10 Resting Blood Pressure:: 114/58 [place] [employer] Hypertension Guidelines Peak Exercise Blood Pressure:: 136/84 Outcomes/Goals: Able to verbalize/achieve optimal blood pressure <130/80 and Incorporates diet changes & exercise for blood pressure control by DC Interventions/plan: Instruct on optimal blood pressure, hypertension & medications and Instruct on effects of sodium, alcohol, stress, exercise &hy pertension 90 day Reassessments:: Met Tobacco - 90-Day Tobacco Program Goals Do you have family support?: Yes Tobacco Use: Non-smoker Exacerbation Mgmt & Airway Clearance Bronchial Hygiene Plan: Yes: Pt demonstrates correctly for effective cough, Yes: Pt demo correct for improved hydration and Yes: Pt demo correct for hand hygiene Medication Medication reassessment: Yes: Pt demonstrates correct technique timing for MDI, Yes: Pt demonstrates correct technique timing for DPI, Yes: Pt demonstrates correct technique timing for NEB and Yes: Pt demonstrates correct technique laisha ng for spacer Diabetes Diabetes:: No Core Components - Final Visit Session Number:: 7 Hypertension Hypertension Diagnosis:: Hypertension ICD-10 I10 Resting Blood Pressure:: 114/58 [place] [employer] Hypertension Guidelines Peak Exercise Blood Pressure:: 136/84 Outcomes/Goals: Able to verbalize/achieve optimal blood pressure <130/80 and Incorporates diet changes & exercise for blood pressure control by DC Tobacco - Final Tobacco Program Goals Do you have family support?: Yes Tobacco Use: Non-smoker Exacerbation Mgmt & Airway Clearance Bronchial Hygiene Plan: Yes: Pt demonstrates correctly for effective cough, Yes: Pt demo correct for improved hydration and Yes: Pt demo correct for hand hygiene Medication Medication reassessment: Yes: Pt demonstrates correct technique timing for MDI, Yes: Pt demonstrates correct technique timing for DPI, Yes: Pt demonstrates correct technique timing for NEB and Yes: Pt demonstrates correct technique timing for spacer Diabetes Diabetes:: No Patient Health Questionnaire PHQ-9 Screening 30-Day Re-eval Assessment: 1. Little interest or pleasure in doing things: Not at all 2. Feeling down, depressed, or hopeless: Not at all 3. Trouble falling or staying asleep, or sleeping too much: Not at all 4. Feeling tired or having little energy: Several days 5. Poor appetite or overeating: Several days 6. Feeling bad about yourself -- or that you are a failure or have let yourself or your family down: Several days 7. Trouble concentrating on things, such as reading the newspaper or watching television: Not at all 8. Moving or speaking so slowly that other people could have noticed. Or the opposite - being so fidgety or restless that you have been moving around a lot more than usual: Not at all 9. Thoughts that you would be better off , or of hurting yourself in some way: Not at all Total Score: 3 Knowledge Questionaire (BCKQ) Information Information: [place] COPD Knowledge Questionnaire (BCKQ) This questionnaire is designed to find out what you know about your lung problem. It should be completed without help form anyone else. This usually takes between 10 and 20 minutes. Your answers will help us to find out what information you need to help you to understand and manage your lung condition. [place] which you think is the correct answer. COPD Assessment Test [CAT] Questions Never cough = 0, Cough all the time = 5: 2 No phlegm = 0, Chest full of phlegm = 5: 0 No chest tightness = 0, Chest very tight = 5: 0 No breathless w/exertion = 0, Very breathless w/exertion = 5: 3 No limitations w/activity = 0, Very limited w/activity = 5: 3 Confident leaving home = 0, Not at all confident = 5: 1 Sleep soundly = 0, Don't sleep soundly = 5: 1 Lots of energy = 0, No energy at all = 5: 3 Total CAT score:: 13 Self-Efficacy 6-Item Scale 30-Day Re-eval Assessment: We would like to know how confident you are in doing certain activities. Please select your confidence level for: Fatigue Select Number: 4 Physical Discomfort or Pain Select Number: 6 Emotional Distress Select Number: 9 Other Symptoms or Health Problems Select Number: 6 Different Tasks and Activities Select Number: 9 Medication Select Number: 9 Total Score:: 7 Nutrition Survey Nutrition Survey Instructions Scoring Instructions
[2024-01-06 07:09] VITALS: BP 114/58; BP 136/84; O2SAT 89; BMI 27.8
== END 2024-01-06 23:59 ==
LOC: PR 13:00
PROVIDERS: PCP Internal Medicine; Referring Provider Internal Medicine Pulmonary Disease; Visit Provider Internal Medicine Pulmonary Disease
DX: J44.9 Chronic obstructive pulmonary disease, unspecified (principal)
CPT/HCPCS: 97150; 94626

== ENCOUNTER 2024-02-06 13:00 | Outpatient (RCR) | payer MEDICARE, OTHER, SELFPAY ==
[2024-01-06 07:09] VITALS: BMI 27.8
[2024-01-07 00:53] VITALS: BP 114/58; BP 136/84; BMI 27.8
--- NOTE | 2024-02-06 07:57 | PR.ITP_ITS ---
Exercise - Initial Assessment Visit Session Number:: 18 Physician Prescribed Exercise Modalities: Treadmill, Schwinn Airdyne AD-7 and SciFit Stepper Current RPD:: 2 Maximum Exercise HR:: 111 Resting Blood Pressure: 124/58 Maximum Exercise Blood Pressure: 144/62 Minimum SpO2 with exercise: 90 EKG Type: SR to ST with occas PVC's Nutrition/Wt Mgmt - Initial Visit Session Number:: 18 Weight Management Admit Height:: 5 ft 7 in Admit Weight:: 180 lb Admit BMI:: 28.1 Nutrition/Wt Mgmt - 30-Day Visit Date of Eval: 02/06/24 Session Number:: 18 Weight Management Height: 5 ft 7 in Weight:: 180 lb BMI: 28.1 Nutrition/Wt Mgmt - 60-Day Visit Date of Eval: 02/06/24 Session Number:: 18 Weight Management Height: 5 ft 7 in Weight:: 180 lb BMI: 28.1 Weight Goals Progress:: Goal met Nutrition/Wt Mgmt - 90-Day Visit Session Number:: 18 Weight Management Height: 5 ft 7 in Weight:: 180 lb BMI: 28.1 Weight Goals Progress:: Goal met Nutrition/Wt Mgmt - Final Visit Session Number:: 18 Weight Management Height: 5 ft 7 in Weight:: 180 lb BMI: 28.1 Psychosocial - Initial Assess Visit Session Number:: 18 Intervention/Plan: See List Interventions/Plan:: Assess stressors,coping strategies & signs of derpression on admission, Instruct/assist pt to develop coping & personal stress Mgt strategies, Refer to Behavioral Health if appropriate, Refer to Physician if appropriate, Instruct patient to recognize signs & symptoms of depression, Instruct patient to recog and Other additional plan/intervention Psychosocial - 30-Day Visit Date of Eval: 02/06/24 Session Number:: 18 Plan Interventions/Plan:: Assess stressors,coping strategies & signs of derpression on admission, Instruct/assist pt to develop coping & personal stress Mgt strategies, Refer to Behavioral Health if appropriate, Refer to Physician if appropriate, Instruct patient to recognize signs & symptoms of depression, Instruct patient to recog and Other additional plan/intervention Psychosocial - 60-Day Visit Date of Eval: 02/06/24 Session Number:: 18 Plan Interventions/Plan:: Assess stressors,coping strategies & signs of derpression on admission, Instruct/assist pt to develop coping & personal stress Mgt strategies, Refer to Behavioral Health if appropriate, Refer to Physician if appropriate, Instruct patient to recognize signs & symptoms of depression, Instruct patient to recog and Other additional plan/intervention Psychosocial - 90-Day Visit Session Number:: 18 Plan Interventions/Plan:: Assess stressors,coping strategies & signs of derpression on admission, Instruct/assist pt to develop coping & personal stress Mgt strategies, Refer to Behavioral Health if appropriate, Refer to Physician if appropriate, Instruct patient to recognize signs & symptoms of depression, Instruct patient to recog and Other additional plan/intervention Psychosocial - Final Assess Visit Session Number:: 18 Plan Interventions/Plan:: Assess stressors,coping strategies & signs of derpression on admission, Instruct/assist pt to develop coping & personal stress Mgt strategies, Refer to Behavioral Health if appropriate, Refer to Physician if appropriate, Instruct patient to recognize signs & symptoms of depression, Instruct patient to recog and Other additional plan/intervention Oxygen & Oxygen Titration Init Visit Session Number:: 18 Initial Assessment SpO2:: 90 Oxygen & Oxygen Titration 30D Visit Date of Eval: 02/06/24 Session Number:: 18 Reassessment Breath Sounds:: Diminished and Expiratory Wheezes SpO2:: 90 Oxygen & Oxygen Titration 60D Visit Date of Eval: 02/06/24 Session Number:: 18 Reassessment Breath Sounds:: Diminished and Expiratory Wheezes SpO2:: 90 Oxygen & Oxygen Titration 90D Visit Date of Eval: 02/06/24 Session Number:: 18 Reassessment Breath Sounds:: Diminished and Expiratory Wheezes SpO2:: 90 Oxygen & Oxygen Titration DANILO Visit Date of Eval: 02/06/24 Session Number:: 18 Reassessment Breath Sounds:: Diminished and Expiratory Wheezes SpO2:: 90 Core Components - Initial Visit Session Number:: 18 Hypertension Hypertension Diagnosis:: Hypertension ICD-10 I10 BP: 124/58 [place] [employer] Hypertension Guidelines Blood Pressure: 144/62 Core Components - 30 DAYS Visit Date of Eval: 02/06/24 Session Number:: 18 Hypertension Hypertension Diagnosis:: Hypertension ICD-10 I10 Resting Blood Pressure:: 124/58 [place] [employer] Hypertension Guidelines Peak Exercise Blood Pressure:: 144/62 Core Components - 60 DAYS Visit Date of Eval: 02/06/24 Session Number:: 18 Hypertension Hypertension Diagnosis:: Hypertension ICD-10 I10 Resting Blood Pressure:: 124/58 [place] [employer] Hypertension Guidelines Peak Exercise Blood Pressure:: 144/62 Core Components - 90 DAYS Visit Session Number:: 18 Hypertension Hypertension Diagnosis:: Hypertension ICD-10 I10 Resting Blood Pressure:: 124/58 [place] [employer] Hypertension Guidelines Peak Exercise Blood Pressure:: 144/62 Core Components - Final Visit Session Number:: 18 Hypertension Hypertension Diagnosis:: Hypertension ICD-10 I10 Resting Blood Pressure:: 124/58 [place] [employer] Hypertension Guidelines Peak Exercise Blood Pressure:: 144/62 Patient Health Questionnaire PHQ-9 Screening 60-Day Re-eval Assessment: 1. Little interest or pleasure in doing things: Not at all 2. Feeling down, depressed, or hopeless: Not at all 3. Trouble falling or staying asleep, or sleeping too much: Not at all 4. Feeling tired or having little energy: Several days 5. Poor appetite or overeating: Several days 6. Feeling bad about yourself -- or that you are a failure or have let yourself or your family down: Several days 7. Trouble concentrating on things, such as reading the newspaper or watching television: Several days 8. Moving or speaking so slowly that other people could have noticed. Or the opposite - being so fidgety or restless that you have been moving around a lot more than usual: Not at all 9. Thoughts that you would be better off , or of hurting yourself in some way: Not at all Total Score: 4 Knowledge Questionaire (BCKQ) Information Information: [place] COPD Knowledge Questionnaire (BCKQ) This questionnaire is designed to find out what you know about your lung problem. It should be completed without help form anyone else. This usually takes between 10 and 20 minutes. Your answers will help us to find out what information you need to help you to understand and manage your lung condition. [place] which you think is the correct answer. Self-Efficacy 6-Item Scale 60-Day Re-eval Assessment: We would like to know how confident you are in doing certain activities. Please select your confidence level for: Fatigue Select Number: 4 Physical Discomfort or Pain Select Number: 6 Emotional Distress Select Number: 9 Other Symptoms or Health Problems Select Number: 6 Different Tasks and Activities Select Number: 9 Medication Select Number: 9 Total Score:: 7 Nutrition Survey Nutrition Survey Instructions Scoring Instructions
[2024-02-06 08:02] VITALS: BP 124/58; O2SAT 90; BMI 28.1
[2024-02-06 08:06] VITALS: BP 124/58; BP 144/62
== END 2024-02-06 23:59 ==
LOC: PR 13:00
PROVIDERS: PCP Internal Medicine; Referring Provider Internal Medicine Pulmonary Disease; Visit Provider Internal Medicine Pulmonary Disease
DX: J44.9 Chronic obstructive pulmonary disease, unspecified (principal)
CPT/HCPCS: 97150; 94626

== ENCOUNTER 2024-03-05 13:00 | Outpatient (RCR) | payer MEDICARE, OTHER, SELFPAY ==
[2024-02-07 01:11] VITALS: BP 114/58; BP 136/84; BMI 27.8
== END 2024-03-07 23:59 ==
LOC: PR 13:00
PROVIDERS: PCP Internal Medicine; Referring Provider Internal Medicine Pulmonary Disease; Visit Provider Internal Medicine Pulmonary Disease
DX: J44.9 Chronic obstructive pulmonary disease, unspecified (principal)
CPT/HCPCS: 97150; 94626

== ENCOUNTER 2024-04-02 13:00 | Outpatient (RCR) | payer MEDICARE, OTHER, SELFPAY ==
[2024-02-07 01:11] VITALS: BMI 27.8
[2024-03-08 00:37] VITALS: BP 114/58; BP 136/84; BMI 27.8
--- NOTE | 2024-03-08 09:17 | PCM.PR.TP ---
Exercise - Initial Assessment Visit Session Number:: 26 Physician Prescribed Exercise Modalities: Treadmill, Schwinn Airdyne AD-7 and SciFit Stepper Target RPE 12-16:: 12-13 Current RPD:: 2-3 Maximum Exercise HR:: 111 Resting Blood Pressure: 130/34 Maximum Exercise Blood Pressure: 146/70 Minimum SpO2 with exercise: 89 EKG Type: SR to ST with occas PVC's Nutrition/Wt Mgmt - Initial Visit Session Number:: 26 Weight Management Admit Height:: 5 ft 7 in Admit Weight:: 180 lb Admit BMI:: 28.1 Nutrition/Wt Mgmt - 30-Day Visit Date of Eval: 03/08/24 Session Number:: 26 Weight Management Height: 5 ft 7 in Weight:: 180 lb BMI: 28.1 Nutrition/Wt Mgmt - 60-Day Visit Date of Eval: 03/08/24 Session Number:: 26 Weight Management Weight Assessment:: Wt stable Height: 5 ft 7 in Weight:: 180 lb BMI: 28.1 Weight Goals Progress:: Goal met Nutrition/Wt Mgmt - 90-Day Visit Session Number:: 26 Weight Management Weight Assessment:: Wt stable Height: 5 ft 7 in Weight:: 180 lb BMI: 28.1 Weight Goals Progress:: Goal met Nutrition/Wt Mgmt - Final Visit Session Number:: 26 Weight Management Height: 5 ft 7 in Weight:: 180 lb BMI: 28.1 Psychosocial - Initial Assess Visit Session Number:: 26 Problems/Goals Psychosocial Goals: 1. Patient is free from overwhelming symtoms of depression (or anxiety, 2. Identifies personal stressors & states the strategies for managing, 3. Identifies activities to decrease isolation and/or symptoms of and 4. Improved psychosocial coping skills. Intervention/Plan: See List Interventions/Plan:: Assess stressors,coping strategies & signs of derpression on admission, Instruct/assist pt to develop coping & personal stress Mgt strategies and Instruct patient to recognize signs & symptoms of depression Psychosocial - 30-Day Visit Date of Eval: 03/08/24 Session Number:: 26 Problems/Goals Psychosocial Goals: 1. Patient is free from overwhelming symtoms of depression (or anxiety, 2. Identifies personal stressors & states the strategies for managing, 3. Identifies activities to decrease isolation and/or symptoms of and 4. Improved psychosocial coping skills. Plan Interventions/Plan:: Assess stressors,coping strategies & signs of derpression on admission, Instruct/assist pt to develop coping & personal stress Mgt strategies and Instruct patient to recognize signs & symptoms of depression Psychosocial - 60-Day Visit Date of Eval: 03/08/24 Session Number:: 26 Problems/Goals Psychosocial Goals: 1. Patient is free from overwhelming symtoms of depression (or anxiety, 2. Identifies personal stressors & states the strategies for managing, 3. Identifies activities to decrease isolation and/or symptoms of and 4. Improved psychosocial coping skills. Plan Interventions/Plan:: Assess stressors,coping strategies & signs of derpression on admission, Instruct/assist pt to develop coping & personal stress Mgt strategies and Instruct patient to recognize signs & symptoms of depression Psychosocial - 90-Day Visit Session Number:: 26 Problems/Goals Psychosocial Goals: 1. Patient is free from overwhelming symtoms of depression (or anxiety, 2. Identifies personal stressors & states the strategies for managing, 3. Identifies activities to decrease isolation and/or symptoms of and 4. Improved psychosocial coping skills. Plan Interventions/Plan:: Assess stressors,coping strategies & signs of derpression on admission, Instruct/assist pt to develop coping & personal stress Mgt strategies and Instruct patient to recognize signs & symptoms of depression Psychosocial - Final Assess Visit Session Number:: 26 Problems/Goals Psychosocial Goals: 1. Patient is free from overwhelming symtoms of depression (or anxiety, 2. Identifies personal stressors & states the strategies for managing, 3. Identifies activities to decrease isolation and/or symptoms of and 4. Improved psychosocial coping skills. Plan Interventions/Plan:: Assess stressors,coping strategies & signs of derpression on admission, Instruct/assist pt to develop coping & personal stress Mgt strategies and Instruct patient to recognize signs & symptoms of depression Oxygen & Oxygen Titration Init Visit Session Number:: 26 Initial Assessment SpO2:: 89 Oxygen & Oxygen Titration 30D Visit Date of Eval: 03/08/24 Session Number:: 26 Reassessment Breath Sounds:: Diminished and Expiratory Wheezes SpO2:: 89 Oxygen & Oxygen Titration 60D Visit Date of Eval: 03/08/24 Session Number:: 26 Reassessment Breath Sounds:: Diminished and Expiratory Wheezes SpO2:: 89 Oxygen & Oxygen Titration 90D Visit Date of Eval: 03/08/24 Session Number:: 26 Reassessment Breath Sounds:: Diminished and Expiratory Wheezes SpO2:: 89 Oxygen & Oxygen Titration DANILO Visit Date of Eval: 03/08/24 Session Number:: 26 Reassessment Breath Sounds:: Diminished and Expiratory Wheezes SpO2:: 89 Core Components - Initial Visit Session Number:: 26 Hypertension Hypertension Diagnosis:: Hypertension ICD-10 I10 BP: 130/34 [place] [employer] Hypertension Guidelines Blood Pressure: 146/70 Outcomes/Goals: Able to verbalize/achieve optimal blood pressure <130/80, Incorporates diet changes & exercise for blood pressure control by DC and Other additional outcomes/goals Tobacco - Initial Assessment Tobacco Program Goals Tobacco Use: Non-smoker Core Components - 30 DAYS Visit Date of Eval: 03/08/24 Session Number:: 26 Hypertension Hypertension Diagnosis:: Hypertension ICD-10 I10 Resting Blood Pressure:: 130/34 [place] [employer] Hypertension Guidelines Peak Exercise Blood Pressure:: 146/70 Change in medication: No Outcomes/Goals: Able to verbalize/achieve optimal blood pressure <130/80, Incorporates diet changes & exercise for blood pressure control by DC and Other additional outcomes/goals Interventions/plan: Instruct on optimal blood pressure, hypertension & medications, Instruct on effects of sodium, alcohol, stress, exercise &hypertension and Other additional plan/interventions 30 day Reassessments:: Met Tobacco - 30-Day Tobacco Program Goals Tobacco Use: Non-smoker Core Components - 60 DAYS Visit Date of Eval: 03/08/24 Session Number:: 26 Hypertension Hypertension Diagnosis:: Hypertension ICD-10 I10 Resting Blood Pressure:: 130/34 [place] [employer] Hypertension Guidelines Peak Exercise Blood Pressure:: 146/70 Change in medication: No Outcomes/Goals: Able to verbalize/achieve optimal blood pressure <130/80, Incorporates diet changes & exercise for blood pressure control by DC and Other additional outcomes/goals Interventions/plan: Instruct on optimal blood pressure, hypertension & medications, Instruct on effects of sodium, alcohol, stress, exercise &hypertension and Other additional plan/interventions 60 day Reassessments:: Met Tobacco - 60-Day Tobacco Program Goals Tobacco Use: Non-smoker Medication Medication list reviewed:: Yes Core Components - 90 DAYS Visit Session Number:: 26 Hypertension Hypertension Diagnosis:: Hypertension ICD-10 I10 Resting Blood Pressure:: 130/34 [place] [employer] Hypertension Guidelines Peak Exercise Blood Pressure:: 146/70 Outcomes/Goals: Able to verbalize/achieve optimal blood pressure <130/80, Incorporates diet changes & exercise for blood pressure control by DC and Other additional outcomes/goals Interventions/plan: Instruct on optimal blood pressure, hypertension & medications, Instruct on effects of sodium, alcohol, stress, exercise &hypertension and Other additional plan/interventions 90 day Reassessments:: Met Tobacco - 90-Day Tobacco Program Goals Tobacco Use: Non-smoker Core Components - Final Visit Session Number:: 26 Hypertension Hypertension Diagnosis:: Hypertension ICD-10 I10 Resting Blood Pressure:: 130/34 [place] [employer] Hypertension Guidelines Peak Exercise Blood Pressure:: 146/70 Outcomes/Goals: Able to verbalize/achieve optimal blood pressure <130/80, Incorporates diet changes & exercise for blood pressure control by DC and Other additional outcomes/goals Tobacco - Final Tobacco Program Goals Tobacco Use: Non-smoker Patient Health Questionnaire PHQ-9 Screening 60-Day Re-eval Assessment: 1. Little interest or pleasure in doing things: Not at all 2. Feeling down, depressed, or hopeless: Not at all 3. Trouble falling or staying asleep, or sleeping too much: Not at all 4. Feeling tired or having little energy: Several days 5. Poor appetite or overeating: Several days 6. Feeling bad about yourself -- or that you are a failure or have let yourself or your family down: Several days 7. Trouble concentrating on things, such as reading the newspaper or watching television: Not at all 8. Moving or speaking so slowly that other people could have noticed. Or the opposite - being so fidgety or restless that you have been moving around a lot more than usual: Not at all 9. Thoughts that you would be better off , or of hurting yourself in some way: Not at all How difficult have these problems made it for you to do your work, take care of things at home, or get along with other people?: Not difficult at all Total Score: 3 Knowledge Questionaire (BCKQ) Information Information: [place] COPD Knowledge Questionnaire (BCKQ) This questionnaire is designed to find out what you know about your lung problem. It should be completed without help form anyone else. This usually takes between 10 and 20 minutes. Your answers will help us to find out what information you need to help you to understand and manage your lung condition. [place] which you think is the correct answer. Self-Efficacy 6-Item Scale 60-Day Re-eval Assessment: We would like to know how confident you are in doing certain activities. Please select your confidence level for: Fatigue Select Number: 4 Physical Discomfort or Pain Select Number: 6 Emotional Distress Select Number: 9 Other Symptoms or Health Problems Select Number: 6 Different Tasks and Activities Select Number: 9 Medication Select Number: 9 Total Score:: 7 Nutrition Survey Nutrition Survey Instructions Scoring Instructions
[2024-03-08 09:28] VITALS: BP 130/34; BP 146/70; O2SAT 89; BMI 28.1
== END 2024-04-07 23:59 ==
LOC: PR 13:00
PROVIDERS: PCP Internal Medicine; Referring Provider Internal Medicine Pulmonary Disease; Visit Provider Internal Medicine Pulmonary Disease
DX: J44.9 Chronic obstructive pulmonary disease, unspecified (principal)
CPT/HCPCS: 97150; 94626

== ENCOUNTER → 2024-04-14 | Outpatient (CLI) | payer MEDICARE, OTHER, SELFPAY ==
[2024-03-08 09:28] VITALS: BMI 28.1
[2024-04-08 00:19] VITALS: BMI 27.8
--- NOTE | 2024-04-14 12:46 | CT_ITS ---
STUDY: LOW DOSE CT LUNG CANCER SCREENING REASON FOR EXAM: Male, 79 years old. Personal history of nicotine dependence RADIATION DOSAGE (If Supplied By Facility): CTDIvol = ( 1.59 ) mGy, DLP = ( 58.18 ) mGycm TECHNIQUE: No contrast was administered. Low dose technique was utilized (average mAS-38 and kVp 120). 1.25 mm axial source images with a slice interval of 1.25-mm were reconstructed in lung windows. 2.5 mm axial source images with a slice interval of 2.5-mm were reconstructed in lung windows. 5.0 mm axial source images with a slice interval of 5.0-mm were reconstructed in soft tissue windows. COMPARISON: Prior study dated: 10/02/2023 NODULES: Nodule #: 1 Density: Solid Lung location: Right upper lobe: 3.3 cm from pleura Location in series: Series Number: 2 Image: 122 Size -0.3 cm average diameter Margin: Smooth Shape: Round Calcification: None Temporal comparison: New from prior. Nodule #: 2 Density: Solid Lung location: Right upper lobe: 2.5 cm from pleura Location in series: Series Number: 2 Image: 63 Size -0.6 cm average diameter Margin: Spiculated Temporal comparison: Unchanged from previous. Total lung nodules (excluding granulomas): 2 Emphysema: Severe centrilobular and paraseptal emphysema. Endobronchial lesion: None Aorta: Normal caliber with mild atherosclerotic calcification. CORONARY ARTERIES: Coronary artery calcification is seen. Heart: Normal size. No pericardial effusion. Pulmonary artery: Normal size. Mediastinal nodes: No lymphadenopathy. Other chest and abdominal findings: Since no pneumothorax. No pleural effusion. Minimal linear atelectasis of the superior segment of the left lower lobe. No adrenal mass seen. The liver appears heterogeneous but is not well assessed on these images. Previously cysts are visualized. CT/Low Dose CT Lung Screening IMPRESSION: Lung-RADS category 2 - Continue annual screening with LDCT in 12 months. Severe emphysema. IMPORTANT NOTES FOR USE: ACR Lung-RADS Version 1.1 Assessment Categories Release Date: 2018 Category: Coded 0-4 bases on nodule(s) with highest degree of suspicion. Negative screen is defined as categories 1 and 2; a positive screen is defined as categories 3 and 4. Category 3 and 4A nodules that are unchanged on interval CT should be coded as category 2, and individuals returned to screening in 12 months. Category 4X: Category 3 or 4 nodules with additional imaging findings that increase the suspicion of lung cancer, such as spiculation, GGN that doubles in size in 1 year, enlarged lymph notes, etc. Category Modifiers: S (significant finding unrelated to lung cancer) Electronically Signed: Cordell Vega MD at 10:48 EDT ,
== END | disposition home or self-care (01) ==
PROVIDERS: PCP Internal Medicine; Referring Provider Internal Medicine Pulmonary Disease; Visit Provider Internal Medicine Pulmonary Disease
DX: R91.1 Solitary pulmonary nodule (principal); Z87.891 Personal history of nicotine dependence
CPT/HCPCS: 71271

== ENCOUNTER → 2024-05-05 | Outpatient (CLI) | payer MEDICARE, OTHER, SELFPAY ==
[2024-05-05 13:46] VITALS: BMI 28.1
== END | disposition home or self-care (01) ==
LOC: MTLAB 13:47
PROVIDERS: PCP Internal Medicine; Referring Provider Urology; Visit Provider Urology
DX: Z12.5 Encounter for screening for malignant neoplasm of prostate (principal)
CPT/HCPCS: 36415; 84153; G0103

== ENCOUNTER → 2024-08-11 | Outpatient (CLI) | payer MEDICARE, OTHER, SELFPAY ==
[2024-05-05 13:46] VITALS: BMI 28.1
--- NOTE | 2024-08-11 13:40 | CDU_ITS ---
Reason For Study: Carotid stenosis Rt. Velocities/BP Lt. Velocities/BP Prox CCA 65.5/13.5 cm/sec. Prox CCA 62.6/15.4 cm/sec. Mid CCA 73/17.3 cm/sec. Mid CCA 58.9/18.2 cm/sec. Dist CCA 60.7/12.6 cm/sec. Dist CCA 61.7/18.2 cm/sec. Prox ICA 58.1/18.8 cm/sec. Prox ICA 65.5/19.2 cm/sec. Mid ICA 74/23.7 cm/sec. Mid ICA 61.5/20.6 cm/sec. Dist ICA 82.6/29.8 cm/sec. Dist ICA 59.8/20.1 cm/sec. Rt. ICA/CCA = 1.13. Lt. ICA/CCA = 1.11. Prox ECA 113.3/17.6 cm/sec. Prox ECA 171.8/11.1 cm/sec. Rt. Vert. 34.3/11.6 cm/sec. Lt. Vert. 32.5/9 cm/sec. Right Extracranial There is homogeneous, smooth atherosclerotic plaque noted in the right common carotid artery. There is heterogeneous, irregular atherosclerotic plaque noted in the right internal carotid artery. There is intimal thickening but no significant atherosclerotic plaque noted in the right external carotid artery. Antegrade flow is noted in the right vertebral artery. Left Extracranial There is heterogeneous, irregular atherosclerotic plaque noted in the left common carotid artery. There is heterogeneous, irregular atherosclerotic plaque noted in the left internal carotid artery. There is heterogeneous, irregular atherosclerotic plaque noted in the left external carotid artery. Antegrade flow is noted in the left vertebral artery. Procedure Carotid Duplex [id number]. This is a Carotid Duplex examination using B-mode, color flow and specral Doppler. Exam performed in department. VL/Carotid Duplex Ultrasound Interpretation Summary Mild (<50%) stenosis right extracranial internal carotid. Mild (<50%) stenosis left extracranial internal carotid. Flow within the vertebral arteries is antegrade bilaterally. Ordering Physician: Yen Hamlin Referring Physician: Yen Hamlin Performed By: Clementina Jo RVT
== END | disposition home or self-care (01) ==
LOC: CVS 13:39
PROVIDERS: PCP Internal Medicine; Referring Provider Internal Medicine; Visit Provider Internal Medicine
DX: I65.23 Occlusion and stenosis of bilateral carotid arteries (principal)
CPT/HCPCS: 93880

== ENCOUNTER → 2025-02-17 | Outpatient (CLI) | payer MEDICARE, OTHER, SELFPAY ==
[2024-05-05 13:46] VITALS: BMI 28.1
[2025-02-17 15:54] LABS: Absolute Lymphocyte Count 0.88 X10^3/uL (0.83-4.51); Basophil# 0.07 X10^3/uL; Basophil% 0.9 % (0-1); Eosinophil# 0.47 X10^3/uL; Eosinophils% 6.3 % (0-5); Hematocrit 40.6 % (40-54); Hemoglobin 13.4 g/dL (13.0-16.5); Lymphocyte # 0.88 X10^3/ul (0.83-4.51); Lymphocyte % 11.8 % (19-41); Mean Corpuscular Hgb 29.2 pg (27.0-32.0); Mean Corpuscular Volume 88.5 fL (80-94); Mean Platelet Vol. 9.8 fl (6.2-12.0); Monocyte# 1.01 X10^3/uL; Monocyte% 13.5 % (0-10); NRBC Flagged by Analyzer 0 % (0-5); Neutrophil # 5.01 X10^3/uL (2.7-7.7); Neutrophil % 67.2 % (47-70); Platelet Count 351 K/mm3 (150-450); RBC Distribution Width SD 45.4 fl (35.1-43.9); Red Blood Count 4.59 M/mm3 (4.6-6.2); White Blood Count 7.5 K/mm3 (4.4-11.0)
== END | disposition home or self-care (01) ==
LOC: MTLAB 12:55
PROVIDERS: PCP Internal Medicine; Referring Provider Internal Medicine Pulmonary Disease; Visit Provider Internal Medicine Pulmonary Disease
DX: R09.02 Hypoxemia (principal); J44.9 Chronic obstructive pulmonary disease, unspecified
CPT/HCPCS: 36415; 85025

== ENCOUNTER → 2025-03-18 | Outpatient (CLI) | payer MEDICARE, OTHER, SELFPAY ==
[2024-05-05 13:46] VITALS: BMI 28.1
== END | disposition home or self-care (01) ==
LOC: PSN 11:49
PROVIDERS: PCP Internal Medicine; Referring Provider Nurse Practitioner Gerontology; Visit Provider Nurse Practitioner Gerontology
DX: I48.0 Paroxysmal atrial fibrillation (principal)
CPT/HCPCS: 93225; 93226

== ENCOUNTER → 2025-04-19 | Outpatient (CLI) | payer MEDICARE, OTHER, SELFPAY ==
[2024-05-05 13:46] VITALS: BMI 28.1
== END | disposition home or self-care (01) ==
PROVIDERS: PCP Internal Medicine; Referring Provider Internal Medicine; Visit Provider Internal Medicine
DX: R05.9 Cough, unspecified (principal)
CPT/HCPCS: 87070; 87077; 87186; 87205

== ENCOUNTER → 2025-04-21 | Outpatient (CLI) | payer MEDICARE, OTHER, SELFPAY ==
[2024-05-05 13:46] VITALS: BMI 28.1
--- NOTE | 2025-04-21 13:17 | CT_ITS ---
PROCEDURE: CHEST WITHOUT CONTRAST 04/21/2025 REASON FOR EXAM: SOLITARY PULM NODULE/HYPOXEMIA TECHNIQUE: Chest CT without contrast. Coronal and Sagittal reconstruction series were provided. One or more dose reduction techniques were used (e.g., Automated exposure control, adjustment of the mA and/or kV according to patient size, use of iterative reconstruction technique RADIATION DOSE SUMMARY: CTDlvol: 7.01 mGy DLP: 247.51 mGycm COMPARISON: 04/14/2024. FINDINGS: Hardware: None Lymph nodes: No significant lymph nodes are seen. Heart and Vasculature: The heart is not enlarged. Atherosclerotic calcifications of the thoracic aorta. Thoracic aorta and pulmonary arteries have normal contours; noncontrast technique limits evaluation. Coronary Artery Calcifications: Present Lungs and Airways: Stable 3 mm well-defined nodule in the right upper lobe as seen on axial image number 60. Stable 6 mm well-defined nodule in the right upper lobe. This is seen on axial image number 25. Moderate emphysematous changes. Pleura: No pleural effusion Upper Abdomen: Unremarkable Bones: Degenerative changes of the thoracic spine. CT/Chest without Contrast IMPRESSION: Coronary artery calcification (CAC) is is present Stable examination. Reading Location: [facility]
== END | disposition home or self-care (01) ==
LOC: CT 13:15
PROVIDERS: PCP Internal Medicine; Referring Provider Internal Medicine Pulmonary Disease; Visit Provider Internal Medicine Pulmonary Disease
DX: R91.1 Solitary pulmonary nodule (principal); R09.02 Hypoxemia
CPT/HCPCS: 71250

== ENCOUNTER → 2025-04-25 | Outpatient (CLI) | payer MEDICARE, OTHER, SELFPAY ==
[2024-05-05 13:46] VITALS: BMI 28.1
== END | disposition home or self-care (01) ==
LOC: MTLAB 14:01
PROVIDERS: PCP Internal Medicine; Referring Provider Internal Medicine; Visit Provider Internal Medicine
DX: Z51.81 Encounter for therapeutic drug level monitoring (principal)
CPT/HCPCS: 36415; 84443

== ENCOUNTER → 2025-04-26 | Outpatient (CLI) | payer MEDICARE, OTHER, SELFPAY ==
[2024-05-05 13:46] VITALS: BMI 28.1
== END | disposition home or self-care (01) ==
LOC: RAD 10:08
PROVIDERS: PCP Internal Medicine; Referring Provider Internal Medicine; Visit Provider Internal Medicine
DX: Z00.00 Encounter for general adult medical examination without abnormal findings (principal)

== ENCOUNTER → 2025-05-05 | Outpatient (CLI) | payer MEDICARE, OTHER, SELFPAY ==
[2024-05-05 13:46] VITALS: BMI 28.1
[2025-05-05 12:47] LABS: PSA,Total - Annual Screen 0.92 ng/mL (0.02-4.00)
== END | disposition home or self-care (01) ==
LOC: LAB 11:19
PROVIDERS: PCP Internal Medicine; Referring Provider Urology; Visit Provider Urology
DX: Z12.5 Encounter for screening for malignant neoplasm of prostate (principal)
CPT/HCPCS: 36415; 84153; G0103

== ENCOUNTER → 2025-05-11 | Outpatient (CLI) | payer MEDICARE, OTHER, SELFPAY ==
[2024-05-05 13:46] VITALS: BMI 28.1
== END | disposition home or self-care (01) ==
LOC: LAB.FUTURE 12:41
PROVIDERS: PCP Internal Medicine; Visit Provider Internal Medicine Pulmonary Disease
DX: J44.9 Chronic obstructive pulmonary disease, unspecified (principal)
CPT/HCPCS: 87070; 87077; 87186; 87205

== ENCOUNTER → 2025-05-27 | Outpatient (CLI) | payer MEDICARE, OTHER, SELFPAY ==
[2024-05-05 13:46] VITALS: BMI 28.1
--- NOTE | 2025-05-27 14:06 | SP.MBSS_ITS ---
Modified Barium Swallow Patient Information Study Date: 05/27/25 Study Time: 13:05 Direct Billable Minutes: 116 Total Minutes procedure & reportin Diagnosis: Dysphagia R13.10 Referring Physician: Yen Hamlin Reason for Referral: Objectively assess swallow function, assess risk for aspiration, and determine recommendations for least restrictive diet textures and compensatory strategies to improve safety of swallow. Medical History: The patient was planned for esophagram earlier this month, but it was canceled due to chart review revealing concerns for high aspiration risk w/ thin liquids. He was recommended for this MBSS to determine if he was safe for participation in esophagram. Of note, the patient reports having an EGD this past Friday w/ Dr. Pete during which the patient had esophageal dilation and biopsies taken in the esophagus (biopsy results pending). Hx of oropharyngeal dysphagia w/ MBSS 03/27/2017 revealing severe pharyngeal and mild pharyngoesophageal dysphagia w/ silent aspiration of thin liquids via tsp, thin liquids via cup (w/ and w/o chin tuck), and nectar/mildly thick liquids via cup. The patient was recommended for puree textures / honey (moderately) thick liquids w/ compensatory strategies to decrease risk for aspiration. See study for full results and recommendations. Pt reported briefly trying thickened liquids, but he resumed a regular textured / thin liquid diet due to dislike of purees and moderately thick liquids. He told this MAT MAKING MACHINE TENDER that he would not be thickening liquids again. MBSS recommended the patient for speech therapy services, but stated he did not follow up w/ speech therapy as he was not aware this referral was ever recommended. The patient reports hospitalization ~4-5 years ago due to inhalation of hamburger meat as he was speaking while eating w/ need for supplemental O2 ever since. The patient denied hx of PNA despite findings of aspiration pneumonitis and PNA in EMR chart review. Medical History Acute respiratory failure with hypoxia Acute upper respiratory infection Anxiety and depression Aortic aneurysm of unspecified site without mention of rupture Aspiration pneumonitis Atherosclerotic heart disease of [place] coronary artery without angina pectoris BPH (benign prostatic hyperplasia) CKD (chronic kidney disease), stage III COPD (chronic obstructive pulmonary disease) Dizziness and giddiness Essential (primary) hypertension Former smoker Former tobacco use GERD (gastroesophageal reflux disease) Hyperlipidemia IBS (irritable bowel syndrome) Irregular heart beat Multiple premature ventricular complexes 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 PER TRIAL): PENETRATION / ASPIRATION SCALE (HENRIQUEZ): 1 = does not enter airway 2 = enters airway/above vocal folds/ejected 3 = enters airway/above vocal folds/not ejected 4 = enters airway/contacts vocal folds/ejected 5 = enters airway/contacts vocal folds/not ejected 6 = enters airway/below vocal folds/ejected 7 = enters airway/below vocal folds/not ejected despite effort 8 = enters airway/below vocal folds/no effort VIDEOFLOROSCOPIC SCALE SCORE (HENRIQUEZ): Grade I = aspiration of material that has penetrated into the laryngeal vestibule, intact cough reflex Grade II = aspiration < 10 % of the bolus, intact cough reflex Grade III = aspiration of < 10 % of the bolus, reduced cough reflex or aspiration of > 10 % of the bolus, intact cough reflex Grade IV = aspiration of > 10 % of the bolus, reduced cough reflex Penetration-Aspiration Scale Score Thin Liquid via teaspoon: Result: 4= enters airway/contacts vocal folds/ejected Comment: Min reflexive throat clear Thin Liquid via teaspoon Trial 2: Result: 3= enters airways/above vocal folds/not ejected Thin Liquid via small single sip: cup: Result: 4= enters airway/contacts vocal folds/ejected [place] Thick Liquid via small single sip: cup: Result: 2= enter airway/above vocal folds/ejected Pudding via teaspoon: Result: 2= enter airway/above vocal folds/ejected Comment: Esophageal screen - Mild retention in the upper esophagus. /2 Cookie: Result: 2= enter airway/above vocal folds/ejected Thin Liquid via single sip: straw: Result: 2= enter airway/above vocal folds/ejected Thin liquid via single sip: cup w/ cues for breath hold, then swallow hard (modified supraglottic): Result: 2= enter airway/above vocal folds/ejected Thin Liquid via single sip: straw Trial 2: Result: 5= enters airways/contacts vocal folds/not ejected Comment: Cued pt for modified supraglottic swallow above, but it was not executed. Laryngeal penetration to the vocal folds w/ reflexive throat clear that cleared majority of contrast from the laryngeal vestibule w/ exception of trace residues on the underside of the epiglottis. Thin Liquid via small single sip: cup Effortful swallow: Result: 5= enters airways/contacts vocal folds/not ejected Thin Liquid via small single sip: cup Chin tuck: Result: 5= enters airways/contacts vocal folds/not ejected Comment: Reflexive throat clear Thin liquid via single sip: cup w/ cues for breath hold, then swallow hard (modified supraglottic) Trial 2: Result: 4= enters airway/contacts vocal folds/ejected Comment: Min reflexive throat clear Barium Tablet w/ Barium Liquid: Result: 5= enters airways/contacts vocal folds/not ejected (PAS of 5 for barium liquid, tablet did not clear from oral cavity) Barium Tablet w/ Pudding: Result: 1= does not enter airway Comment: Esophageal screen - Retention of pudding and tablet in the lower esophagus, which cleared w/ single thin liquid wash Oral Phase Labial Seal: No Labial Escape Tongue Control During Bolus Hold: Posterior escape of greater than half of bolus Bolus Preparation/Mastication: Slow prolonged chewing/mashing with complete recollection Bolus Transport/Lingual Motion: Delayed initiation of tongue motion Oral Residue: Minimal to no clearance (Barium tablet during first attempt) Pharyngeal Phase Initiation of Pharyngeal Swallow: Bolus head in pyriforms Soft Palate Elevation: No bolus between soft palate and pharyngeal wall Laryngeal Elevation: Partial superior movement thyroid cart/partial apprx aryt- epig petiole Anterior Hyoid Excursion: Partial anterior movement Epiglottic Movement: Partial inversion Laryngeal Vestibule Closure at Height of Swallow: Incomplete; narrow column of air/contrast in laryngeal vestibule Pharyngeal Stripping Wave: Present - diminished Pharyngoesophageal Segment Opening: Parital distension and partial duration; parital obstruction of flow Tongue Base Retraction: Wide column of contrast between tongue base & post. pharyngeal wall Pharyngeal Residue: Collection of residue within or on pharyngeal structures Esophageal Phase Esophageal Clearance: Esophageal retention Treatment Strategies Effects of treatment strategies attemped:: Cued breath hold, then hard swallow (modified supraglottic) = somewhat effective (decreased amount of laryngeal penetration) Effortful swallow = somewhat effective (decreased amount of laryngeal penetration) Reflexive throat clear = somewhat effective Chin tuck =not effective Double swallow = somewhat effective Liquid wash = somewhat effective Diagnosis/Impression Diagnosis: Moderate oropharyngeal dysphagia R13.12; Esophageal dysphagia R13.14 MBS Impressions: The oral phase is marked by... -Posterior loss of majority of bolus to the pharynx prior to swallow onset. -Delayed tongue motion w/ A-P transport. Pt had difficulty w/ A-P transport w/ barium tablet. He began to use head tilt during some trials, but MAT MAKING MACHINE TENDER recommends neutral head positioning during the swallow (no head tilt or chin tuck). -Slowed, but complete mastication of cookie. The pharyngeal phase is marked by... -Delayed swallow onset. -Decreased pharyngeal motility due to decreased TB retraction and pharyngeal stripping wave w/ mild-moderate pharyngeal residues, which somewhat cleared w/ independent use of a second swallow. Liquid wash also somewhat helped clear phar yngeal residues. -Deep laryngeal penetration to the vocal folds w/ thin liquids intermittently throughout the evaluation. Use of a modified supraglottic swallow was somewhat effective in decreasing aspiration risk by decreasing amount of laryngeal penetration. Reflexive throat clearing was also somewhat effective in reducing aspiration risk. Chin tuck increased amount of laryngeal penetration and is NOT recommended. No aspiration was observed; however, this patient is at HIGH risk for aspiration. The esophageal phase is marked by... -CP bar at the level of C5-C6, which did not appear to impact bolus clearance through the UES. -Mild retention of pudding in the upper esophagus. -Mild retention of pudding and barium tablet in the lower esophagus, which cleared w/ thin liquid wash. Recommendations Diet: Regular Textures and Thin Liquids Comment: Pills whole in applesauce 1 at a time w/ a liquid wash after each pill Compensatory Strategies: Small Bites (Chew thoroughly), Small Sips (Modified supraglottic swallow --> Hold your breath, then swallow hard. Throat clear and re-swallow if sensation of tickle in throat.), Slow Rate (Sips 1 at a time), Multiple Swallows (Pt independently uses multiple swallows to clear some pharyngeal residues), Alternate bites/solids and sips/liquids, Sitting upright (During and 60min after meals) and Minimize/decrease distractions (Limit speaking w/ po intake) Recommend Repeat Modified Barium Swallow: TBD (If poor diet tolerance or worsening respiratory status, would consider the patient for repeat MBSS.) Need for Skilled Speech Therapy Services: Yes Comment: -Train the patient in strategies to decrease risk for aspiration and choking. -Ongoing assessment of diet tolerance. -Train the patient in oropharyngeal exercise program to improve bolus control, A-P transport, swallow onset, airway closure, and pharyngeal motility (lingual resistance and coordination, Marleny, Autumn, effortful). Recommended Referrals: GI Consult (Continue to follow w/ OP GI as recommended. Pt is not safe for participation in esophagram due to aspiration risk. Esophagram has been cancelled and PCP has been informed.) Education Completed: 1. Described result of evaluation., 2. Pt understands evaluation & agrees with goals and treatment plan. and 7. Pt requires further education on strategies & risks. Comment: MAT MAKING MACHINE TENDER educated the patient thoroughly in results and recommendations of this MBSS w/ discussion and review of images. MAT MAKING MACHINE TENDER educated high risk for aspiration w/ liquids and importance for strict adherence to recommended aspiration precautions. The MAT MAKING MACHINE TENDER also educated the patient in his high choking risk w/ foods that are not fully chewed, as well as increased risk for choking if speaking while eating/drinking. The MAT MAKING MACHINE TENDER also educated the patient in his choking and aspiration risk if taking medications whole w/ liquids, please take whole in a puree w/ a liquid wash following. Education well received. Handout of recommendations was provided. Status Active ST Patient: Active Contact Information [facility] Speech Therapy:: Johana Suarez M.A. [facility]-MAT MAKING MACHINE TENDER Speech-Language Pathologist [facility] [address] [place] [address] [email or web address] [phone]
== END | disposition home or self-care (01) ==
LOC: RAD 12:39
PROVIDERS: PCP Internal Medicine; Referring Provider Internal Medicine; Visit Provider Internal Medicine
DX: R13.10 Dysphagia, unspecified (principal)
CPT/HCPCS: 74230; 92611

== ENCOUNTER → 2025-08-18 | Outpatient (CLI) | payer MEDICARE, OTHER, SELFPAY ==
[2024-05-05 13:46] VITALS: BMI 28.1
[2025-08-18 09:55] LABS: Mucous, Urine 0 SEEN /hpf (<or=2+); Red Blood Cells-Urine 0 SEEN /hpf (0-5); Squamous Epithelial Cells - UA 0 SEEN /hpf (0-5)
[2025-08-18 12:28] LABS: Color, Urine Yellow (Yellow); Glucose, Dipstick Normal (Normal); Ketone-Dipstick Negative (Negative); Leukocyte Esterase-Dipstick Negative /ul (Negative); Nitrite-Dipstick Negative (Negative); Occult Blood-Urine Negative /ul (Negative); Protein-Dipstick 15 mg/dl (Negative); Specific Gravity, Urine 1.010 (1.002-1.030); Urine Bilirubin Dipstick Negative (Negative)
[2025-08-18 12:34] LABS: Hematocrit 41.1 % (40-54); Hemoglobin 13.4 g/dL (13.0-16.5); Immature Granulocytes Count 0.210 X10^3/uL (0.0-0.0); Mean Corp Hgb Conc 32.6 g/dL (32-36); Mean Corpuscular Volume 89.5 fL (80-94); Mean Platelet Vol. 9.9 fl (6.2-12.0); NRBC Flagged by Analyzer 0 % (0-5); Platelet Count 399 K/mm3 (150-450); RBC Distribution Width CV 14.6 % (11.6-14.6); RBC Distribution Width SD 47.6 fl (35.1-43.9); Red Blood Count 4.59 M/mm3 (4.6-6.2); White Blood Count 10.5 K/mm3 (4.4-11.0)
[2025-08-18 13:01] LABS: AST(SGOT) 21 U/L (<=37); Alanine Aminotransfer ALT/SGPT 36 U/L (<=46); Albumin, Serum 3.8 g/dL (3.4-4.8); Alkaline Phosphatase 36 U/L (40-129); Anion Gap 11 (5-15); BUN 26 mg/dL (4-19); BUN/Creat Ratio 18.9 RATIO (10-20); Calcium,Total 9.8 mg/dL (7.6-11.0); Carbon Dioxide 26.6 mmol/L (21.0-32.0); Chloride 104 mmol/L (98-108); Cholesterol 147 mg/dL (<=200); Free T3 1.9 pg/mL (2.18-3.98); Globulin 2.7 g/dL (2.2-4.2); Glucose 72 mg/dL (70-99); Low Density Lipoprotein Calc. 67 mg/dL; Potassium 4.0 mmol/L (3.3-5.1); Triglycerides 114 mg/dL; Very Low Density Lipoprotein 23 mg/dL (5-40); cholesterol:hdl ratio screen 2.47
[2025-08-18 13:11] LABS: Creatinine, Urine (random) 91.40 mg/dL (39.00-259.00); Microalbumin,Random Urine 19.5 mg/L (<20 mg/L)
== END | disposition home or self-care (01) ==
LOC: MTLAB 09:49
PROVIDERS: PCP Internal Medicine; Referring Provider Internal Medicine; Visit Provider Internal Medicine
DX: Z51.81 Encounter for therapeutic drug level monitoring (principal); R73.09 Other abnormal glucose; E78.00 Pure hypercholesterolemia, unspecified; R05.9 Cough, unspecified
CPT/HCPCS: 36415; 80053; 80061; 81001; 82043; 82570; 84439; 84443; 84481; 85025